=== PATIENT | female | born 1975 | race Caucasian/White ===

== ENCOUNTER 2019-10-25 07:44 | Outpatient (CLI) | payer MEDICARE, MEDICAID, SELFPAY ==
--- NOTE | 2019-10-26 | US_ITS ---
WS: [id number] Right upper quadrant ultrasound, 10/25/2019 Clinical Data: GRANULOMA OF LIVER Comparison: Right upper quadrant ultrasound, 01/30/2015. Findings: The gallbladder is absent The common bile duct is nondilated and there are no intrahepatic ductal abnormalities. Liver shows no cysts, masses or dilated intrahepatic ducts. The liver measures 16.96 cm. The pancreas is obscured by overlying bowel gas but no cyst, pseudocyst, or evidence of pancreatitis is noted. Right kidney measures 10.96 cm and no cyst, masses or hydronephrosis can be seen. The aorta and inferior vena cava show no vascular abnormalities. US/US liver [id number] Impression: 1. Absent gallbladder. 2. Negative for acute right upper quadrant abnormalities.
== END 2019-10-25 07:45 | disposition home or self-care (01) ==
PROVIDERS: Family Provider Family Medicine; PCP Family Medicine; Visit Provider Internal Medicine Rheumatology
DX: D86.89 Sarcoidosis of other sites (principal); Z90.49 Acquired absence of other specified parts of digestive tract
CPT/HCPCS: 76705

== ENCOUNTER 2019-11-09 07:04 | Outpatient (CLI) | payer MEDICARE, MEDICAID, SELFPAY | END 2019-11-09 07:05 | disposition home or self-care (01) | PROVIDERS: Family Provider Family Medicine; PCP Family Medicine; Visit Provider Internal Medicine Critical Care Medicine | DX: D86.0 Sarcoidosis of lung (principal) | CPT/HCPCS: 94060; 94726; 94729 ==

== ENCOUNTER 2019-11-14 09:26 | Outpatient (CLI) | payer MEDICARE, MEDICAID, SELFPAY ==
--- NOTE | 2019-11-14 09:38 | NM_ITS ---
WS: [id number] NUCLEAR MEDICINE PARATHYROID SCAN HISTORY: HYPERPARATHYROIDISM COMPARISON: None available. Patient is injected with 18.9 mCi technetium 99m Sestamibi. Static imaging of the anterior neck and u pper thorax submitted at injection time and 2 hours postinjection. Sternal notch marker and chin nadia ers are placed. Normal activity and uptake in the thyroid gland bilaterally on the early imaging. On the delayed imag ing, activity from the thyroid gland has washed out. There is no persistent focal nodule to suggest p arathyroid adenoma. NM/NM parathyroid [id number] IMPRESSION: No parathyroid adenoma identified.
== END 2019-11-14 09:27 | disposition home or self-care (01) ==
LOC: RAD 09:31
PROVIDERS: Family Provider Family Medicine; PCP Family Medicine; Visit Provider Internal Medicine Critical Care Medicine
DX: E21.3 Hyperparathyroidism, unspecified (principal)
CPT/HCPCS: 78070; A9500

== ENCOUNTER → 2019-11-28 14:17 | Outpatient (BNVA) | payer MEDICARE, MEDICAID, SELFPAY | PROVIDERS: Family Provider Family Medicine; PCP Family Medicine; Visit Provider Anesthesiology Pain Medicine | DX: D86.9 Sarcoidosis, unspecified (principal); M47.816 Spondylosis without myelopathy or radiculopathy, lumbar region; M25.50 Pain in unspecified joint | CPT/HCPCS: 99203; 99999 ==

== ENCOUNTER → 2019-12-04 08:25 | Outpatient (BNVA) | payer MEDICARE, MEDICAID, SELFPAY | PROVIDERS: Family Provider Family Medicine; PCP Family Medicine; Visit Provider Nurse Practitioner | DX: F43.12 Post-traumatic stress disorder, chronic (principal); F31.5 Bipolar disorder, current episode depressed, severe, with psychotic features | CPT/HCPCS: 99214 ==

== ENCOUNTER → 2019-12-06 09:29 | Outpatient (BNVA) | payer MEDICARE, MEDICAID, SELFPAY | PROVIDERS: Family Provider Family Medicine; PCP Family Medicine; Visit Provider Internal Medicine Rheumatology | DX: M06.00 Rheumatoid arthritis without rheumatoid factor, unspecified site (principal); Z79.899 Other long term (current) drug therapy; M47.816 Spondylosis without myelopathy or radiculopathy, lumbar region; D86.9 Sarcoidosis, unspecified | CPT/HCPCS: 36415; 80076; 82565; 85025; 85651; 86140 ==

== ENCOUNTER → 2019-12-06 09:52 | Outpatient (BNVA) | payer MEDICARE, MEDICAID, SELFPAY | PROVIDERS: Family Provider Family Medicine; PCP Family Medicine | DX: M06.00 Rheumatoid arthritis without rheumatoid factor, unspecified site (principal); Z79.899 Other long term (current) drug therapy; M47.816 Spondylosis without myelopathy or radiculopathy, lumbar region; D86.9 Sarcoidosis, unspecified | CPT/HCPCS: 85025 ==

== ENCOUNTER → 2019-12-10 12:19 | Outpatient (BNVA) | payer MEDICARE, MEDICAID, SELFPAY | PROVIDERS: Family Provider Family Medicine; PCP Nurse Practitioner Family; Visit Provider Anesthesiology Pain Medicine | DX: M47.816 Spondylosis without myelopathy or radiculopathy, lumbar region (principal) | CPT/HCPCS: 64493; 64494; 64495; 64520; 77003; J2001; J3490 ==

== ENCOUNTER → 2019-12-26 10:48 | Outpatient (BNVA) | payer MEDICARE, MEDICAID, SELFPAY | PROVIDERS: Family Provider Family Medicine; PCP Family Medicine; Visit Provider Anesthesiology Pain Medicine | DX: M47.816 Spondylosis without myelopathy or radiculopathy, lumbar region (principal); D86.9 Sarcoidosis, unspecified; M25.50 Pain in unspecified joint | CPT/HCPCS: 99213; 99999 ==

== ENCOUNTER → 2020-01-22 07:25 | Outpatient (BNVA) | payer MEDICARE, MEDICAID, SELFPAY | PROVIDERS: Family Provider Family Medicine; PCP Family Medicine; Visit Provider Nurse Practitioner | DX: F31.5 Bipolar disorder, current episode depressed, severe, with psychotic features (principal); F43.12 Post-traumatic stress disorder, chronic | CPT/HCPCS: 99214 ==

== ENCOUNTER → 2020-01-23 09:49 | Outpatient (BNVA) | payer MEDICARE, MEDICAID, SELFPAY | PROVIDERS: Family Provider Family Medicine; PCP Family Medicine; Visit Provider Anesthesiology Pain Medicine | DX: M47.816 Spondylosis without myelopathy or radiculopathy, lumbar region (principal); D86.9 Sarcoidosis, unspecified; M25.50 Pain in unspecified joint; Z79.899 Other long term (current) drug therapy | CPT/HCPCS: 99213 ==

== ENCOUNTER → 2020-02-05 11:44 | Outpatient (BNVA) | payer MEDICARE, MEDICAID, SELFPAY | PROVIDERS: Family Provider Family Medicine; PCP Family Medicine; Visit Provider Social Worker | DX: F43.12 Post-traumatic stress disorder, chronic (principal); F31.5 Bipolar disorder, current episode depressed, severe, with psychotic features | CPT/HCPCS: 90834 ==

== ENCOUNTER → 2020-03-04 07:45 | Outpatient (BNVA) | payer MEDICARE, MEDICAID, SELFPAY | PROVIDERS: Family Provider Family Medicine; PCP Family Medicine; Visit Provider Nurse Practitioner | DX: F43.12 Post-traumatic stress disorder, chronic (principal); F31.5 Bipolar disorder, current episode depressed, severe, with psychotic features | CPT/HCPCS: 99214 ==

== ENCOUNTER → 2020-03-05 08:43 | Outpatient (BNVA) | payer MEDICARE, MEDICAID, SELFPAY | PROVIDERS: Family Provider Family Medicine; PCP Family Medicine; Visit Provider Social Worker | DX: F31.5 Bipolar disorder, current episode depressed, severe, with psychotic features (principal); F43.12 Post-traumatic stress disorder, chronic | CPT/HCPCS: 90834 ==

== ENCOUNTER → 2020-03-07 10:05 | Outpatient (BNVA) | payer MEDICARE, MEDICAID, SELFPAY | PROVIDERS: Family Provider Family Medicine; PCP Nurse Practitioner Family; Visit Provider Anesthesiology Pain Medicine | DX: M47.816 Spondylosis without myelopathy or radiculopathy, lumbar region (principal); M54.9 Dorsalgia, unspecified; D86.9 Sarcoidosis, unspecified; M25.50 Pain in unspecified joint | CPT/HCPCS: 99214 ==

== ENCOUNTER → 2020-03-12 08:38 | Outpatient (BNVA) | payer MEDICARE, MEDICAID, SELFPAY | PROVIDERS: Family Provider Family Medicine; PCP Nurse Practitioner Family; Visit Provider Social Worker | DX: F31.5 Bipolar disorder, current episode depressed, severe, with psychotic features (principal); F43.12 Post-traumatic stress disorder, chronic | CPT/HCPCS: 90834 ==

== ENCOUNTER → 2020-03-24 12:58 | Outpatient (BNVA) | payer MEDICARE, MEDICAID, SELFPAY | PROVIDERS: Family Provider Family Medicine; PCP Registered Nurse; Visit Provider Anesthesiology Pain Medicine | DX: M47.816 Spondylosis without myelopathy or radiculopathy, lumbar region (principal) | CPT/HCPCS: 64493; 64494; 64495; J2001; J3490 ==

== ENCOUNTER → 2020-03-31 10:54 | Outpatient (BNVA) | payer MEDICARE, MEDICAID, SELFPAY | PROVIDERS: Family Provider Family Medicine; PCP Registered Nurse; Visit Provider Internal Medicine Rheumatology | DX: Z79.899 Other long term (current) drug therapy (principal) | CPT/HCPCS: 36415; 80076; 82565; 85025; 85651; 86140 ==

== ENCOUNTER → 2020-04-10 08:20 | Outpatient (BNVA) | payer MEDICARE, MEDICAID, SELFPAY | PROVIDERS: Family Provider Family Medicine; PCP Registered Nurse; Visit Provider Anesthesiology Pain Medicine | DX: M47.816 Spondylosis without myelopathy or radiculopathy, lumbar region (principal); M54.9 Dorsalgia, unspecified; D86.9 Sarcoidosis, unspecified; M25.50 Pain in unspecified joint | CPT/HCPCS: 99214 ==

== ENCOUNTER → 2020-04-16 14:12 | Outpatient (BNVA) | payer MEDICARE, MEDICAID, SELFPAY | PROVIDERS: Family Provider Family Medicine; PCP Registered Nurse; Visit Provider Anesthesiology Pain Medicine | DX: M47.816 Spondylosis without myelopathy or radiculopathy, lumbar region (principal); M54.9 Dorsalgia, unspecified | CPT/HCPCS: 64635; 64636; 77003; J1030; J2001 ==

== ENCOUNTER → 2020-04-30 07:33 | Outpatient (BNVA) | payer MEDICARE, MEDICAID, SELFPAY | PROVIDERS: Family Provider Family Medicine; PCP Registered Nurse; Visit Provider Nurse Practitioner | DX: F43.12 Post-traumatic stress disorder, chronic (principal); F31.5 Bipolar disorder, current episode depressed, severe, with psychotic features | CPT/HCPCS: 99213 ==

== ENCOUNTER 2020-05-09 11:21 | Outpatient (CLI) | payer MEDICARE, MEDICAID, SELFPAY ==
[2020-05-09 15:42] LABS: Calcium 8.9 mg/dL (8.5-10.5); Parathyroid Hormone 49.6 pg/mL (15-65)
== END 2020-05-09 11:22 | disposition home or self-care (01) ==
LOC: LAB 11:27
PROVIDERS: Internal Medicine Critical Care Medicine; Family Provider Family Medicine; PCP Registered Nurse; Visit Provider Nurse Practitioner Family
DX: E83.52 Hypercalcemia (principal)
CPT/HCPCS: 36415; 82310; 83970

== ENCOUNTER → 2020-05-16 13:05 | Outpatient (BNVA) | payer MEDICARE, MEDICAID, SELFPAY | PROVIDERS: Family Provider Family Medicine; PCP Registered Nurse; Visit Provider Anesthesiology Pain Medicine | DX: M47.816 Spondylosis without myelopathy or radiculopathy, lumbar region (principal); M54.9 Dorsalgia, unspecified; D86.9 Sarcoidosis, unspecified; M25.50 Pain in unspecified joint | CPT/HCPCS: 99212; 99213 ==

== ENCOUNTER 2020-05-30 09:23 | Outpatient (CLI) | payer MEDICARE, MEDICAID, SELFPAY ==
--- NOTE | 2020-05-30 09:29 | XRR_ITS ---
PROCEDURE INFORMATION: Exam: XR Right Foot Complete Exam date and time: 05/30/2020 9:45 AM Age: 44 years old Clinical indication: Condition or disease; Foot deformities; Hammer toe (acquired); Right; Additional info: Hammer toe evaluation TECHNIQUE: Imaging protocol: XR Right foot. Views: 3 or more views. COMPARISON: CR Foot 3 views, RIGHT* [id number] 09/17/2019 3:47 PM FINDINGS: Bones/joints: Hindfoot-midfoot and midfoot-forefoot articulations are normal. Phalanges without an acute process. Subtalar joint and the tibiotalar joint appears normal. Apparent flexion deformity of the 3rd and 4th rays. Previously noted. Soft tissues: Normal. Other findings: Metatarsals without fracture. XR/XR foot RT min 3V* [id number] IMPRESSION: No fracture or foreign body.
== END 2020-05-30 09:24 | disposition home or self-care (01) ==
LOC: RAD 09:26
PROVIDERS: PCP Nurse Practitioner Family; Visit Provider Podiatrist Foot & Ankle Surgery
DX: M20.41 Other hammer toe(s) (acquired), right foot (principal)
CPT/HCPCS: 73630

== ENCOUNTER → 2020-07-03 10:09 | Outpatient (BNVA) | payer MEDICARE, MEDICAID, SELFPAY | PROVIDERS: PCP Nurse Practitioner Family; Visit Provider Anesthesiology Pain Medicine | DX: M47.816 Spondylosis without myelopathy or radiculopathy, lumbar region (principal); M54.9 Dorsalgia, unspecified; D86.9 Sarcoidosis, unspecified; M25.50 Pain in unspecified joint | CPT/HCPCS: 99213 ==

== ENCOUNTER 2020-07-16 11:38 | Outpatient (CLI) | payer MEDICARE, MEDICAID, SELFPAY ==
--- NOTE | 2020-07-16 11:46 | ECG_ITS ---
[facility] Test Date: 2020-07-16 Pat Name: Bernie Stone Department: Room: Gender: Female [employer] Handler: : 1975 Requested By: Jennifer Tomas Order Number: [id number] Sanchez MD: Vickie Mercado M.D. Interpretive Statements NAME OF STUDY: TREADMILL STRESS ECHOCARDIOGRAM INDICATION: Chest Pain Baseline blood pressure of 103/68 mm Hg, heart rate of 60 beats per minute and oxygen saturation of 97%. EKG showed normal sinus rhythm, normal axis with nonspecific T wave abnormality. The patient exercised for 5 minutes 34 seconds on a standard Froilan protocol. Patient attained a maximum heart rate of 153 beats per minute(87% of the maximum predicted heart rate) with a blood pressure at the peak exercise of 193/93 mm Hg and oxygen saturation of 88%. The EKG at the peak exercise revealed sinus tachycardia with no significant ST-T wave changes. Patient did not have any chest pain or any significant arrhythmis with the exercise. Study was terminated due to exertional fatigue. During the recovery phase, there were no new changes. Blood pressure at the end of the recovery phase was 176/84 mm Hg with a heart rate of 84 beats per minute and oxygen saturation 97%. Echocardiographic images were obtained at rest, at peak stress and in recovery. CONCLUSION: 1. Normal EKG response to treadmill exercise. 2. No exercise-induced chest pain or cardiac arrhythmia 3. Slightly decreased exercise tolerance, attained a maximum of 7 METs. Maximum VO2 of 24.5 mL/kg/min. 4. Baseline normal blood pressure with normal response to exercise. 5. Echocardiographic portion of the study will be documented separately. Electronically Signed On 07-16-2020 17:43:51 CDT by Vickie Mercado M.D. [id number]
[2020-07-16 12:14] VITALS: BMI 36.0
--- NOTE | 2020-07-16 12:23 | USCV_ITS ---
Bernie Stone Age: 45 Gender: F : 1975 Exam Date: 07/16/2020 12:38 Ordering Phys: Jennifer Tomas Technologist: Bob Linton Exam Location: [facility] [place] Indication: chest pain Rhythm: Sinus Patient History: htn, obesity, Cardiac Medications: prazosin Medications in past 24 hours: none Contrast: Stress Results Protocol: Froilan Total dose(mL): Exercise Duration (min:sec): 5:34 METS: 7 Resting HR: 86 Resting BP: 103 / 68 Peak HR: 153 Peak BP: 237 / 93 Max Predicted HR: 174 88 % Max Predicted HR Target HR: 148 Double Product: 01114 Stress Summary: BP Response: normal Reason for Termination: target hr reached Cardiac Symptoms: sob ECG Analysis Resting ECG: Stress ECG: Arrhythmia: MEASUREMENTS (Male/Female) Normal Values FINDINGS Baseline images: Normal left ventricle ejection function without wall motion abnormality, estimated left ventricle ejection fraction around 65%. At peak exercise no significant wall motion abnormality noted left ventricle function remains hyperdynamic with good augmentation of cavity. Recovery: No significant wall motion abnormality noted. Recovery remains uneventful. CONCLUSIONS Echocardiographic portion of left ventricle is not suggestive of ischemia. EKG segment will be documented separately. Kashif Escobedo MD (Electronically Signed) Final Date: 16 July 2020 18:46 S
[2020-07-16 13:04] VITALS: BP 176/84; PULSE 83
== END 2020-07-16 11:39 | disposition home or self-care (01) ==
LOC: CDL 11:39
PROVIDERS: PCP Nurse Practitioner Family; Visit Provider Nurse Practitioner Family
DX: R07.9 Chest pain, unspecified (principal)
CPT/HCPCS: 93017; 93350

== ENCOUNTER → 2020-08-06 08:33 | Outpatient (BNVA) | payer MEDICARE, MEDICAID, SELFPAY | PROVIDERS: PCP Nurse Practitioner Family; Visit Provider Nurse Practitioner | DX: F43.12 Post-traumatic stress disorder, chronic (principal); F31.5 Bipolar disorder, current episode depressed, severe, with psychotic features | CPT/HCPCS: 99214 ==

== ENCOUNTER → 2020-08-28 07:33 | Outpatient (BNVA) | payer MEDICARE, MEDICAID, SELFPAY | PROVIDERS: PCP Nurse Practitioner Family; Visit Provider Nurse Practitioner | DX: F31.5 Bipolar disorder, current episode depressed, severe, with psychotic features (principal); F43.12 Post-traumatic stress disorder, chronic | CPT/HCPCS: 99214 ==

== ENCOUNTER → 2020-09-08 10:53 | Outpatient (BNVA) | payer MEDICARE, MEDICAID, SELFPAY | PROVIDERS: PCP Nurse Practitioner Family; Visit Provider Podiatrist Foot & Ankle Surgery | DX: M20.41 Other hammer toe(s) (acquired), right foot (principal); M20.42 Other hammer toe(s) (acquired), left foot | CPT/HCPCS: 87635 ==

== ENCOUNTER 2020-09-11 06:02 | Day surgery (SDC) | payer MEDICARE, MEDICAID, SELFPAY ==
[2020-09-10 16:19] VITALS: BMI 36.6
--- NOTE | 2020-09-11 | SCC_ITS ---
Procedure Done: Hammertoe Correction right third 23901 1 second of fluoroscopic guidance, for a cumulative dose of 0.005 mGy, was provided to Dr. Godfrey by the radiology department. C-arm images of the RIGHT foot were saved for the patient's permanent record. [facility]
[2020-09-11 06:16] VITALS: BP 170/122; PULSE 73; RESP 18; TEMP 36.2; O2SAT 96
[2020-09-11 06:29] VITALS: BP 122/86
[2020-09-11] MEDS: sodium chloride 0.9% 1,000 ML 30 ML IV (06:29)
[2020-09-11 06:37] VITALS: BMI 36.6
--- NOTE | 2020-09-11 06:38 | P.OP_ITS ---
Operative Report Date of procedure: September 11, 2020 Pre-op Diagnosis: Right third hammertoe Post-op diagnosis: same Post-op Findings: None Procedure Done: Hammertoe Correction right third [id number] Implants: 3-0 Prolene, 4-0 nylon, [place] 28 TenoTac small Specimens removed/disposition: None Pathology: none sent Surgeon: Errol Godfrey D.P.M. Premium Auditor: Enrrique Anesthesia: MAC Estimated blood loss: 5 mL Tourniquet time: See intraoperative documentation IV fluids: None Urine output: None Complications: None none Findings: None Condition: stable Disposition: PACU Brief History: Ms. Stone is a pleasant 45-year-old female complains of right third hammertoe pain, has tried accommodative shoes, spacers and padding without relief. Wishing to proceed with surgical intervention with hammertoe correction of the right third digit. She has transverse and sagittal plane components the main focus is sagittal plane deformity that is reducible and contracted at the distal interphalangeal joint and proximal interphalangeal joint. Discussed tendon transfer for hammertoe correction patient is agreeable wishes to proceed risks include pain, bleeding, numbness, infection, failure to correct deformity, overcorrection of deformity, transfer pressure, transfer lesion, damage to adjacent soft tissue structures, painful scar and need for further surgical intervention. Patient seen in preoperative holding, right foot identified and marked, informed consent signed answered all questions to patient satisfaction she wishes to proceed no guarantees written, expressed or implied. Procedure: Under mild sedation the patient was brought to the operating room and placed on the operating table in the supine position. A timeout was performed. Anesthesia was then administered by the anesthesia service. Local anesthesia injected by myself consisting of 15 cc of 0.5% Marcaine plain and a right third ray block fashion. Well-padded pneumatic tourniquet applied to the right ankle. Right lower extremity was scrubbed, prepped and draped utilizing normal aseptic technique. Attention was directed to the dorsum of the right proximal phalanx where the metatarsophalangeal joint was palpated just distal to this a linear longitudinal incision was made with a #15 blade through skin and blunt and sharp dissection c arried down through subcutaneous tissue down to the level periosteum with the extensor tendons retracted manually in a manual fashion medially. Care was taken to retract and preserve neurovascular and tendinous structures. All bleeders were ligated and cauterized as necessary. Guidewire was inserted perpendicular to the longitudinal axis of the proximal phalanx at the metaphyseal flare from dorsal to plantar followed by plantar incision at the same level of the proximal phalanx right third digit with dissection carried down to the flexor tendons as able to identify the flexor digitorum longus and brevis these were bisected and a hand drill utilized to sandoval the cortex plantarly and dorsally, incision site was flushed with saline solution. [place] TenoTac utilized to secure and transfer the flexor digitorum longus and brevis to the base of the right third proximal phalanx and secured with a small female fitting. Tendon transfer was secure and toe held in a rectus position for appr opriate tension. Incision site was flushed with saline solution. Right third toe was rectus in the sagittal plane both resting as well as loading the forefoot. Hardware placement confirmed utilizing intraoperative fluoroscopy. Incision sites were flushed with copious months of sterile saline solution dorsal incision closed with 4-0 nylon plantar incision closed with 3-0 Prolene. Incision sites were dressed with Adaptic, sterile 4 x 4, Kerlix and Rios wrap postop shoe was applied. Tourniquet was deflated and a prompt hyperemic response was noted to the distal digits of the right foot. Patient tolerated the procedure well and was transferred to the PACU with vital signs stable and vascular status intact. Following a period of postoperative monitoring she will be discharged home may be protected weightbearing in a postop shoe. She is to elevate her right foot while at rest. Was prescribed hydrocodone 10/325 mg every 4 hours as needed for pain she is to take this judiciously. Will follow up 09/17/2020 at 9:30 AM for dressing change and nursing visit.
--- NOTE | 2020-09-11 06:38 | P.HPUD_ITS ---
Surgery/Procedure H&P Update DATE OF PROCEDURE: September 11, 2020 DATE H&P PERFORMED: 08/20/20 H&P UPDATE INFORMATION: I have reviewed H&P completed within last 30 days, I have examined patient prior to procedure, No changes to prior documentation and H&P is in [facility] EMR on date indicated PREOP DIAGNOSIS: Right third hammertoe PLANNED PROCEDURE: Operation Date: 09/11/20 07:00 Proposed Procedures p Hammertoe Correction right third 73050 icd10 m20.41(Right) - Errol Godfrey DPM
--- NOTE | 2020-09-11 06:42 | ANES.PREANE2 ---
Pre-Anesthetic Assessment Pre-Anesthetic Assessment: Height/Weight: Height 1.57 m Weight 90.718 kg Temp Pulse Resp BP Pulse Ox 97.1 F L 73 18 122/86 96 09/11/20 06:16 09/11/20 06:16 09/11/20 06:16 09/11/20 06:29 09/11/20 06:16 Preop Diagnosis: Right third hammertoe Proposed Procedure: Operation Date: 09/11/20 07:00 Proposed Procedures p Hammertoe Correction right third 56875 icd10 m20.41(Right) - Errol Godfrey DPM Familial anesthetic complications: None Was Beta Kezia taken within 24 hours: N/A Last intake: Intake nPO > 8 hrs Last Liquid Date 09/10/20 Last Liquid Time 22:00 Last Solid Date 09/10/20 Last Solid Time 20:00 Social: Social History: No alcohol and No tobacco Exam: Pre-Anes Outpt Exam: alert, oriented x 3, clear to auscultation bilaterally and regular rate & rhythm Airway: Cervical ROM: WNL MP: 4 Dentition: Chipped and Other (missing (poor dentition)) Additional comments: large neck and tongue Pulmonary: Pulmonary: Asthma Comments: hypersomnia Metabolic: Metabolic: Morbid obesity Anesthetic Plan: ASA status: 2 Anesthesia: MAC Risk of > 500 ml blood loss (7ml/kg in children): No Meds/Allergies Current Medications: Current Medications Generic Name Dose Route Start Last Admin Trade Name Freq PRN Reason Stop Dose Admin Sodium Chloride 1,000 mls @ 30 ml s/hr 09/11/20 06:15 09/11/20 06:29 Sodium Chloride 0.9% IV 09/12/20 06:14 30 mls/hr .Q24H KATY Administration PFSH Anesthesia PFSH: Medical History Bipolar disorder, current episode depressed, severe, with psychotic features Calculus of left ureter Cystitis cystica DDD (degenerative disc disease) Depression Essential (primary) hypertension GERD (gastroesophageal reflux disease) Hepatic granuloma associated with sarcoidosis High risk medication use Hyperparathyroidism, unspecified Hypoglobulinemia Hypokalemia Immunization counseling Kidney stone Left breast mass Osteopenia Osteoporosis Other specified disorders involving the immune mechanism, not elsewhere classified Personal history of other (healed) physical injury and trauma Post-traumatic stress disorder, chronic Retained ureteral stent Sarcoidosis Surgical History H/O bilateral mastectomy History of appendectomy History of cholecystectomy History of hysterectomy Family History Other Cancer Diabetes Hypertension Psychiatric illness Rheumatoid arthritis Stroke Denies family history of CAD (coronary artery disease) Systemic lupus erythematosus (SLE) in adult Social History Smoking and tobacco status: former smoker Quit status (tobacco): has quit using tobacco Year quit tobacco: 1994 - 10/25 PPD x 3 Years Second hand smoke exposure: Yes Alcohol intake: never Lives independently: Yes Household members: spouse Marital status: Current occupational status: disabled History of recent travel: No Current gender identity: Female Data Anesthesia Cardiac Studies: No Data to Display
[2020-09-11] MEDS: lidocaine 1% INJ 20 mL 10 ML SUBCUT (07:25)
[2020-09-11 07:51] VITALS: BP 135/98; PULSE 80; RESP 16; TEMP 36.4; O2SAT 94
--- NOTE | 2020-09-11 07:54 | XR_ITS ---
WS: [id number] Exam: XR foot RT min 3V* [id number] Date/Time of Exam: 09/11/2020 7:54 AM Reason For Exam: post op No fracture or dislocation. A single screw appears to be positioned in the proximal aspect of the pro ximal phalanx of the third toe. Mild DJD at the first MP joint. Soft tissue swelling over the dorsum of the forefoot. XR/XR foot RT min 3V* [id number] IMPRESSION: 1. Single orthopedic screw position in the proximal phalanx of the third toe. N o other postoperative changes. Dorsal soft tissue swelling over the forefoot.
[2020-09-11 08:10] VITALS: BP 129/93; PULSE 88; RESP 16; TEMP 36.4; O2SAT 97
[2020-09-11] MEDS: HYDROcodone-acetaminophen 10-325 mg Tablet 1 TAB PO (08:44)
--- NOTE | 2020-09-11 15:47 | ANE.PACU2 ---
Inpatient post-anesthesia follow up: Airway intact: Yes Vital signs: Temperature 97.6 F Pulse Rate 88 Respiratory Rate 16 Blood Pressure 129/93 Pulse Oximetry 97 Oxygen Delivery Me thod Room Air Oxygen Flow Rate Fraction of Inspir ed Oxygen Hydration adequate: Yes Nausea and vomiting: No Pain level: 3 Mental status: Baseline
== END 2020-09-11 08:48 | disposition home or self-care (01) ==
PROVIDERS: PCP Nurse Practitioner Family; Visit Provider Podiatrist Foot & Ankle Surgery
PROC: (CPT 28285; principal; 2020-09-11 07:00)
DX: M20.41 Other hammer toe(s) (acquired), right foot (principal); J45.909 Unspecified asthma, uncomplicated; E66.01 Morbid (severe) obesity due to excess calories; Z68.36 Body mass index [BMI] 36.0-36.9, adult; I10 Essential (primary) hypertension; M19.90 Unspecified osteoarthritis, unspecified site; K21.9 Gastro-esophageal reflux disease without esophagitis; Z87.891 Personal history of nicotine dependence; F32.9 Major depressive disorder, single episode, unspecified
CPT/HCPCS: 28285; 12345; 73630; 76000; 96365; C1713; C9290; J0690; J2250; J2405; J2704; J3010; J3490; J7030

== ENCOUNTER → 2020-09-25 07:34 | Outpatient (BNVA) | payer MEDICARE, MEDICAID, SELFPAY | PROVIDERS: PCP Nurse Practitioner Family; Visit Provider Nurse Practitioner | DX: F31.5 Bipolar disorder, current episode depressed, severe, with psychotic features (principal); F43.12 Post-traumatic stress disorder, chronic | CPT/HCPCS: 99213 ==

== ENCOUNTER → 2020-10-13 09:54 | Outpatient (BNVA) | payer MEDICARE, MEDICAID, SELFPAY | PROVIDERS: PCP Nurse Practitioner Family; Visit Provider Anesthesiology Pain Medicine | DX: G89.29 Other chronic pain (principal); M47.816 Spondylosis without myelopathy or radiculopathy, lumbar region; M54.9 Dorsalgia, unspecified; D86.9 Sarcoidosis, unspecified; M25.50 Pain in unspecified joint | CPT/HCPCS: 99213; 99214 ==

== ENCOUNTER 2020-10-20 08:28 | Outpatient (CLI) | payer MEDICARE, MEDICAID, SELFPAY | END 2020-10-20 08:29 | disposition home or self-care (01) | LOC: RAD 07-17 13:14 | PROVIDERS: Visit Provider Podiatrist Foot & Ankle Surgery | DX: M20.41 Other hammer toe(s) (acquired), right foot (principal); Z98.890 Other specified postprocedural states | CPT/HCPCS: 73630 ==

== ENCOUNTER → 2020-11-25 07:41 | Outpatient (BNVA) | payer MEDICARE, MEDICAID, SELFPAY | PROVIDERS: PCP Nurse Practitioner Family; Visit Provider Nurse Practitioner | DX: F31.5 Bipolar disorder, current episode depressed, severe, with psychotic features (principal); F43.12 Post-traumatic stress disorder, chronic | CPT/HCPCS: 99214 ==

== ENCOUNTER → 2020-12-16 09:19 | Outpatient (BNVA) | payer MEDICARE, MEDICAID, SELFPAY | PROVIDERS: PCP Nurse Practitioner Family; Visit Provider Anesthesiology Pain Medicine | DX: M47.816 Spondylosis without myelopathy or radiculopathy, lumbar region (principal); M54.9 Dorsalgia, unspecified; D86.9 Sarcoidosis, unspecified; M25.50 Pain in unspecified joint | CPT/HCPCS: 99214 ==

== ENCOUNTER 2021-01-30 09:25 | Emergency (ER) | payer MEDICARE, MEDICAID, SELFPAY ==
[2021-01-30 09:28] VITALS: BP 158/112; PULSE 74; RESP 18; TEMP 36.3; O2SAT 97; BMI 36.6
[2021-01-30 09:33] VITALS: BP 151/111; PULSE 77; RESP 22; O2SAT 98
--- NOTE | 2021-01-30 09:42 | ED_ITS ---
HPI - Nausea/Vomiting/Diarrhea General: Chief complaint: Nausea/Vomiting/Diarrhea Stated complaint: N/V/D Time Seen by Provider: 01/30/21 09:28 History of Present Illness: HPI Narrative: Patient complains of waking up with nausea vomiting diarrhea this morning. Said she was feeling fine yesterday. Denies any sick contacts. Patient does have some chills. But denies fever. Has pressure upper abdomen. MD elicited complaint: nausea, vomiting, diarrhea and abdominal pain Onset (ago): hour(s) Description of vomiting: food contents Description of diarrhea: semi-solid Associated nausea: Yes Associated abdominal pain: Yes Location of pain: Epigastric Pain consistency: intermittent Severity: moderate Quality: dull Exacerbating factors: none Relieving factors: none Associated symtoms: Reports no associated symptoms and nausea; Denies anxiety, change in vision, chest pain or headache(s) Review of Systems Const: Denies: fever(s), chills or body aches Eyes: Denies: change in vision or blurry vision ENMT: Denies: throat pain or nasal congestion Card: Denies: chest pain or dyspnea on exertion Resp: Denies: dyspnea, productive cough or non-productive cough GI: Reports: nausea, vomiting and diarrhea Musc: Denies: extremity pain Skin/Breast: Denies: rash Neuro: Denies: headache(s) Psych: Denies: anxiety or depression Candido/Lymph: Denies: easy bruising PFSH ED PFSH: Medical History Bipolar disorder, current episode depressed, severe, with psychotic features Calculus of left ureter Cystitis cystica DDD (degenerative disc disease) Depression Essential (primary) hypertension GERD (gastroesophageal reflux disease) Hepatic granuloma associated with sarcoidosis High risk medication use Hyperparathyroidism, unspecified Hypoglobulinemia Hypokalemia Immunization counseling Kidney stone Left breast mass Osteopenia Osteoporosis Other specified disorders involving the immune mechanism, not elsewhere classified Personal history of other (healed) physical injury and trauma Post-traumatic stress disorder, chronic Retained ureteral stent Sarcoidosis Surgical History H/O bilateral mastectomy History of appendectomy History of cholecystectomy History of hysterectomy Family History Other Cancer Diabetes Hypertension Psychiatric illness Rheumatoid arthritis Stroke Denies family history of CAD (coronary artery disease) Systemic lupus erythematosus (SLE) in adult Social History Smoking and tobacco status: former smoker Quit status (tobacco): has quit using tobacco Year quit tobacco: 10/25 PPD x 3 Years Second hand smoke exposure: Yes Alcohol intake: never Lives independently: Yes Household members: spouse Marital status: Current occupational status: disabled History of recent travel: No Current gender identity: Female Physical Exam Const: COMMON NORMALS: no acute distress, average body habitus and patient oriented x3 HENMT: COMMON NORMALS: normocephalic HEAD & SCALP: normal to inspection and normocephalic FACE & SINUS: normal facial exam Eye: COMMON NORMALS: conjunctivae normal GENERAL EYE: appearance normal, both eyes and all related structures CONJUNCTIVA: Yes conjunctivae normal Neck/C-Spine: COMMON NORMALS: no JVD Chest: COMMONS NORMALS: normal inspection of the chest Resp: COMMON NORMALS: normal respiratory effort and clear to auscultation bilaterally AUSCULTATION: clear to auscultation bilaterally Cardio: COMMON NORMALS: no JVD, regular rate and regular rhythm RATE: regular rate RHYTHM: regular rhythm GI: COMMON NORMALS: Normal to inspection, nondistended, normoactive bowel sounds present PALPATION: Yes Tenderness to palpation present (GI) (Epigastric) Extremity: COMMON NORMALS: normal to inspection and full ROM Neuro: COMMON NORMALS: patient oriented x3 Course Vital Signs: Vital signs: Vital Signs Temperature 97.3 F L 01/30/21 09:28 Pulse Rate 75 01/30/21 11:57 Respiratory Rate 16 01/30/21 11:57 Blood Pressure 184/145 01/30/21 11:57 Pulse Oximetry 97 01/30/21 11:57 MDM - Nausea/Vomiting/Diarrhea MDM Narrative: Medical decision making narrative: Patient feeling much better since she got the Zofran. There is been no episodes of vomiting here. Labs are stable except she does have a high sugar. She is encouraged to follow-up with her primary care provider and also take seriously her diabetic diet and check her sugars now on days and bring that log back and to her primary care provider Lab Data: Labs: Lab Results 04/09/21 04/09/21 04/09/21 Range/Units 09:39 09:39 11:01 WBC 18.8 H (4.0-10.0) 10^3/ uL RBC 5.82 H (4.1-5.3) 10^6/u L Hgb 16.4 H (11.5-15.3) g/dL Hct 48.1 H (37.0-47.0) % MCV 82.6 (81-99) fL MCH 28.2 (28.0-34.0) pg MCHC 34.1 (30.0-36.0) g/dL RDW 12.6 (12.1-15.1) % Plt Count 398 (130-400) 10^3/c mm MPV 9.8 (7.4-10.4) fL Neut % (Auto) 83.5 % Lymph % (Auto) 9.6 % [place] % (Auto) 4.1 % Eos % (Auto) 1.6 % Baso % (Auto) 0.6 % Neut # (Auto) 15.74 H (1.8-7.7) 10^3/u L Lymph # (Auto) 1.8 (0.8-4.8) 10^3/u L [place] # (Auto) 0.8 (0.2-0.9) 10^3/u L Eos # (Auto) 0.3 (0.0-0.8) 10^3/u L Baso # (Auto) 0.1 (0.0-0.1) 10^3/u L Nucleated RBC % (a uto) 0 % Nucleated RBCs # 0.0 /100WBC Sodium 134 L (136-145) mmol/L Potassium 3.3 L (3.5-5.1) mmol/L Chloride 101 (98-107) mmol/L Carbon Dioxide 18 L (22-29) mmol/L Anion Gap 18.3 (5-19) BUN 11 (6-20) mg/dL Creatinine 0.9 (0.5-0.9) mg/dL GFR Calculation 67.4 L (90-130) mL/min Glucose 245 H (65-115) mg/dL Calculated Osmolal ity 286 (285-295) mOsm/k g Calcium 9.9 (8.5-10.5) mg/dL Total Bilirubin 0.6 (0.15-1.2) mg/dL AST 25 (0-32) U/L ALT 29 (0-33) U/L Alkaline Phosphata se 273 H (35-105) IU/L Total Protein 8.3 (6.6-8.7) g/dL Albumin 4.4 (3.5-5.2) g/dL Globulin 3.9 (1.3-4.6) g/dL Lipase 20 (13-60) U/L Urine Color Yellow (Yellow) Urine Appearance Clear (CLEAR) Urine pH 7 (5-7) Ur Specific Gravit y 1.005 (1.005-1.030) Urine Protein Neg (Negative) Urine Glucose (UA) Norm (Normal) Urine Ketones 1+ H (Negative) Urine Blood Neg (Negative) Urine Nitrate Negative (Negative) Urine Bilirubin Neg (Negative) Urine Urobilinogen Norm (Negative) mg/dL Ur Leukocyte Lore ase Negative (Negative) Discharge Plan Discharge Patient Disposition: Home Clinical Impression: Gastroenteritis Diabetes mellitus Qualifiers: Diabetes mellitus type: type 2 Diabetes mellitus group home insulin use: without group home use Diabetes mellitus complication status: without complication Qualified Code(s): E11.9 - Type 2 diabetes mellitus without complications Condition: Stable Prescriptions: New Zofran 4 mg tablet 4 mg PO Q8H 3 Days Qty: 9 RF: 0 No Action tizanidine 4 mg tablet 4 mg PO BID PRN (Reason: muscle spasticity) Qty: 60 RF: 0 gabapentin 600 mg tablet 600 mg PO TID MDD 3 Qty: 90 RF: 2 venlafaxine [Effexor XR] 150 mg capsule,extended release 24hr 150 mg PO QAM Qty: 30 RF: 2 metoprolol succinate 50 mg tablet extended release 24 hr 50 mg PO QAM RF: 0 metoprolol succinate 100 mg tablet extended release 24 hr 100 mg PO QAM RF: 0 metformin 500 mg tablet extended release 24 hr 500 mg PO BID RF: 0 Vitamin D3 1 cap PO DAILY RF: 0 Ambien 10 mg tablet 10 mg PO BEDTIME RF: 0 fluticasone propionate 50 mcg/actuation spray,suspension 2 spray intranasal DAILY RF: 0 Latuda 80 mg tablet 80 mg PO QAM RF: 0 Discharge Orders: Discharge ED (Routine); Ordered 01/30/21 Ordered By: Crow Calixto Referrals: Jennifer Tomas FNP [Primary Care Provider] - Discharge Diet: Advance as tolerated Discharge Activity: Increase activity as tolerated Patient Instructions: Type 2 Diabetes, Gastroenteritis (ED) Activity Restrictions/Additional Instructions: Follow-up with medical provider as directed. Take medications as prescribed. Return to the ER or your medical provider if condition worsens. Please read and understand discharge instructions. If any questions ask please. 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
--- NOTE | 2021-01-30 09:46 | CT_ITS ---
WS: [id number] CT ABDOMEN AND PELVIS WITH CONTRAST HISTORY: pain, N/V TECHNIQUE: Imaging performed of the abdomen and pelvis with IV contrast. Single phase imaging of the abdomen. Coronal and sagittal reformats are submitted. All CT scans at [facility] use at least one of these dose optimization techniques: automated exposure control; mA and/or kV adjustment per patient size (includes targeted exams where dose is matched to clinical indication); or iterativ e reconstruction. IV CONTRAST: Omnipaque 300; 95 mL IV. Oral contrast: No DLP: 1666.57 mGy.cm COMPARISON: 11/24/2017 Lower thorax: Lung bases are clear. Heart is normal size. Small hiatal hernia. Liver/biliary system: Diffuse hepatic steatosis and hepatomegaly. Gallbladder: Status post cholecystectomy. Pancreas: Pancreatic atrophy. No evidence for pancreatitis. Spleen: Normal. Adrenal glands: Normal. No LEFT adrenal nodule. Right kidney: Cortical cysts and calcifications. No solid mass or obstruction. Left kidney: Small scattered hypodensities. These are too small to characterize completely a cyst. No obstruction or large solid mass otherwise. Aorta: Mild atherosclerosis with no aneurysm. Lymphadenopathy: None. Free fluid: None. GI tract: There is mild increased amount of fluid in the small bowel. No definite mucosal thickening although there is some very mild hyperemia within the colon and LEFT small bowel loops. Prior appende ctomy. Abdominal wall: Mild stranding in the soft tissues may be due to edema or injection sites. Pelvis: Prior hysterectomy. No soft tissues masses or adenopathy. Minimally distended urinary bladder . Bones: Unremarkable. CT/CT abdomen pelvis w con* [id number] IMPRESSION: 1. Very mild increase fluid in the small bowel and colon with mild hyperemia i nvolving portions of the small bowel and colon. Suspect a mild gastroenteritis which may be infectious or inflammatory. No obstruction. 2. Prior cholecystectomy. 3. Hepatic steatosis and hepatomegaly. 4. No renal obstruction. 5. No ascites. 6. Mild stranding in the subcutaneous soft tissues of the abdominal wall. May be injection sites or edema or cellulitis.
[2021-01-30] MEDS: sodium chloride 0.9% 1,000 ML 999 ML IV (09:48)
[2021-01-30] MEDS: ondansetron 2 mg/ML SDV 2 mL 8 MG IVP (09:48)
[2021-01-30 09:50] LABS: Basophils # 0.1 10^3/uL (0.0-0.1); Basophils % 0.6 %; Eosinophils # 0.3 10^3/uL (0.0-0.8); Eosinophils % 1.6 %; Hematocrit 48.1 % (37.0-47.0); Hemoglobin 16.4 g/dL (11.5-15.3); Lymphocytes # 1.8 10^3/uL (0.8-4.8); Lymphocytes % 9.6 %; Mean Corpuscular HGB Conc 34.1 g/dL (30.0-36.0); Mean Corpuscular Hemoglobin 28.2 pg (28.0-34.0); Mean Corpuscular Volume 82.6 fL (81-99); Mean Platelet Volume 9.8 fL (7.4-10.4); Monocytes # 0.8 10^3/uL (0.2-0.9); Monocytes % 4.1 %; Neutrophils # 15.74 10^3/uL (1.8-7.7); Neutrophils % 83.5 %; Nucleated Red Blood Cells % 0 %; Platelet Count 398 10^3/cmm (130-400); Red Blood Count 5.82 10^6/uL (4.1-5.3); Red Cell Distribution Width 12.6 % (12.1-15.1); White Blood Count 18.8 10^3/uL (4.0-10.0)
[2021-01-30 10:00] LABS: Alanine Aminotransferase 29 U/L (0-33); Albumin Level 4.4 g/dL (3.5-5.2); Alkaline Phosphatase 273 IU/L (35-105); Anion Gap 18.3 (5-19); Aspartate Amino Transferase 25 U/L (0-32); Blood Urea Nitrogen 11 mg/dL (6-20); Calcium 9.9 mg/dL (8.5-10.5); Carbon Dioxide 18 mmol/L (22-29); Chloride 101 mmol/L (98-107); Globulin 3.9 g/dL (1.3-4.6); Glomerular Filtration Rate 67.4 mL/min (90-130); Glucose 245 mg/dL (65-115); Lipase 20 U/L (13-60); Osmolality Calculated 286 mOsm/kg (285-295); Potassium 3.3 mmol/L (3.5-5.1); Sodium 134 mmol/L (136-145); Total Bilirubin 0.6 mg/dL (0.15-1.2); Total Protein 8.3 g/dL (6.6-8.7)
[2021-01-30] MEDS: iohexol 300 mg/mL 100 mL Btl IV (10:48)
[2021-01-30] MEDS: potassium chloride ER 20 mEq Tablet PO (10:56)
[2021-01-30 11:05] LABS: Add Urine Microscopic? NO; Charge for UA Resulting for Rev
[2021-01-30 11:06] VITALS: BP 184/145; PULSE 80; RESP 15; O2SAT 99
[2021-01-30 11:13] LABS: Bilirubin Urine Neg (Negative); Blood Urine Neg (Negative); Glucose Urine UA Norm (Normal); Ketones Urine 1+ (Negative); Leukocyte Esterase Urine Negative (Negative); Nitrate Urine Negative (Negative); Protein Urine Neg (Negative); Specific Gravity, Urine 1.005 (1.005-1.030); Urine Appearance Clear (CLEAR); Urine Color Yellow (Yellow); Urobilinogen Urine Norm (Negative); pH Urine 7 (5-7)
--- NOTE | 2021-01-30 11:34 | PC.PHAR ---
pt states she takes care of her own medications-pt had rx written on 12/10/20 for buspirone 15mg qid and 11/25/20 for hydroxyzine hcl 50mg tid prn pt states she didnt fill this medication and hasnt taken it for a while-pt states she had a symbicort inhaler last filled on 10/16/20 but doesnt use it-pt states she takes metoprolol er 50mg and 100mg-ext med history shows 50mg last filled on 11/09/20 30d/s pt states she had a build up of this medication and states thats why she hasnt filled it recently-100mg er ext med history shows last filled on 01/27/21
[2021-01-30 11:57] VITALS: BP 184/145; PULSE 75; RESP 16; O2SAT 97
== END 2021-01-30 11:58 | disposition home or self-care (01) ==
PROVIDERS: Emergency Provider Nurse Practitioner Family; PCP Nurse Practitioner Family
DX: K52.9 Noninfective gastroenteritis and colitis, unspecified (principal); E11.9 Type 2 diabetes mellitus without complications; Z79.84 Long term (current) use of oral hypoglycemic drugs; Z87.891 Personal history of nicotine dependence; K21.9 Gastro-esophageal reflux disease without esophagitis
CPT/HCPCS: 74177; 80053; 81003; 83690; 85025; 96361; 96374; 99283; J2405; J7030; Q9967

== ENCOUNTER → 2021-02-18 12:42 | Outpatient (BNVA) | payer MEDICARE, MEDICAID, SELFPAY | PROVIDERS: PCP Nurse Practitioner Family; Visit Provider Nurse Practitioner | DX: F31.5 Bipolar disorder, current episode depressed, severe, with psychotic features (principal); F43.12 Post-traumatic stress disorder, chronic | CPT/HCPCS: 99214 ==

== ENCOUNTER 2021-03-19 11:35 | Emergency (ER) | payer MEDICARE, MEDICAID, SELFPAY ==
[2021-03-19 11:48] VITALS: BP 167/121; PULSE 66; RESP 16; TEMP 36.4; O2SAT 97; BMI 35.1
--- NOTE | 2021-03-19 12:02 | CT_ITS ---
WS: [id number] CT ABDOMEN AND PELVIS WITH CONTRAST HISTORY: Abdominal pain., Right-sided flank pain with vomiting. TECHNIQUE: Imaging performed of the abdomen and pelvis with IV contrast. Single phase imaging of the abdomen. Coronal and sagittal reformats are submitted. All CT scans at [facility] use at least one of these dose optimization techniques: automated exposure control; mA and/or kV adjustment per patient size (includes targeted exams where dose is matched to clinical indication); or iterativ e reconstruction. IV CONTRAST: Omnipaque 300; 95 mL IV. Oral contrast: No DLP: 1704.05 mGy.cm COMPARISON: 01/30/2021 Lower thorax: Lung bases are clear. Heart is normal size. Small hiatal hernia. Liver/biliary system: Moderate hepatomegaly and hepatic steatosis. No mass identified. No bile duct d ilatation. Gallbladder: Status post cholecystectomy. Pancreas: Normal size pancreas and pancreatic duct. No adjacent inflammation. Spleen: Normal size spleen. No mass or infarct. Adrenal glands: Normal. Right kidney: Normal size RIGHT kidney. 0.5 cm cyst in the upper pole. Interval development of moderate RIGHT hydroureteronephrosis since the prior examination. Ureter is dilated secondary to a 6 mm calcification in the distal ureter. Additio nal nonobstructing 6 mm calcification in the lower pole. Left kidney: Nonobstructing 2 mm calcification in the upper pole. Aorta: Mild atherosclerosis with no aneurysm. Lymphadenopathy: None. Free fluid: None. GI tract: Prior appendectomy. No GI tract obstruction or wall thickening. There are a few diverticula without acute diverticulitis. Abdominal wall: Soft tissue stranding within the abdominal wall probably from injection sites. Pelvis: Prior hysterectomy. No free fluid or adenopathy. Urinary bladder is not distended. Bones: Unremarkable. CT/CT abdomen pelvis w con* [id number] IMPRESSION: 1. Moderate RIGHT hydroureteronephrosis secondary to a 6 mm distal ureteral ca lcification. New since 01/30/2021. 2. Additional nonobstructing bilateral renal calculi. 3. Prior appendectomy and hysterectomy. 4. Marked hepatomegaly and hepatic steatosis.
--- NOTE | 2021-03-19 12:06 | W.ED.GENADLT ---
HPI - General Adult General: Chief complaint: General Medical Stated complaint: R flank pain Time Seen by Provider: 03/19/21 11:56 History of Present Illness: HPI narrative: 45 yo femal presents with R flank pain that began overnight. Radiates from her right flank down into the groin a little bit into her back she is not noticed any hematuria. She denies any vomiting or diarrhea no dysuria urgency or frequency no fever Onset (ago): hour(s) Location: abdomen and right Radiation: back and flank Severity: mild Quality: aching Pain Consistency: intermittent Relieving factors: none Exacerbating factors: none Associated symptoms: Reports nausea; Deny chest pain, confusion, cough, diaphoresis, decreased appetite, dyspnea, fevers/chills, headache(s), malaise, rash, palpitations, seizures, short of breath, syncope, vomiting or weakness Treatments prior to arrival: none Review of Systems Const: Denies: malaise or diaphoresis ENMT: Denies: throat pain, ear or mastoid pain, nasal discharge or nasal congestion Card: Denies: chest pain, palpitations or syncope Resp: Denies: dyspnea GI: Reports: nausea; Denies: vomiting : Denies: flank pain, difficulty voiding, dysuria, urinary frequency or urinary urgency Skin/Breast: Denies: rash Neuro: Denies: headache(s) or confusion PFSH ED PFSH: Medical History Bipolar disorder, current episode depressed, severe, with psychotic features Calculus of left ureter Cystitis cystica DDD (degenerative disc disease) Depression Essential (primary) hypertension GERD (gastroesophageal reflux disease) Hepatic granuloma associated with sarcoidosis High risk medication use Hyperparathyroidism, unspecified Hypoglobulinemia Hypokalemia Immunization counseling Kidney stone Left breast mass Osteopenia Osteoporosis Other specified disorders involving the immune mechanism, not elsewhere classified Personal history of other (healed) physical injury and trauma Post-traumatic stress disorder, chronic Retained ureteral stent Sarcoidosis Surgical History H/O bilateral mastectomy History of appendectomy History of cholecystectomy History of hysterectomy Family History Other Cancer Diabetes Hypertension Psychiatric illness Rheumatoid arthritis Stroke Denies family history of CAD (coronary artery disease) Systemic lupus erythematosus (SLE) in adult Social History Smoking and tobacco status: former smoker Quit status (tobacco): has quit using tobacco Year quit tobacco: 1994 - 10/25 PPD x 3 Years Second hand smoke exposure: Yes Alcohol intake: never Lives independently: Yes Household members: spouse Marital status: Current occupational status: disabled History of recent travel: No Current gender identity: Female Physical Exam Const: COMMON NORMALS: no acute distress GENERAL APPEARANCE: cooperative and comfortable ORIENTATION/CONSCIOUSNESS: Yes awake, Yes oriented to person, Yes oriented to place and Yes oriented to time HENMT: COMMON NORMALS: normocephalic, atraumatic and hearing grossly normal bilaterally HEAD & SCALP: normocephalic and atraumatic Neck/C-Spine: COMMON NORMALS: no JVD Resp: COMMON NORMALS: normal respiratory effort, No retractions, No use of accessory muscles and clear to auscultation bilaterally AUSCULTATION: clear to auscultation bilaterally Cardio: COMMON NORMALS: no JVD, regular rate, regular rhythm and No murmurs present (Cardio) RATE: regular rate RHYTHM: regular rhythm GI: COMMON NORMALS: Soft to palpation and No hepatosplenomegaly present AUSCULTATION: Yes normoactive bowel sounds PALPATION: Yes Soft to palpation, No Tenderness to palpation present (GI), No Guarding due to palpation present (GI) and Yes No hepatosplenomegaly present : BLADDER/KIDNEY EXAM: Yes CVA tenderness Back/Pelvis: GENERAL BACK: Yes CVA tenderness CVA tenderness: right Extremity: COMMON NORMALS: normal to inspection, capillary refill normal, no clubbing, cyanosis or edema, no calf tenderness and no pedal edema Neuro: SENSORIUM/ORIENTATION: Yes oriented to person, Yes oriented to place and Yes oriented to time Skin: COMMON NORMALS: no rashes or lesions noted GENERAL SKIN EXAM: no rashes or lesions noted Course Vital Signs: Vital signs: Vital Signs Temperature 97.5 F L 03/19/21 11:48 Pulse Rate 66 03/19/21 11:48 Respiratory Rate 18 03/19/21 13:26 Blood Pressure 167/121 03/19/21 11:48 Pulse Oximetry 98 03/19/21 13:26 MDM - General Adult MDM Narrative: Medical decision making narrative: Reviewed findings with the patient. Her pain is under much better control she has a 6 mm distal ureteral stone. Discussed Dr. Elder as well with her pain under control discharge home with hydrocodone encourage her to be liberal with using pain medications to prevent worsening of symptoms. Also give her tamsulosin and set up to see Dr. Mao tomorrow have her strain her urine return if pain is uncontrolled Lab Data: Labs: Lab Results 03/19/21 03/19/21 03/19/21 Range/Units 12:15 12:15 13:06 WBC 11.7 H (4.0-10.0) 10^3/ uL RBC 5.27 (4.1-5.3) 10^6/u L Hgb 15.0 (11.5-15.3) g/dL Hct 44.6 (37.0-47.0) % MCV 84.6 (81-99) fL MCH 28.5 (28.0-34.0) pg MCHC 33.6 (30.0-36.0) g/dL RDW 12.8 (12.1-15.1) % Plt Count 294 (130-400) 10^3/c mm MPV 9.4 (7.4-10.4) fL Neut % (Auto) 68.3 % Lymph % (Auto) 23.6 % Ross % (Auto) 4.4 % Eos % (Auto) 2.6 % Baso % (Auto) 0.7 % Neut # (Auto) 7.96 H (1.8-7.7) 10^3/u L Lymph # (Auto) 2.8 (0.8-4.8) 10^3/u L Ross # (Auto) 0.5 (0.2-0.9) 10^3/u L Eos # (Auto) 0.3 (0.0-0.8) 10^3/u L Baso # (Auto) 0.1 (0.0-0.1) 10^3/u L Nucleated RBC % (a uto) 0 % Nucleated RBCs # 0.0 /100WBC Sodium 136 (136-145) mmol/L Potassium 3.6 (3.5-5.1) mmol/L Chloride 101 (98-107) mmol/L Carbon Dioxide 22 (22-29) mmol/L Anion Gap 16.6 (5-19) BUN 6 (6-20) mg/dL Creatinine 0.6 (0.5-0.9) mg/dL GFR Calculation 107.6 (90-130) mL/min Glucose 306 H (65-115) mg/dL Calculated Osmolal ity 291 (285-295) mOsm/k g Calcium 8.3 L (8.5-10.5) mg/dL Total Bilirubin 0.4 (0.15-1.2) mg/dL AST 31 (0-32) U/L ALT 30 (0-33) U/L Alkaline Phosphata se 219 H (35-105) IU/L Total Protein 7.0 (6.6-8.7) g/dL Albumin 4.0 (3.5-5.2) g/dL Globulin 3.0 (1.3-4.6) g/dL Lipase 23 (13-60) U/L Urine Color Yellow (Yellow) Urine Appearance Cloudy (CLEAR) Urine pH 7 (5-7) Ur Specific Gravit y 1.005 (1.005-1.030) Urine Protein Trace (Negative) Urine Glucose (UA) 4+ H (Normal) Urine Ketones Negative (Negative) Urine Blood 3+ H (Negative) Urine Nitrate Negative (Negative) Urine Bilirubin Neg (Negative) Urine Urobilinogen Norm (Negative) mg/dL Ur Leukocyte Lroe ase 1+ H (Negative) Urine RBC 0-4 H (0-2) /hpf Urine WBC 5-10 H (0-5) /hpf Ur Squamous Epith Cells 0-4 H (0-5) /hpf Amorphous Sediment Not Reportable Urine Bacteria Trace (NONE) /hpf Discharge Plan Discharge Patient Disposition: Home Clinical Impression: Right nephrolithiasis Condition: Stable Prescriptions: New hydrocodone-acetaminophen 5-325 mg tablet 1 tab PO Q6H PRN (Reason: pain) Qty: 20 RF: 0 Zofran 4 mg tablet 4 mg PO Q6H PRN (Reason: nausea and vomiting) Qty: 15 RF: 0 tamsulosin 0.4 mg capsule 0.4 mg PO DAILY Qty: 14 RF: 0 No Action gabapentin 600 mg tablet 600 mg PO TID MDD 3 Qty: 90 RF: 2 venlafaxine [Effexor XR] 150 mg capsule,extended release 24hr 150 mg PO QAM Qty: 30 RF: 2 Ambien 10 mg tablet 10 mg PO BEDTIME Qty: 30 RF: 0 buspirone 15 mg tablet 15 mg PO QID Qty: 480 RF: 0 hydroxyzine HCl 25 mg tablet 50 mg PO TID PRN (Reason: anxiety) Qty: 180 RF: 0 cyclobenzaprine 10 mg tablet 10 mg PO TID PRN (Reason: Muscle Spasm) RF: 0 hydrochlorothiazide 12.5 mg capsule 12.5 mg PO QAM RF: 0 Excedrin Migraine 250-250-65 mg Tablet 2 tab PO PRN RF: 0 Farxiga 5 mg tablet 5 mg PO QAM RF: 0 Latuda 80 mg tablet 80 mg PO QAM RF: 0 metoprolol succinate 50 mg tablet extended release 24 hr 50 mg PO QAM RF: 0 metoprolol succinate 100 mg tablet extended release 24 hr 100 mg PO QAM RF: 0 metformin 500 mg tablet extended release 24 hr 1,000 mg PO BID RF: 0 Vitamin D3 1 cap PO DAILY RF: 0 fluticasone propionate 50 mcg/actuation spray,suspension 2 spray intranasal DAILY RF: 0 Discharge Orders: Discharge ED (Routine); Ordered 03/19/21 Ordered By: José Miguel Dejesus Referrals: Jennifer Tomas FNP [Primary Care Provider] - Discharge Diet: Usual diet Discharge Activity: Increase activity as tolerated Patient Instructions: Opioid Safety Activity Restrictions/Additional Instructions: Case management will make a follow-up appointment with urology for you. Strain your urine to catch the stone to submit for pathology. The pain is not controlled at home return to the emergency room. Coding Level of Care Code ED Bad Credit Collector for Patience Contreras Exam Comprehensive
[2021-03-19] MEDS: sodium chloride 0.9% 1,000 ML 999 ML IV (12:24)
[2021-03-19] MEDS: ondansetron 2 mg/ML SDV 2 mL 4 MG IVP (12:25)
[2021-03-19 12:26] VITALS: RESP 18
[2021-03-19 12:26] LABS: Basophils # 0.1 10^3/uL (0.0-0.1); Basophils % 0.7 %; Eosinophils # 0.3 10^3/uL (0.0-0.8); Eosinophils % 2.6 %; Hematocrit 44.6 % (37.0-47.0); Lymphocytes # 2.8 10^3/uL (0.8-4.8); Lymphocytes % 23.6 %; Mean Corpuscular HGB Conc 33.6 g/dL (30.0-36.0); Mean Corpuscular Hemoglobin 28.5 pg (28.0-34.0); Mean Corpuscular Volume 84.6 fL (81-99); Mean Platelet Volume 9.4 fL (7.4-10.4); Monocytes # 0.5 10^3/uL (0.2-0.9); Monocytes % 4.4 %; Neutrophils # 7.96 10^3/uL (1.8-7.7); Neutrophils % 68.3 %; Nucleated Red Blood Cells % 0 %; Platelet Count 294 10^3/cmm (130-400); Red Blood Count 5.27 10^6/uL (4.1-5.3); Red Cell Distribution Width 12.8 % (12.1-15.1); White Blood Count 11.7 10^3/uL (4.0-10.0)
[2021-03-19] MEDS: morphine 4 mg/mL SDV 1 mL IVP ×2 (12:26→13:26)
--- NOTE | 2021-03-19 12:31 | PC.PHAR ---
pt states she takes care of her own medications-pt states her lisinopril 20mg was dced ext med history shows last filled on 03/09/21 30d/s-pt states she has latuda but doesnt take it
[2021-03-19 12:52] LABS: Alanine Aminotransferase 30 U/L (0-33); Alkaline Phosphatase 219 IU/L (35-105); Aspartate Amino Transferase 31 U/L (0-32); Blood Urea Nitrogen 6 mg/dL (6-20); Calcium 8.3 mg/dL (8.5-10.5); Carbon Dioxide 22 mmol/L (22-29); Chloride 101 mmol/L (98-107); Glomerular Filtration Rate 107.6 mL/min (90-130); Glucose 306 mg/dL (65-115); Lipase 23 U/L (13-60); Osmolality Calculated 291 mOsm/kg (285-295); Sodium 136 mmol/L (136-145); Total Bilirubin 0.4 mg/dL (0.15-1.2)
[2021-03-19 12:54] LABS: Anion Gap 16.6 (5-19); Potassium 3.6 mmol/L (3.5-5.1)
[2021-03-19 13:26] VITALS: RESP 18; O2SAT 98
[2021-03-19 13:59] LABS: Add Urine Microscopic? YES; Bacteria Urine TRACE /hpf; Bilirubin Urine Neg (Negative); Blood Urine 3+ (Negative); Glucose Urine UA 4+ (Normal); Ketones Urine Negative (Negative); Leukocyte Esterase Urine 1+ (Negative); Nitrate Urine Negative (Negative); Protein Urine Trace (Negative); RBC Urine 0-4 /hpf (0-2); Specific Gravity, Urine 1.005 (1.005-1.030); Squamous Epithelial Cell Urine 0-4 /hpf (0-5); Urine Appearance Cloudy (CLEAR); Urine Color Yellow (Yellow); Urobilinogen Urine Norm (Negative); pH Urine 7 (5-7)
--- NOTE | 2021-03-19 14:25 | DCPLANNER ---
fast food services manager had message to schedule a follow up appointment for patient with Dr. Mao. fast food services manager called the office of Dr. Mao, spoke with Lyndsey, gave clinic patients information. fast food services manager was told that patients information would be printed and reviewed. Clinic will call patient with appointment information.
--- NOTE | 2021-03-20 09:32 | DCPLANNER ---
Patient had a follow up appointment scheduled for 03.20.[address] Mao - patient did attend appointment.
== END 2021-03-19 14:02 | disposition home or self-care (01) ==
PROVIDERS: Physician Assistant; Emergency Provider Family Medicine; PCP Nurse Practitioner Family
DX: N20.0 Calculus of kidney (principal); Z87.442 Personal history of urinary calculi; I10 Essential (primary) hypertension; Z87.891 Personal history of nicotine dependence
CPT/HCPCS: 74177; 80053; 81001; 83690; 85025; 96361; 96374; 99284; J2270; J2405; J7030; Q9967

== ENCOUNTER 2021-03-20 07:39 | Outpatient (CLI) | payer MEDICARE, MEDICAID, SELFPAY ==
--- NOTE | 2021-03-20 07:48 | XR_ITS ---
WS: [id number] Exam: XR KUB [id number] Date/Time of Exam: 03/20/2021 7:54 AM Reason For Exam: STONES Comparison 06/20/2019. Small calcification superimpose both kidneys and may represent renal stones. No bowel obstruction or free air. Visualized organ margins are intact. Signs of prior cholecystectomy. Additional surgical cl ips seen in the right and left abdomen and right pelvis. Moderate amount stool in the colon. Numerous surgical clips in the lower pelvis. XR/XR KUB [id number] IMPRESSION: 1. Small calcification superimpose both kidneys and may represent renal calculi . 2. No acute abdominal process. Constipation. 3. Postoperative changes of the abdomen and pelvis.
== END 2021-03-20 07:40 | disposition home or self-care (01) ==
LOC: RAD 07:43
PROVIDERS: PCP Nurse Practitioner Family; Visit Provider Urology
DX: N20.0 Calculus of kidney (principal); K59.00 Constipation, unspecified
CPT/HCPCS: 74018; 81003; 87077; 87086; 87184

== ENCOUNTER 2021-03-24 08:16 | Outpatient (CLI) | payer MEDICARE, MEDICAID, SELFPAY ==
--- NOTE | 2021-03-24 08:15 | XRR_ITS ---
PROCEDURE INFORMATION: Exam: XR Abdomen Exam date and time: 03/24/2021 8:36 AM Age: 45 years old Clinical indication: Pain and condition or disease; Kidney or ureter condition; Calculus (stone) in kidney; Other: Left flank pain; Prior surgery; Surgery type: Gb, appy, hyst; Additional info: N20.0 - calculus of kidney TECHNIQUE: Imaging protocol: XR of the abdomen. Views: Frontal supine view of the abdomen. 1 View. COMPARISON: CR XR KUB [id number] 03/20/2021 8:02 AM FINDINGS: Gastrointestinal tract: Nonobstructive bowel gas pattern. There is a moderate amount of stool throughout the colon and rectum, suggestive of constipation. Organs: Cholecystectomy clips project over the right upper quadrant. Other surgical clips are seen projecting over the mid abdomen and pelvis bilaterally. Evaluation of the kidneys is limited by overlying bowel content. There is a 0.4 cm density projecting over the left lower kidney shadow, which may represent a nonobstructing stone. Multiple bilateral pelvic phleboliths noted. Bones/joints: Degenerative changes of the spine seen. XR/XR KUB [id number] IMPRESSION: No clear evidence of renal calculus. Possible nonobstructing stone in the left lower kidney.
== END 2021-03-24 08:17 | disposition home or self-care (01) ==
PROVIDERS: PCP Nurse Practitioner Family; Visit Provider Urology
DX: N20.0 Calculus of kidney (principal); Z20.822 Contact with and (suspected) exposure to COVID-19
CPT/HCPCS: 74018; 81003; 87635

== ENCOUNTER 2021-04-16 14:29 | Emergency (ER) | payer MEDICARE, MEDICAID, SELFPAY ==
[2021-04-16 14:59] VITALS: BP 131/92; PULSE 71; RESP 16; TEMP 36.7; O2SAT 96; BMI 34.7
[2021-04-16 15:57] VITALS: BP 158/100; PULSE 84; RESP 16; O2SAT 98
--- NOTE | 2021-04-16 16:23 | W.ED.BACK ---
HPI - Back Pain/Injury General: Chief Complaint: Back Pain/Injury Stated Complaint: back pain History of Present Illness: HPI Narrative: Patient is a 45-year-old female comes to the ED with acute on chronic back pain. Patient states that she has had on and off lower back pain for a long time. She says approximately 2 days ago she started having worsening lower back pain with pain radiating down into both legs. She says the pain is worse with movement. She denies any injury or trauma or fall to cause worsening symptoms. Denies any weakness to lower extremities, bladder or bowel incontinence and pelvic anesthesia. Associated symptoms: Deny abdominal pain, chills, dysuria, fatigue, fever(s), hematuria, nausea or vomiting Review of Systems Const: Denies: fever(s), chills or fatigue Eyes: Denies: change in vision or eye discomfort ENMT: Denies: throat pain, odynophagia, nasal discharge or nasal congestion Card: Denies: chest pain, palpitations, edema, swelling of feet/ankles, dyspnea on exertion or orthopnea Resp: Denies: dyspnea, productive cough or non-productive cough GI: Denies: abdominal pain, nausea, vomiting, diarrhea, constipation or hematochezia : Denies: flank pain, dysuria or hematuria Musc: Reports: back pain; Denies: neck pain or extremity swelling Skin/Breast: Denies: rash or new lesions Neuro: Denies: headache(s), numbness in extremities or weakness in extremities PFS ED PFSH: Medical History Bilateral renal stones Bipolar disorder, current episode depressed, severe, with psychotic features Calculus of left ureter Cystitis cystica DDD (degenerative disc disease) Depression Essential (primary) hypertension GERD (gastroesophageal reflux disease) Hepatic granuloma associated with sarcoidosis High risk medication use Hyperparathyroidism, unspecified Hypoglobulinemia Hypokalemia Immunization counseling Kidney stone Left breast mass Osteopenia Osteoporosis Other specified disorders involving the immune mechanism, not elsewhere classified Personal history of other (healed) physical injury and trauma Post-traumatic stress disorder, chronic Retained ureteral stent Sarcoidosis Surgical History H/O bilateral mastectomy History of appendectomy History of cholecystectomy History of hysterectomy Family History Other Cancer Diabetes Hypertension Psychiatric illness Rheumatoid arthritis Stroke Denies family history of CAD (coronary artery disease) Systemic lupus erythematosus (SLE) in adult Social History Smoking and tobacco status: former smoker Quit status (tobacco): has quit using tobacco Year quit tobacco: 10/25 PPD x 3 Years Second hand smoke exposure: Yes Alcohol intake: never Lives independently: Yes Household members: spouse Marital status: Current occupational status: disabled History of recent travel: No Current gender identity: Female Physical Exam Const: COMMON NORMALS: no acute distress, patient oriented x3 and alert GENERAL APPEARANCE: cooperative and comfortable HENMT: COMMON NORMALS: normocephalic HEAD & SCALP: normocephalic MOUTH: Normal oral and palatal mucosa present THROAT: posterior oropharynx normal and uvula midline Neck/C-Spine: COMMON NORMALS: supple GENERAL: Yes normal visual inspection Resp: COMMON NORMALS: normal respiratory effort, No retractions, No use of accessory muscles and clear to auscultation bilaterally AUSCULTATION: clear to auscultation bilaterally Cardio: COMMON NORMALS: regular rate, regular rhythm, S1 normal heart sound present, S2 normal heart sound present, No gallops present (Cardio), No clicks present (Cardio), No murmurs present (Cardio) and Peripheral pulses 2+ throughout RATE: regular rate RHYTHM: regular rhythm HEART SOUNDS: S1 normal heart sound present and S2 normal heart sound present PERIPHERAL PULSES: Peripheral pulses 2+ throughout GI: COMMON NORMALS: Normal to inspection, nondistended, normoactive bowel sounds present, Soft to palpation, non-tender and no masses PALPATION: Yes Soft to palpation : COMMON NORMALS: Yes no CVA tenderness BLADDER/KIDNEY EXAM: Yes no CVA tenderness Back/Pelvis: COMMON NORMALS: no CVA tenderness LUMBAR SPINE/LOWER BACK: Yes pain with ROM and Yes paraspinal muscle tenderness Lumbar paraspinal muscle tenderness: bilateral Bilateral lumbar paraspinal muscle tenderness: L4 and L5 Extremity: COMMON NORMALS: normal to inspection Neuro: COMMON NORMALS: patient oriented x3 and moves all extremities SENSORIUM/ORIENTATION: Yes alert Skin: GENERAL SKIN EXAM: dry skin Course Vital Signs: Vital signs: Vital Signs Temperature 98.0 F 04/16/21 14:59 Pulse Rate 84 04/16/21 15:57 Respiratory Rate 16 04/16/21 15:57 Blood Pressure 158/100 04/16/21 15:57 Pulse Oximetry 98 04/16/21 15:57 MDM - Back Pain/Injury MDM Narrative: Medical decision making narrative: Patient is a 45-year-old female comes to the ED with acute on chronic lower back pain. She says she is having pain rating down both legs. Denies any accident or trauma to cause pain. Denies any cauda equina symptoms. Patient has some para spinal lumbar muscle tenderness bilaterally at the L4 and L5 but rest of the exam is benign. Patient was given a dose of Toradol and Decadron while here in the ED. She was discharged home with a prescription for cyclobenzaprine, Medrol Dosepak and meloxicam. She was told to follow-up with their PCP in 7 to 10 days for reevaluation. Return ED precautions given. Patient stood agree with plan. Discharge Plan Discharge Patient Disposition: Home Clinical Impression: Lumbar radiculopathy Condition: Stable Prescriptions: New methylprednisolone 4 mg tablets,dose pack See Rx Instructions .ROUTE .COMPLEX Qty: 21 RF: 0 cyclobenzaprine 10 mg tablet 10 mg PO TID PRN (Reason: muscle spasm) Qty: 15 RF: 0 meloxicam 15 mg tablet 15 mg PO DAILY Qty: 20 RF: 0 No Action venlafaxine [Effexor XR] 150 mg capsule,extended release 24hr 150 mg PO QAM Qty: 30 RF: 2 buspirone 15 mg tablet 15 mg PO QID Qty: 480 RF: 0 sulfamethoxazole-trimethoprim 800-160 mg tablet 1 tab PO BID Qty: 60 RF: 1 oxycodone-acetaminophen [Percocet] 5-325 mg tablet 1 tab PO Q6H PRN (Reason: pain) 7 Days Qty: 14 RF: 0 Ambien 10 mg tablet 10 mg PO BEDTIME Qty: 30 RF: 0 cyclobenzaprine 10 mg tablet 10 mg PO TID PRN (Reason: Muscle Spasm) RF: 0 Excedrin Migraine 250-250-65 mg Tablet 2 tab PO PRN RF: 0 Farxiga 5 mg tablet 5 mg PO QAM RF: 0 ondansetron HCl [Zofran] 4 mg tablet 4 mg PO Q6H PRN (Reason: nausea and vomiting) Qty: 15 RF: 0 tamsulosin 0.4 mg capsule 0.4 mg PO DAILY Qty: 14 RF: 0 metformin 500 mg tablet extended release 24 hr 1,000 mg PO BID RF: 0 Discharge Orders: Discharge ED (Routine); Ordered 04/16/21 Ordered By: Scar Hardy Referrals: Jennifer Tomas FNP [Referring] - Discharge Diet: Regular Discharge Activity: Increase activity as tolerated Patient Instructions: Lumbar Radiculopathy (ED) Activity Restrictions/Additional Instructions: Follow-up with medical provider as directed in 7 to 10 days for reevaluation. Take medications as prescribed. Apply cold pack on back to help with symptoms and try to stretch lower back daily. Return to the ER or your medical provider if condition worsens. Please read and understand discharge instructions. Thank you for choosing [facility] for your healthcare needs today. Please realize this is an emergency room and that we are providing you with a medical screening exam and this may not be complete and all inclusive of all the testing and or work up that you may need to determine your ailment or severity of your illness. It is very important that you follow up as instructed or that you return to the Emergency Department should you have concerns or if your condition changes or worsens in any way. Coding Level of Care Code ED Senior Architect/Design Manager for Patience Fwann marie Exam Comprehensive
[2021-04-16] MEDS: ketorolac 60 mg/2 mL INJ IM (16:38)
[2021-04-16] MEDS: dexamethasone 10 mg/mL INJ IM (16:39)
== END 2021-04-16 17:32 | disposition home or self-care (01) ==
PROVIDERS: Emergency Provider Physician Assistant
DX: M54.16 Radiculopathy, lumbar region (principal); Z79.84 Long term (current) use of oral hypoglycemic drugs; I10 Essential (primary) hypertension; Z87.891 Personal history of nicotine dependence
CPT/HCPCS: 96372; 99283; J1100; J1885

== ENCOUNTER → 2021-05-20 08:44 | Outpatient (BNVA) | payer MEDICARE, MEDICAID, SELFPAY | PROVIDERS: Visit Provider Nurse Practitioner | DX: F31.5 Bipolar disorder, current episode depressed, severe, with psychotic features (principal); F43.12 Post-traumatic stress disorder, chronic | CPT/HCPCS: 99214 ==

== ENCOUNTER → 2021-08-27 07:59 | Outpatient (BNVA) | payer MEDICARE, MEDICAID, SELFPAY | PROVIDERS: Visit Provider Nurse Practitioner | DX: F31.5 Bipolar disorder, current episode depressed, severe, with psychotic features (principal); F43.12 Post-traumatic stress disorder, chronic | CPT/HCPCS: 99214 ==

== ENCOUNTER → 2021-10-08 10:08 | Outpatient (BNVA) | payer MEDICARE, MEDICAID, SELFPAY | PROVIDERS: Visit Provider Nurse Practitioner | DX: F31.5 Bipolar disorder, current episode depressed, severe, with psychotic features (principal); F43.12 Post-traumatic stress disorder, chronic | CPT/HCPCS: 99214 ==

== ENCOUNTER 2021-10-13 09:17 | Outpatient (CLI) | payer MEDICARE, MEDICAID, SELFPAY ==
[2021-10-13 10:12] LABS: Estmated Average Glucose 220; Hemoglobin A1C 9.3 % (4.0-6.0)
[2021-10-13 10:16] LABS: Calcium 9.2 mg/dL (8.5-10.5)
[2021-10-13 10:22] LABS: Parathyroid Hormone 54.6 pg/mL (15-65)
== END 2021-10-13 09:18 | disposition home or self-care (01) ==
LOC: LAB 09:19
PROVIDERS: Visit Provider Internal Medicine
DX: E11.22 Type 2 diabetes mellitus with diabetic chronic kidney disease (principal); E11.65 Type 2 diabetes mellitus with hyperglycemia; E21.3 Hyperparathyroidism, unspecified; N18.2 Chronic kidney disease, stage 2 (mild); N20.0 Calculus of kidney; Z79.899 Other long term (current) drug therapy; Z87.891 Personal history of nicotine dependence; Z79.84 Long term (current) use of oral hypoglycemic drugs
CPT/HCPCS: 36415; 82310; 83036; 83970; 99204

== ENCOUNTER → 2021-12-11 07:34 | Outpatient (BNVA) | payer MEDICARE, MEDICAID, SELFPAY | PROVIDERS: Visit Provider Nurse Practitioner | DX: F43.12 Post-traumatic stress disorder, chronic (principal); F31.5 Bipolar disorder, current episode depressed, severe, with psychotic features; Z79.899 Other long term (current) drug therapy | CPT/HCPCS: 99214 ==

== ENCOUNTER → 2021-12-31 09:58 | Outpatient (BNVA) | payer MEDICARE, MEDICAID, SELFPAY | PROVIDERS: Visit Provider Internal Medicine | DX: E11.65 Type 2 diabetes mellitus with hyperglycemia (principal); E11.22 Type 2 diabetes mellitus with diabetic chronic kidney disease; N18.2 Chronic kidney disease, stage 2 (mild); E78.2 Mixed hyperlipidemia; Z79.899 Other long term (current) drug therapy; Z87.891 Personal history of nicotine dependence | CPT/HCPCS: 80053; 80061; 82044; 83036; 99214 ==

== ENCOUNTER 2021-12-31 11:34 | Outpatient (CLI) | payer MEDICARE, MEDICAID, SELFPAY ==
[2021-12-31 12:24] LABS: Creatinine Urine, Random 161 mg/dL (28-217); Microalbum Creatinine Ratio Ur 12 mg/dL (0-20); Microalbumin Random Urine 2 ug/dL (0-20)
[2021-12-31 12:26] LABS: Alanine Aminotransferase 28 U/L (0-33); Albumin Level 4.2 g/dL (3.5-5.2); Alkaline Phosphatase 216 IU/L (35-105); Anion Gap 15.7 (5-19); Aspartate Amino Transferase 28 U/L (0-32); Blood Urea Nitrogen 11 mg/dL (6-20); Calcium 9.7 mg/dL (8.5-10.5); Carbon Dioxide 26 mmol/L (22-29); Chloride 103 mmol/L (98-107); Chol HDL Ratio 4.55 mg/dL (0.0-4.40); Cholesterol 173 mg/dL (0-200); Globulin 3.6 g/dL (1.3-4.6); Glomerular Filtration Rate 59.4 mL/min (90-130); Glucose 123 mg/dL (65-115); HDL Cholesterol 38 mg/dL (60-100); LDL Cholesterol Calculated 97 mg/dL (50-129); LDL HDL Ratio 2.55 RATIO (0.00-3.22); Osmolality Calculated 295 mOsm/kg (285-295); Sodium 142 mmol/L (136-145); Total Bilirubin 0.6 mg/dL (0.15-1.2); Total Protein 7.8 g/dL (6.6-8.7); Triglycerides 190 mg/dL (0-150)
[2021-12-31 12:29] LABS: Estmated Average Glucose 189; Hemoglobin A1C 8.2 % (4.0-6.0); Potassium 2.7 mmol/L (3.5-5.1)
== END 2021-12-31 11:35 | disposition home or self-care (01) ==
LOC: LAB 11:37
PROVIDERS: PCP Family Medicine; Visit Provider Internal Medicine
DX: E11.22 Type 2 diabetes mellitus with diabetic chronic kidney disease (principal); E11.65 Type 2 diabetes mellitus with hyperglycemia; E78.2 Mixed hyperlipidemia; N18.2 Chronic kidney disease, stage 2 (mild); Z79.899 Other long term (current) drug therapy
CPT/HCPCS: 80053; 80061; 82044; 83036

== ENCOUNTER 2021-12-31 13:57 | Emergency (ER) | payer MEDICARE, MEDICAID, SELFPAY ==
[2021-12-31 14:30] VITALS: BP 112/79; PULSE 87; RESP 18; TEMP 36.2; O2SAT 96; BMI 31.1
--- NOTE | 2021-12-31 14:43 | ECG_ITS ---
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 Measurements Intervals [place] Rate: 90 P: 53 DC: 171 QRS: 115 QRSD: 98 T: 26 QT: 383 QTc: 470 Interpretive Statements SINUS RHYTHM Compared to ECG 09/14/2019 16:19:22 No significant changes Electronically Signed On 01-01-2022 5:56:06 INSTRUMENTATION SUPERVISOR by Vickie Mercado M.D. [id number]
[2021-12-31] MEDS: potassium chloride ER 20 mEq Tablet 60 MEQ PO (16:12)
--- NOTE | 2021-12-31 16:20 | ED_ITS ---
Documented by User: JENNIFER Ellis 12/31/21 16:22 HPI - General Adult General: Chief complaint: Abdominal Pain Stated complaint: ABD Pain, Dr sent for low potassium Time Seen by Provider: 12/31/21 16:07 History of Present Illness: Patient seen Dr. Almeida's office and found to have a low potassium sent over here for potassium patient been sick for last couple days with nausea vomiting diarrhea. That has improved. Patient does not presently have abdominal discomfort. Is slightly nauseated. Associated symptoms: Reports nausea; Deny chest pain, dyspnea, headache(s), rash or vomiting Review of Systems Narrative: Sent to the ER for potassiumreplacement Const: Denies: fever(s), chills or body aches Eyes: Denies: eye discomfort ENMT: Denies: throat pain Card: Denies: chest pain Resp: Denies: dyspnea GI: Reports: nausea and diarrhea; Denies: abdominal pain or vomiting Skin/Breast: Denies: rash Neuro: Denies: headache(s) Psych: Denies: depression or suicidal ideation PFSH ED PFSH: Medical History Bilateral renal stones Bipolar disorder, current episode depressed, severe, with psychotic features Calculus of left ureter Cystitis cystica DDD (degenerative disc disease) Depression Essential (primary) hypertension GERD (gastroesophageal reflux disease) Hepatic granuloma associated with sarcoidosis High risk medication use Hyperparathyroidism, unspecified Hypoglobulinemia Hypokalemia Immunization counseling Kidney stone Left breast mass Osteopenia Osteoporosis Other specified disorders involving the immune mechanism, not elsewhere classified Personal history of other (healed) physical injury and trauma Post-traumatic stress disorder, chronic Psychiatric care Retained ureteral stent Sarcoidosis Surgical History H/O bilateral mastectomy History of appendectomy History of cholecystectomy History of hysterectomy Hx of hammer toe correction Right foot-Dr. Godfrey Family History Other Cancer Diabetes Hypertension Psychiatric illness Rheumatoid arthritis Stroke Denies family history of CAD (coronary artery disease) Systemic lupus erythematosus (SLE) in adult Social History Smoking and tobacco status: former smoker Quit status (tobacco): has quit using tobacco Year quit tobacco: 10/25 PPD x 3 Years Second hand smoke exposure: Yes Alcohol intake: never Lives independently: Yes Household members: spouse Marital status: Current occupational status: disabled History of recent travel: No Current gender identity: Female Physical Exam Narrative: EXAM NARRATIVE: Patient does not appear in acute distress vital signs are stable. Const: COMMON NORMALS: no acute distress, patient oriented x3 and alert HENMT: COMMON NORMALS: normocephalic and external ears normal HEAD & SCALP: normocephalic EXTERNAL EAR: Yes external ears normal Eye: COMMON NORMALS: EOMs intact bilaterally Neck/C-Spine: COMMON NORMALS: no JVD Resp: COMMON NORMALS: normal respiratory effort and No use of accessory muscles Cardio: COMMON NORMALS: no JVD GI: INSPECTION: Yes normal to inspection Extremity: COMMON NORMALS: normal to inspection and full ROM Neuro: COMMON NORMALS: patient oriented x3 SENSORIUM/ORIENTATION: Yes alert Psych: COMMON NORMALS: mental status grossly normal Skin: COMMON NORMALS: no rashes or lesions noted GENERAL SKIN EXAM: no rashes or lesions noted Course Vital Signs: Vital signs: Vital Signs Temperature 97.2 F L 12/31/21 14:30 Pulse Rate 87 12/31/21 14:30 Respiratory Rate 18 12/31/21 14:30 Blood Pressure 112/79 12/31/21 14:30 Pulse Oximetry 96 12/31/21 14:30 [facility] - General Adult Medical Decision Making Hypokalemia and gastroenteritis. Patient no acute distress vital signs are stable. Patient was provided p.o. potassium given a prescription asked follow- up Dr. Harrison first next week for recheck potassium. Can take [id number] Imodium if any diarrhea is comes back. Discharge Plan Discharge Patient Disposition: Home Clinical Impression: Hypokalemia, Gastroenteritis Condition: Stable Prescriptions: New K-Tab 20 mEq tablet extended release 20 meq PO DAILY Qty: 20 0RF Zofran 4 mg tablet 4 mg PO Q8H 3 Days Qty: 9 0RF No Action clonazepam 0.5 mg tablet 0.5 mg PO BID PRN (Reason: amxiety) Qty: 60 1RF venlafaxine [Effexor XR] 75 mg capsule,extended release 24hr 75 mg PO DAILY Qty: 30 2RF venlafaxine [Effexor XR] 150 mg capsule,extended release 24hr 150 mg PO QAM Qty: 30 2RF Ambien 10 mg tablet 10 mg PO BEDTIME Qty: 30 2RF Ozempic 0.25 mg or 0.5 mg(2 mg/1.5 mL) pen injector See Rx Instructions SUBCUT .COMPLEX Qty: 6 3RF Rx Instructions: Ozempic 0.25 weekly for 1 month and then 0.5 weekly and continue SUBCUT; cholecalciferol (vitamin D3) 25 mcg (1,000 unit) capsule 25 mcg PO DAILY 0RF atorvastatin 40 mg tablet 40 mg PO DAILY Qty: 90 3RF Rx Instructions: Take one tablet by mouth daily. (DME) blood-glucose meter [OneTouch Ultra2 Meter] Misc See Rx Instructions .Route Qty: 1 0RF Rx Instructions: Check BS daily. (DME) OneTouch Ultra Test Strip See Rx Instructions .Route Qty: 100 3RF Rx Instructions: As directed Farxiga 5 mg tablet 10 mg PO QAM Qty: 180 3RF Rx Instructions: Take two tablets by mouth daily. Discharge Orders: Discharge ED (Routine); Ordered 12/31/21 Ordered By: Crow Calixto Referrals: Christi Jack MD [Primary Care Provider] - Discharge Diet: Advance as tolerated Discharge Activity: Resume usual activity Patient Instructions: Hypokalemia (ED), Gastroenteritis (ED) Activity Restrictions/Additional Instructions: Follow-up with medical provider as directed. Take medications as prescribed. Return to the ER or your medical provider if condition worsens. Please read and understand discharge instructions. If any questions ask please. Follow-up Dr. Harrison next week to get potassium rechecked. Coding Level of Care Code ED Plant Guard for Chg Fwd Exam Comprehensive Documented by User: José Miguel Dejesus DO 01/01/22 06:17 HPI - General Adult General: Chief complaint: Abdominal Pain Stated complaint: ABD Pain, Dr sent for low potassium Time Seen by Provider: 12/31/21 16:07 PFSH ED PFSH: Medical History Bilateral renal stones Bipolar disorder, current episode depressed, severe, with psychotic features Calculus of left ureter Cystitis cystica DDD (degenerative disc disease) Depression Essential (primary) hypertension GERD (gastroesophageal reflux disease) Hepatic granuloma associated with sarcoidosis High risk medication use Hyperparathyroidism, unspecified Hypoglobulinemia Hypokalemia Immunization counseling Kidney stone Left breast mass Osteopenia Osteoporosis Other specified disorders involving the immune mechanism, not elsewhere classified Personal history of other (healed) physical injury and trauma Post-traumatic stress disorder, chronic Psychiatric care Retained ureteral stent Sarcoidosis Surgical History H/O bilateral mastectomy History of appendectomy History of cholecystectomy History of hysterectomy Hx of hammer toe correction Right foot-Dr. Godfrey Family History Other Cancer Diabetes Hypertension Psychiatric illness Rheumatoid arthritis Stroke Denies family history of CAD (coronary artery disease) Systemic lupus erythematosus (SLE) in adult Social History Smoking and tobacco status: former smoker Quit status (tobacco): has quit using tobacco Year quit tobacco: 1994 - 10/25 PPD x 3 Years Second hand smoke exposure: Yes Alcohol intake: never Lives independently: Yes Household members: spouse Marital status: Current occupational status: disabled History of recent travel: No Current gender identity: Female Course Vital Signs: Vital signs: Vital Signs Temperature 97.2 F L 12/31/21 14:30 Pulse Rate 87 12/31/21 14:30 Respiratory Rate 18 12/31/21 14:30 Blood Pressure 112/79 12/31/21 14:30 Pulse Oximetry 96 12/31/21 14:30 [facility] - General Adult Medical Decision Making Hypokalemia and gastroenteritis. Patient no acute distress vital signs are stable. Patient was provided p.o. potassium given a prescription asked follow- up Dr. Harrison first next week for recheck potassium. Can take [id number] Imodium if any diarrhea is comes back. Chart reviewed and patient discussed with midlevel. Agree with assessment and plan. Medical Records I reviewed the patient's medical records. Lab Data I reviewed the patient's lab results. Discharge Plan Discharge Patient Disposition: Home Clinical Impression: Hypokalemia, Gastroenteritis Condition: Stable Prescriptions: New K-Tab 20 mEq tablet extended release 20 meq PO DAILY Qty: 20 0RF Zofran 4 mg tablet 4 mg PO Q8H 3 Days Qty: 9 0RF No Action clonazepam 0.5 mg tablet 0.5 mg PO BID PRN (Reason: amxiety) Qty: 60 1RF venlafaxine [Effexor XR] 75 mg capsule,extended release 24hr 75 mg PO DAILY Qty: 30 2RF venlafaxine [Effexor XR] 150 mg capsule,extended release 24hr 150 mg PO QAM Qty: 30 2RF Ambien 10 mg tablet 10 mg PO BEDTIME Qty: 30 2RF Ozempic 0.25 mg or 0.5 mg(2 mg/1.5 mL) pen injector See Rx Instructions SUBCUT .COMPLEX Qty: 6 3RF Rx Instructions: Ozempic 0.25 weekly for 1 month and then 0.5 weekly and continue SUBCUT; cholecalciferol (vitamin D3) 25 mcg (1,000 unit) capsule 25 mcg PO DAILY 0RF atorvastatin 40 mg tablet 40 mg PO DAILY Qty: 90 3RF Rx Instructions: Take one tablet by mouth daily. (DME) blood-glucose meter [OneTouch Ultra2 Meter] Misc See Rx Instructions .Route Qty: 1 0RF Rx Instructions: Check BS daily. (DME) OneTouch Ultra Test Strip See Rx Instructions .Route Qty: 100 3RF Rx Instructions: As directed Farxiga 5 mg tablet 10 mg PO QAM Qty: 180 3RF Rx Instructions: Take two tablets by mouth daily. Discharge Orders: Discharge ED (Routine); Ordered 12/31/21 Ordered By: Crow Calixto Referrals: Christi Jack MD [Primary Care Provider] - Discharge Diet: Advance as tolerated Discharge Activity: Resume usual activity Patient Instructions: Hypokalemia (ED), Gastroenteritis (ED) Activity Restrictions/Additional Instructions: Follow-up with medical provider as directed. Take medications as prescribed. Return to the ER or your medical provider if condition worsens. Please read and understand discharge instructions. If any questions ask please. Follow-up Dr. Harrison next week to get potassium rechecked. Coding Level of Care Code ED Plant Guard for Chg Fwd Exam Comprehensive
== END 2021-12-31 16:34 | disposition home or self-care (01) ==
PROVIDERS: Emergency Provider Nurse Practitioner Family; PCP Family Medicine
DX: K52.9 Noninfective gastroenteritis and colitis, unspecified (principal); E87.6 Hypokalemia; Z87.891 Personal history of nicotine dependence; I10 Essential (primary) hypertension
CPT/HCPCS: 93005; 99283

== ENCOUNTER → 2022-01-08 07:38 | Outpatient (BNVA) | payer MEDICARE, MEDICAID, SELFPAY | PROVIDERS: PCP Family Medicine; Visit Provider Nurse Practitioner | DX: F43.12 Post-traumatic stress disorder, chronic (principal); F31.5 Bipolar disorder, current episode depressed, severe, with psychotic features; Z79.899 Other long term (current) drug therapy | CPT/HCPCS: 99214 ==

== ENCOUNTER → 2022-02-05 07:19 | Outpatient (BNVA) | payer MEDICARE, MEDICAID, SELFPAY | PROVIDERS: PCP Family Medicine; Visit Provider Nurse Practitioner | DX: F43.12 Post-traumatic stress disorder, chronic (principal); F31.5 Bipolar disorder, current episode depressed, severe, with psychotic features; Z79.899 Other long term (current) drug therapy | CPT/HCPCS: 99214 ==

== ENCOUNTER → 2022-04-13 10:52 | Outpatient (BNVA) | payer MEDICARE, MEDICAID, SELFPAY | PROVIDERS: PCP Family Medicine; Visit Provider Nurse Practitioner | DX: F43.12 Post-traumatic stress disorder, chronic (principal); F31.5 Bipolar disorder, current episode depressed, severe, with psychotic features; Z79.899 Other long term (current) drug therapy | CPT/HCPCS: 99214 ==

== ENCOUNTER → 2022-04-21 13:51 | Outpatient (BNVA) | payer MEDICARE, MEDICAID, SELFPAY | PROVIDERS: PCP Family Medicine; Visit Provider Internal Medicine | DX: E11.65 Type 2 diabetes mellitus with hyperglycemia (principal); E11.22 Type 2 diabetes mellitus with diabetic chronic kidney disease; N18.2 Chronic kidney disease, stage 2 (mild); E78.2 Mixed hyperlipidemia; N20.0 Calculus of kidney; E21.3 Hyperparathyroidism, unspecified; Z79.899 Other long term (current) drug therapy; Z87.891 Personal history of nicotine dependence; Z79.84 Long term (current) use of oral hypoglycemic drugs | CPT/HCPCS: 99214 ==

== ENCOUNTER 2022-05-03 09:45 | Outpatient (CLI) | payer MEDICARE, MEDICAID, SELFPAY ==
--- NOTE | 2022-05-03 09:58 | XRR_ITS ---
PROCEDURE INFORMATION: Exam: XR Right Hip Exam date and time: 05/03/2022 10:02 AM Age: 46 years old Clinical indication: Pain and injury or trauma; Fall; Blunt trauma (contusions or hematomas); Hip pain; Right hip; Prior surgery; Surgery type: RT femur; Additional info: R hip joint pain TECHNIQUE: Imaging protocol: Radiologic exam of the Right hip. Views: 1 view hip with pelvis when performed. COMPARISON: CT abdomen pelvis w con* [id number] 03/19/2021 12:32 PM FINDINGS: Bones/joints: There are small calcifications above the greater trochanter which are probably from old trauma. No recent fracture, dislocation or other acute abnormality. There are no significant degenerative changes. There is cortical thickening of the shaft of the femur which is probably from old trauma. Soft tissues: Unremarkable. XR/XR hip RT 2-3V wo/w pel* [id number] IMPRESSION: No acute abnormality.
== END 2022-05-03 09:46 | disposition home or self-care (01) ==
LOC: RAD 09:49
PROVIDERS: PCP Family Medicine; Visit Provider Family Medicine
DX: M25.551 Pain in right hip (principal); M79.671 Pain in right foot; M79.672 Pain in left foot; G57.63 Lesion of plantar nerve, bilateral lower limbs
CPT/HCPCS: 73502; 99214

== ENCOUNTER 2022-07-12 13:46 | Outpatient (CLI) | payer MEDICARE, MEDICAID, SELFPAY ==
[2022-07-12 15:06] LABS: Estmated Average Glucose 108; Hemoglobin A1C 5.4 % (4.0-6.0)
[2022-07-12 15:12] LABS: Alanine Aminotransferase 20 U/L (0-33); Albumin Level 3.8 g/dL (3.5-5.2); Alkaline Phosphatase 194 U/L (35-105); Anion Gap 13.5 (5-19); Aspartate Amino Transferase 25 U/L (0-32); Blood Urea Nitrogen 12 mg/dL (6-20); Calcium 9.8 mg/dL (8.5-10.5); Carbon Dioxide 26 mmol/L (22-29); Chloride 105 mmol/L (98-107); Chol HDL Ratio 2.76 mg/dL (0.0-4.40); Cholesterol 124 mg/dL (0-200); Globulin 3.9 g/dL (1.3-4.6); Glomerular Filtration Rate 66.8 mL/min (90-130); Glucose 84 mg/dL (65-115); HDL Cholesterol 45 mg/dL (60-100); LDL Cholesterol Calculated 57 mg/dL (50-129); LDL HDL Ratio 1.27 RATIO (0.00-3.22); Osmolality Calculated 291 mOsm/kg (285-295); Potassium 3.5 mmol/L (3.5-5.1); Sodium 141 mmol/L (136-145); Total Bilirubin 0.5 mg/dL (0.15-1.2); Total Protein 7.7 g/dL (6.6-8.7); Triglycerides 111 mg/dL (0-150)
[2022-07-12 15:22] LABS: Creatinine Urine, Random 269 mg/dL (28-217); Microalbum Creatinine Ratio Ur 7 mg/dL (0-20); Microalbumin Random Urine 2 ug/dL (0-20)
== END 2022-07-12 13:47 | disposition home or self-care (01) ==
PROVIDERS: PCP Family Medicine; Visit Provider Internal Medicine
DX: E11.22 Type 2 diabetes mellitus with diabetic chronic kidney disease (principal); E11.65 Type 2 diabetes mellitus with hyperglycemia; E21.3 Hyperparathyroidism, unspecified; E78.2 Mixed hyperlipidemia; N18.2 Chronic kidney disease, stage 2 (mild); N20.0 Calculus of kidney; Z79.899 Other long term (current) drug therapy; G57.63 Lesion of plantar nerve, bilateral lower limbs; M77.51 Other enthesopathy of right foot and ankle
CPT/HCPCS: 80053; 80061; 82044; 83036; 99214

== ENCOUNTER → 2022-07-20 09:10 | Outpatient (BNVA) | payer MEDICARE, MEDICAID, SELFPAY | PROVIDERS: PCP Family Medicine; Visit Provider Internal Medicine | DX: E11.65 Type 2 diabetes mellitus with hyperglycemia (principal); E11.22 Type 2 diabetes mellitus with diabetic chronic kidney disease; N18.2 Chronic kidney disease, stage 2 (mild); E78.2 Mixed hyperlipidemia; Z79.899 Other long term (current) drug therapy | CPT/HCPCS: 99214 ==

== ENCOUNTER → 2022-08-03 13:43 | Outpatient (BNVA) | payer MEDICARE, MEDICAID, SELFPAY | PROVIDERS: PCP Family Medicine; Visit Provider Podiatrist Foot & Ankle Surgery | DX: G57.63 Lesion of plantar nerve, bilateral lower limbs (principal); M77.51 Other enthesopathy of right foot and ankle | CPT/HCPCS: 99213; 99214 ==

== ENCOUNTER 2022-09-15 08:15 | Outpatient (CLI) | payer MEDICARE, MEDICAID, SELFPAY ==
--- NOTE | 2022-09-15 08:45 | MR_ITS ---
WS: [id number] MRI OF THE RIGHT FOOT WITHOUT GADOLINIUM ENHANCEMENT. INDICATION: Pain toes of RIGHT foot for 6 months. TECHNIQUE: Axial T1, axial T2, coronal PD, coronal T2 fat sat, sagittal T1, sagittal STIR imaging. FINDINGS: Single fixation screw proximal phalanx 3rd toe with susceptibility artifact. Distal [place] s is normal in appearance. Small amount of fluid along the peroneus longus. Normal peroneus brevis. S mall amount of fluid compatible with tenosynovitis along the flexor compartment tendons involving the tibialis posterior, Flexor digitorum longus, and flexor hallucis longus. Small amount of edema involving the 5th metatarsal head and 5th MTP joint nonspecific but may be infl ammatory. Normal bone marrow signal in the calcaneus and talus. Normal talar calcaneal articulation. Normal cub oid. Base of 5th metatarsal appears normal. Normal cuneiforms. Normal bone marrow signal in the metat arsals. Proximal phalanges appear normal. Normal talar dome. Normal medial and lateral malleolus. Nor mal plantar fascia MR/MR foot RT wo con* [id number] IMPRESSION: 1. Distal Achilles is normal in appearance. Normal plantar aponeurosis. 2. Small amount of edema involving the 5th metatarsal head and 5th MTP joint n onspecific but may be inflammatory. 3. Normal bone marrow signal. No visualized fractures. 4. Small amount tenosynovitis along the peroneal longus. 5. Tenosynovitis along the flexor compartment tendons described above. 6. Distal Achilles is normal in appearance. 7. No other remarkable findings.
== END 2022-09-15 08:16 | disposition home or self-care (01) ==
LOC: RAD 08:16
PROVIDERS: PCP Family Medicine; Visit Provider Podiatrist Foot & Ankle Surgery
DX: G57.61 Lesion of plantar nerve, right lower limb (principal); M65.871 Other synovitis and tenosynovitis, right ankle and foot
CPT/HCPCS: 73718

== ENCOUNTER → 2022-09-28 15:16 | Outpatient (BNVA) | payer MEDICARE, MEDICAID, SELFPAY | PROVIDERS: PCP Family Medicine; Visit Provider Podiatrist Foot & Ankle Surgery | DX: G57.63 Lesion of plantar nerve, bilateral lower limbs (principal); M77.51 Other enthesopathy of right foot and ankle; M21.621 Bunionette of right foot | CPT/HCPCS: 99214 ==

== ENCOUNTER 2022-10-29 08:14 | Day surgery (SDC) | payer MEDICARE, MEDICAID, SELFPAY ==
[2022-10-28 17:12] VITALS: BMI 24.8
--- NOTE | 2022-10-29 | XR_ITS ---
WS: [id number] Right foot, C-arm fluoroscopy, 10/29/2022 Clinical Data: right buniectomy Comparison: Right foot, 10/20/2020 Findings: There is an osteotomy of the distal right first metatarsal with insertion of an oblique screw in the osteotomy site. XR/XR foot RT 2V [id number] Impression: Osteotomy of distal right first metatarsal.
[2022-10-29 08:41] LABS: Glucose Point of Care 86 mg/dL (70-110)
[2022-10-29] MEDS: gabapentin 300 mg Capsule PO (08:44)
[2022-10-29] MEDS: CELEcoxib 200 mg Capsule 400 MG PO (08:44)
[2022-10-29] MEDS: sodium chloride 0.9% 1,000 ML 30 ML IV (08:45)
--- NOTE | 2022-10-29 10:00 | ANES.PREANE2 ---
Pre-Anesthetic Assessment Height/Weight: Height 1.57 m Weight 61.689 kg O2 Del Method 10/29/22 08:29 Preop Diagnosis: Right abel's bunion Operation Date: 10/29/22 10:10 Proposed Procedures p Bunionectomy Mame ZULETA [id number]/M21.621(Right) - Errol Godfrey DPM Familial anesthetic complications: none Was Beta Kezia taken within 24 hours: N/A Was Clonidine taken within 24 hours: N/A Last intake: Intake Last Liquid Date 10/28/22 Last Liquid Time 22:00 Last Solid Date 10/28/22 Last Solid Time 19:30 Social No alcohol and No tobacco Exam alert, oriented x 3, clear to auscultation bilaterally and regular rate & rhythm Airway Submandibular: within normal limits Cervical ROM: within normal limits Mallampati: Class II Dentition: chipped Comments: Comments: Poor dentition Pulmonary Asthma Metabolic Diabetes Mellitus and Hyperlipidemia Neuropsych Bipolar Anesthetic Plan ASA status: 2 Anesthesia: MAC Medications/Allergies Home Medications Medication Instructions Recorded Confirmed Last Taken Type blood-glucose meter ([employer] Bi[employer]Touch #1 ea 10/22/21 10/08/22 Unknown Rx Ultra2 Meter) cholecalciferol (vitamin D3) 25 25 mcg PO DAILY 04/13/22 10/28/22 Unknown History mcg (1,000 unit) capsule blood sugar diagnostic (OneTouch #100 ea 07/13/22 10/08/22 Unknown Rx Ultra Test strips) semaglutide 2 mg/dose (8 mg/3 mL) See Rx Instructions .Route 08/09/22 10/29/22 10/23/22 Rx subcutaneous pen injector (Ozempic) .COMPLEX #3 mL dapagliflozin 10 mg tablet 10 mg PO DAILY #30 tabs 09/14/22 10/29/22 10/28/22 Rx (Farxiga) clonazepam 0.5 mg tablet 0.5 mg PO BID PRN amxiety #60 tabs 09/29/22 10/28/22 Unknown Rx venlafaxine 75 mg capsule,extended 75 mg PO DAILY #30 caps 09/29/22 10/29/22 10/28/22 Rx release 24 hr (Effexor XR) zolpidem 10 mg tablet (Ambien) 10 mg PO BEDTIME #30 tabs 09/29/22 10/29/22 10/28/22 Rx atorvastatin 40 mg tablet 40 mg PO DAILY 10/29/22 10/29/22 10/28/22 History Allergies Allergy/AdvReac Type Severity Reaction Status Date / Time benzoin Allergy Mild rash Verified 10/28/22 17:08 chlorhexidine Allergy ALGY-Rash Verified 10/28/22 17:08 Current Medications Generic Name Dose Route Start Last Admin Trade Name Jeannie PRN Reason Stop Dose Admin Sodium Chloride 1,000 mls @ 30 mls/hr 10/29/22 08:30 10/29/22 08:45 Sodium Chloride 0.9% IV 10/30/22 08:29 30 mls/hr .Q24H KATY Administration PFSH Anesthesia Medical History Bilateral renal stones Bipolar disorder, current episode depressed, severe, with psychotic features Calculus of left ureter Cystitis cystica DDD (degenerative disc disease) Depression Essential (primary) hypertension GERD (gastroesophageal reflux disease) Hepatic granuloma associated with sarcoidosis High risk medication use Hyperparathyroidism, unspecified Hypoglobulinemia Hypokalemia Immunization counseling Kidney stone Left breast mass Osteopenia Osteoporosis Other specified disorders involving the immune mechanism, not elsewhere classified Personal history of other (healed) physical injury and trauma Post-traumatic stress disorder, chronic Psychiatric care Retained ureteral stent Sarcoidosis Surgical History H/O bilateral mastectomy History of appendectomy History of cholecystectomy History of hysterectomy Hx of hammer toe correction Right foot-Dr. Godfrey Family History Other Cancer Diabetes Hypertension Psychiatric illness Rheumatoid arthritis Stroke Denies family history of CAD (coronary artery disease) Systemic lupus erythematosus (SLE) in adult Social History Smoking and tobacco status: former smoker Quit status (tobacco): has quit using tobacco Year quit tobacco: 1994 - 10/25 PPD x 3 Years Second hand smoke exposure: Yes Alcohol intake: never Lives independently: Yes Household members: spouse Marital status: Current occupational status: disabled History of recent travel: No Current gender identity: Female Data Anesthesia Cardiac Studies: Stress Echocardiogram 07/16/20
--- NOTE | 2022-10-29 10:39 | W.PM.OPSUD ---
Surgery/Procedure H&P Update DATE OF PROCEDURE: October 29, 2022 DATE H&P PERFORMED: 09/28/22 CHANGES TO PREVIOUS DOCUMENTATION: None PREOP DIAGNOSIS: Right abel's patricia PLANNED PROCEDURE: Operation Date: 10/29/22 10:10 Proposed Procedures p Bunionectomy Mame [facility] [id number]/M21.621(Right) - Errol Godfrey DPM
[2022-10-29] MEDS: ceFAZolin 2,000 MG in sodium chloride 0.9% (plus) 50 ML 100 MG IV (10:56)
[2022-10-29 11:44] VITALS: BP 138/93; PULSE 50; RESP 14; TEMP 36.6; O2SAT 100
[2022-10-29 11:45] VITALS: BP 151/110; PULSE 54; RESP 14; O2SAT 100
[2022-10-29 11:50] VITALS: BP 130/88; PULSE 60; RESP 15; O2SAT 96
[2022-10-29 11:54] VITALS: BP 138/91; PULSE 53; RESP 14; TEMP 36.6; O2SAT 98
[2022-10-29 11:58] VITALS: BP 147/92; PULSE 66; RESP 16; TEMP 36.6; O2SAT 96
[2022-10-29] MEDS: HYDROcodone-acetaminophen 10-325 mg Tablet 1 TAB PO (12:07)
[2022-10-29 12:13] VITALS: BP 150/90; PULSE 52; RESP 15; O2SAT 100
--- NOTE | 2022-10-29 14:06 | P.OP_ITS ---
Operative Report Date of procedure: October 29, 2022 Pre-op diagnosis: Preop Diagnosis Right tailor's bunion Post-op diagnosis: Same Procedure done: Right tailor's bunionectomy. CPT code 97212 Implants: Rogers ProStep small intramedullary implant with locking screw. 4-0 Vicryl, 4- 0 nylon Specimens removed/disposition: None Pathology: None Surgeon: Errol Godfrey D.P.M. Sap Technical Architect: Patience Estimated blood loss: 5 19 IV fluids: 0 Urine output: 0 Complications: None Brief History: Patient examined and evaluated, findings and treatment options were discussed with patient at length.? She has failed conservative treatments and has had a variety of right foot pain.? Her chief complaint is pain at her right tailor's bunion at today's visit.? She also received an MRI to the right foot and would like to review those results.? She has been wearing wider and accommodative shoes, she avoids going barefoot.? Has been taking anti-inflammatories and stret marcy daily without improvement.? Would like to discuss other options.? Discussed risks versus benefits of a tailor's bunionectomy to her right foot, she has bursitis to the right fifth metatarsal phalangeal joint and pain with her deformity.? I reviewed at length with the patient, the risks, potential complications, benefits, alternatives, expectations, and typical outcomes associated with the surgery. The risks and potential complications were explained in detail, including but not limited to infection, wound dehiscence or soft tissue complications, bleeding and hematoma, chronic edema, neuritis or nerve damage producing numbness or chronic pain, CRPS, failure to relieve pain or worsening pain, thick / painful / unsightly scar, limited motion / stiffness, malposition, delayed union, malunion, or nonunion, fracture, reaction to implants, anesthetic complications, venous thromboembolism, and deformity recurrence.? I discussed the notion of no regrets with the patient as it pertains to complications and outcomes. The patient seemed to understand the nature of the proposed care and required convalescence. They asked appropriate questions, answered to their satisfaction. They are aware no guarantees can be made as to a satisfactory outcome and they understand there may be other possible unforeseen complications or outcomes not listed here that will be treated accordingly if they arise. There were no written or implied guarantees given to the patient. They gave informed consent to proceed Procedure: Under mild sedation the patient was brought to the operating room and remained on the gurney in supine position. A timeout was performed. Anesthesia was then administered by the anesthesia service. Local anesthesia injected by myself consisting of 20 cc of 0.25% Marcaine plain in a right reverse Sandoval block fashion as well as 10 cc of Exparel diffusely in the subcu cutaneous grid like fashion both dorsally and plantarly at the right lateral forefoot. Well-padded pneumatic tourniquet was applied to the right ankle. The right lower extremity was scrubbed, prepped and draped utilizing normal aseptic technique. The right foot was then elevated and exanguinated with an Esmarch bandage and the tourniquet inflated to 250 mmHg. Attention was directed to the dorsal lateral aspect of the right fifth metatarsal phalangeal joint where a curvilinear incision was made through skin and with dissection carried down through subcutaneous tissue to the layer of joint capsule and periosteum utilizing a combination of sharp and blunt technique. Care was taken to retract and preserve neurovascular and tendinous structures. All bleeders were ligated and cauterized as necessary. The head of the fifth metatarsal was identified, the metaphyseal diaphyseal juncture was then identified of the fifth metatarsal and a transverse osteotomy was performed with a sagittal saw. The fifth metatarsal head was translated medially into a more anatomically corrected position and the osteotomy site was then temporarily fixated utilizing a guidewire and fixated utilizing a [employer] ProStep intramedullary implant with locking screw, size small. Excellent bony apposition and compression noted at the osteotomy site. Placement of hardware within the fifth metatarsal head is noted to be excellent and centralized both in the AP and lateral views. Anatomic reduction of the fifth metatarsal head tailor's bunion was appreciated. Smooth range of motion appreciated of the right fifth metatarsal phalangeal joint. All temporary fixation was removed, of the incision was irrigated with copious amounts of sterile skin solution. The incision was then closed in a layered fashion. Joint capsule and subcutaneous tissue closed with 4-0 Vicryl. Skin with 4-0 nylon. The incision was dressed with Adaptic, sterile 4 x 4, Kerlix and Rios wrap. Cam boot was then applied to the right foot. The right ankle tourniquet was then deflated and a prompt hyperemic response is noted to the distal digits of the right foot. Patient tolerated the procedure and anesthesia well and was transferred to the PACU with vital signs stable and vascular status intact. Following a period of postoperative monitoring she will be discharged home. May be weightbearing as tolerated, she was advised to elevate her right foot while resting. Was given at home care instructions as well as follow-up to be seen in clinic next week. She was also provided my cell phone number to contact me with any postoperative questions or concerns.
--- NOTE | 2022-10-29 14:43 | ANE.PACU2 ---
Inpatient post-anesthesia follow up: Airway intact: Yes Vital signs: Temperature 98 F Pulse Rate 66 Respiratory Rate 16 Blood Pressure 147/92 Pulse Oximetry 96 Oxygen Delivery Me thod Room Air Oxygen Flow Rate Fraction of Inspir ed Oxygen Hydration adequate: Yes Nausea and vomiting: No Pain level: 2 Mental status: Baseline
== END 2022-10-29 12:56 | disposition home or self-care (01) ==
PROVIDERS: PCP Family Medicine; Visit Provider Podiatrist Foot & Ankle Surgery
PROC: 0QBP0ZZ Excision of Left Metatarsal, Open Approach (ICD-10-PCS; CPT 28110; principal; 2022-10-29 10:00)
DX: M21.621 Bunionette of right foot (principal); E11.9 Type 2 diabetes mellitus without complications; E78.5 Hyperlipidemia, unspecified; F32.A Depression, unspecified; K21.9 Gastro-esophageal reflux disease without esophagitis; M81.0 Age-related osteoporosis without current pathological fracture; M19.90 Unspecified osteoarthritis, unspecified site; Z87.891 Personal history of nicotine dependence
CPT/HCPCS: 28308; 36416; 73620; 76000; 82962; C1713; C9290; J0690; J2250; J2704; J3010; J3490; J7030

== ENCOUNTER → 2022-11-11 14:07 | Outpatient (BNVA) | payer MEDICARE, MEDICAID, SELFPAY | PROVIDERS: PCP Family Medicine; Visit Provider Podiatrist Foot & Ankle Surgery | DX: Z98.890 Other specified postprocedural states (principal); G57.63 Lesion of plantar nerve, bilateral lower limbs; M77.51 Other enthesopathy of right foot and ankle; M21.621 Bunionette of right foot | CPT/HCPCS: 73630; 99024 ==

== ENCOUNTER → 2022-12-09 12:35 | Outpatient (BNVA) | payer MEDICARE, MEDICAID, SELFPAY | PROVIDERS: PCP Family Medicine; Visit Provider Podiatrist Foot & Ankle Surgery | DX: Z98.890 Other specified postprocedural states (principal); M21.621 Bunionette of right foot | CPT/HCPCS: 73630; 99024 ==

== ENCOUNTER → 2022-12-23 14:16 | Outpatient (BNVA) | payer MEDICARE, MEDICAID, SELFPAY | PROVIDERS: PCP Family Medicine; Visit Provider Podiatrist Foot & Ankle Surgery | DX: Z98.890 Other specified postprocedural states (principal); M21.621 Bunionette of right foot | CPT/HCPCS: 73630; 99024 ==

== ENCOUNTER 2023-02-03 09:51 | Outpatient (CLI) | payer MEDICARE, MEDICAID, SELFPAY ==
[2023-02-03 10:45] LABS: Estmated Average Glucose 97
[2023-02-03 10:55] LABS: Chol HDL Ratio 2.43 mg/dL (0.0-4.40); Cholesterol 129 mg/dL (0-200); HDL Cholesterol 53 mg/dL (60-100); LDL Cholesterol Calculated 59 mg/dL (50-129); LDL HDL Ratio 1.11 RATIO (0.00-3.22); Triglycerides 84 mg/dL (0-150)
== END 2023-02-03 09:52 | disposition home or self-care (01) ==
LOC: LAB 09:53
PROVIDERS: PCP Family Medicine; Visit Provider Internal Medicine
DX: E11.22 Type 2 diabetes mellitus with diabetic chronic kidney disease (principal); E11.65 Type 2 diabetes mellitus with hyperglycemia; N18.2 Chronic kidney disease, stage 2 (mild); Z79.899 Other long term (current) drug therapy
CPT/HCPCS: 36415; 80061; 83036

== ENCOUNTER → 2023-02-10 09:05 | Outpatient (BNVA) | payer MEDICARE, MEDICAID, SELFPAY | PROVIDERS: PCP Family Medicine; Visit Provider Internal Medicine | DX: E11.22 Type 2 diabetes mellitus with diabetic chronic kidney disease (principal); E11.65 Type 2 diabetes mellitus with hyperglycemia; N18.2 Chronic kidney disease, stage 2 (mild); E78.2 Mixed hyperlipidemia | CPT/HCPCS: 99214 ==

== ENCOUNTER 2023-05-11 09:49 | Outpatient (CLI) | payer MEDICARE, MEDICAID, SELFPAY ==
[2023-05-11 10:46] LABS: Alanine Aminotransferase 36 U/L (0-33); Alkaline Phosphatase 195 U/L (35-105); Aspartate Amino Transferase 39 U/L (0-32); Blood Urea Nitrogen 8 mg/dL (6-20); Calcium 9.2 mg/dL (8.5-10.5); Carbon Dioxide 27 mmol/L (22-29); Chloride 104 mmol/L (98-107); Chol HDL Ratio 2.51 mg/dL (0.0-4.40); Cholesterol 128 mg/dL (0-200); Globulin 2.4 g/dL (1.3-4.6); Glomerular Filtration Rate 66.8 mL/min (90-130); Glucose 74 mg/dL (65-115); HDL Cholesterol 51 mg/dL (60-100); LDL Cholesterol Calculated 51 mg/dL (50-129); Lipase 48 U/L (13-60); Osmolality Calculated 289 mOsm/kg (285-295); Sodium 141 mmol/L (136-145); Total Bilirubin 0.5 mg/dL (0.15-1.2); Total Protein 6.4 g/dL (6.6-8.7); Triglycerides 128 mg/dL (0-150)
[2023-05-11 10:51] LABS: Estmated Average Glucose 97
[2023-05-11 11:01] LABS: Creatinine Urine, Random 310 mg/dL (28-217); Microalbum Creatinine Ratio Ur 3 mg/dL (0-20); Microalbumin Random Urine 1 ug/dL (0-20)
== END 2023-05-11 09:50 | disposition home or self-care (01) ==
LOC: LAB 09:53
PROVIDERS: PCP Family Medicine; Visit Provider Internal Medicine
DX: E11.65 Type 2 diabetes mellitus with hyperglycemia (principal); E11.22 Type 2 diabetes mellitus with diabetic chronic kidney disease; E78.2 Mixed hyperlipidemia; N18.2 Chronic kidney disease, stage 2 (mild)
CPT/HCPCS: 36415; 80053; 80061; 82044; 83036; 83690

== ENCOUNTER → 2023-05-17 08:56 | Outpatient (BNVA) | payer MEDICARE, MEDICAID, SELFPAY | PROVIDERS: PCP Family Medicine; Visit Provider Internal Medicine | DX: E11.22 Type 2 diabetes mellitus with diabetic chronic kidney disease (principal); E11.65 Type 2 diabetes mellitus with hyperglycemia; N18.2 Chronic kidney disease, stage 2 (mild); E78.2 Mixed hyperlipidemia | CPT/HCPCS: 99214 ==

== ENCOUNTER 2023-08-11 14:18 | Outpatient (CLI) | payer MEDICARE, MEDICAID, SELFPAY ==
[2023-08-11 15:11] LABS: Estmated Average Glucose 91; Hemoglobin A1C 4.8 % (4.0-6.0)
[2023-08-11 15:15] LABS: Alanine Aminotransferase 23 U/L (0-33); Albumin Level 4.2 g/dL (3.5-5.2); Alkaline Phosphatase 195 U/L (35-105); Anion Gap 13.5 (5-19); Aspartate Amino Transferase 28 U/L (0-32); Blood Urea Nitrogen 16 mg/dL (6-20); Carbon Dioxide 28 mmol/L (22-29); Chloride 102 mmol/L (98-107); Chol HDL Ratio 4.13 mg/dL (0.0-4.40); Cholesterol 248 mg/dL (0-200); Globulin 3.2 g/dL (1.3-4.6); Glomerular Filtration Rate 76.2 mL/min (90-130); Glucose 84 mg/dL (65-115); HDL Cholesterol 60 mg/dL (60-100); LDL Cholesterol Calculated 152 mg/dL (50-129); LDL HDL Ratio 2.53 RATIO (0.00-3.22); Osmolality Calculated 290 mOsm/kg (285-295); Potassium 3.5 mmol/L (3.5-5.1); Sodium 140 mmol/L (136-145); Total Bilirubin 0.3 mg/dL (0.15-1.2); Total Protein 7.4 g/dL (6.6-8.7); Triglycerides 182 mg/dL (0-150)
[2023-08-11 15:29] LABS: Creatinine Urine, Random 69 mg/dL (28-217); Microalbum Creatinine Ratio Ur 14 mg/dL (0-20); Microalbumin Random Urine 1 ug/dL (0-20)
== END 2023-08-11 14:19 | disposition home or self-care (01) ==
PROVIDERS: PCP Family Medicine; Visit Provider Internal Medicine
DX: E11.22 Type 2 diabetes mellitus with diabetic chronic kidney disease (principal); E11.65 Type 2 diabetes mellitus with hyperglycemia; N18.2 Chronic kidney disease, stage 2 (mild)
CPT/HCPCS: 36415; 80053; 80061; 82044; 83036

== ENCOUNTER 2023-10-19 09:56 | Outpatient (CLI) | payer MEDICARE, MEDICAID, SELFPAY ==
[2023-10-19 10:57] LABS: Estmated Average Glucose 85; Hemoglobin A1C 4.6 % (4.0-6.0)
[2023-10-19 11:03] LABS: Alanine Aminotransferase 16 U/L (0-33); Albumin Level 4.4 g/dL (3.5-5.2); Alkaline Phosphatase 194 U/L (35-105); Anion Gap 13.5 (5-19); Aspartate Amino Transferase 26 U/L (0-32); Blood Urea Nitrogen 8 mg/dL (6-20); Calcium 9.7 mg/dL (8.5-10.5); Carbon Dioxide 28 mmol/L (22-29); Chloride 102 mmol/L (98-107); Cholesterol 268 mg/dL (0-200); Globulin 3.3 g/dL (1.3-4.6); Glomerular Filtration Rate 66.5 mL/min (90-130); Glucose 90 mg/dL (65-115); HDL Cholesterol 67 mg/dL (60-100); LDL Cholesterol Calculated 181 mg/dL (50-129); Osmolality Calculated 288 mOsm/kg (285-295); Potassium 3.5 mmol/L (3.5-5.1); Sodium 140 mmol/L (136-145); Total Bilirubin 0.4 mg/dL (0.15-1.2); Total Protein 7.7 g/dL (6.6-8.7); Triglycerides 98 mg/dL (0-150)
[2023-10-19 11:09] LABS: Creatinine Urine, Random 162 mg/dL (28-217); Microalbum Creatinine Ratio Ur 12 mg/dL (0-20); Microalbumin Random Urine 2 ug/dL (0-20)
== END 2023-10-19 09:57 | disposition home or self-care (01) ==
LOC: LAB 09:56
PROVIDERS: PCP Family Medicine; Visit Provider Internal Medicine
DX: E11.22 Type 2 diabetes mellitus with diabetic chronic kidney disease (principal); E11.65 Type 2 diabetes mellitus with hyperglycemia; N18.2 Chronic kidney disease, stage 2 (mild)
CPT/HCPCS: 36415; 80053; 80061; 82044; 83036

== ENCOUNTER → 2023-10-27 08:14 | Outpatient (BNVA) | payer MEDICARE, MEDICAID, SELFPAY | PROVIDERS: PCP Family Medicine; Visit Provider Internal Medicine | DX: E11.22 Type 2 diabetes mellitus with diabetic chronic kidney disease (principal); N18.2 Chronic kidney disease, stage 2 (mild); E11.65 Type 2 diabetes mellitus with hyperglycemia; I13.10 Hypertensive heart and chronic kidney disease without heart failure, with stage 1 through stage 4 chronic kidney disease, or unspecified chronic kidney disease; E78.2 Mixed hyperlipidemia; Z79.85 Long-term (current) use of injectable non-insulin antidiabetic drugs | CPT/HCPCS: 99214 ==

== ENCOUNTER 2023-11-30 15:10 | Emergency (ER) | payer MEDICARE, SELFPAY ==
[2023-11-30 15:13] VITALS: BP 183/111; PULSE 63; RESP 18; TEMP 36.6; O2SAT 99
--- NOTE | 2023-11-30 15:15 | XRR_ITS ---
PROCEDURE INFORMATION: Exam: XR Left Foot Exam date and time: 11/30/2023 4:11 PM Age: 48 years old Clinical indication: Pain; Foot and toes; Left TECHNIQUE: Imaging protocol: Radiologic exam of the left foot. Views: 3 or more views. COMPARISON: CR XR foot LT min 3V* [id number] 09/17/2019 3:47 PM FINDINGS: Bones/joints: Tiny left inferior calcaneal spur. Otherwise, unremarkable. Soft tissues: Normal. XR/XR foot LT min 3V* [id number] IMPRESSION: No acute findings.
--- NOTE | 2023-11-30 16:09 | W.ED.EXTPRO ---
HPI - Extremity Problem General: Chief complaint: Extremity Injury, Lower Stated complaint: left foot pain Time Seen by Provider: 11/30/23 16:09 History of Present Illness: 48-year-old female comes in today for complaints of injury to the left foot. Patient last evening cot her middle toe on the couch causing injury. Patient comes in today for evaluation due to pain. Review of Systems General: Reports: 10 or more systems reviewed and unremarkable except in HPI and below Musc: Reports: extremity pain (Left foot injury fifth toe) PFSH ED PFSH: Medical History Psychiatric care Bilateral renal stones Immunization counseling High risk medication use Bipolar disorder, current episode depressed, severe, with psychotic features Post-traumatic stress disorder, chronic Osteopenia Sarcoidosis Hypoglobulinemia Other specified disorders involving the immune mechanism, not elsewhere classified Osteoporosis Hypokalemia Left breast mass Calculus of left ureter Retained ureteral stent 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 Godfrey History of appendectomy History of cholecystectomy History of hysterectomy H/O bilateral mastectomy Family History Other Cancer Diabetes Hypertension Psychiatric illness Rheumatoid arthritis Stroke Denies family history of CAD (coronary artery disease) Systemic lupus erythematosus (SLE) in adult Social History Smoking and tobacco/nicotine status: former use of tobacco/nicotine Quit status (tobacco/nicotine): has quit using Year quit tobacco: 1994 - 10/25 PPD x 3 Years Second hand smoke exposure: Yes Alcohol intake: never Substance/Drug Use: never Lives independently: Yes Household members: spouse Marital status: Current occupational status: disabled Do you think of yourself as: Straight/Heterosexual Current gender identity: Female Physical Exam Const: COMMON NORMALS: alert HENMT: COMMON NORMALS: atraumatic HEAD & SCALP: atraumatic Neck/C-Spine: COMMON NORMALS: full ROM Resp: COMMON NORMALS: normal respiratory effort Cardio: COMMON NORMALS: regular rate RATE: regular rate Back/Pelvis: COMMON NORMALS: thoracic and lumbar spine normal to inspection Extremity: LEFT LOWER EXTREMITY: Yes foot & digits (Swelling and tenderness to the fifth toe) Neuro: SENSORIUM/ORIENTATION: Yes alert Skin: COMMON NORMALS: turgor normal GENERAL SKIN EXAM: turgor normal Course Vital Signs: Vital signs: Vital Signs Temperature 97.9 F 11/30/23 15:13 Pulse Rate 63 11/30/23 15:13 Respiratory Rate 18 11/30/23 15:13 Blood Pressure 183/111 11/30/23 15:13 Pulse Oximetry 99 11/30/23 15:13 Oxygen Delivery Me thod Room Air 11/30/23 15:13 MDM - Extremity (Nontraumatic) Medical Decision Making 48-year-old female comes in today for complaints of injury to the left toe fifth digit. Patient injured it last night. On exam patient has tenderness and swelling to the little toe. Cap refill is intact. Differential diagnosis includes fracture, contusion, sprain. X-ray noted no acute fracture recommend orthopedic shoe and elastic bandage for comfort and support. Patient reported understanding agreed to plan. XR interpretation done by ED provider, pending radiology final review Discharge Plan Discharge Patient Disposition: Home Clinical Impression: Sprain of toe, fifth, left Qualifiers: Encounter type: initial encounter Qualified Code(s): S93.505A - Unspecified sprain of left lesser toe(s), initial encounter Condition: Stable Prescriptions: No Action cholecalciferol (vitamin D3) 25 mcg (1,000 unit) capsule 25 mcg PO DAILY Patient Comments: Pt no longer taking this medication aripiprazole [Abilify] 2 mg tablet 2 mg PO DAILY Qty: 30 2RF Ambien 10 mg tablet 10 mg PO BEDTIME Qty: 30 2RF duloxetine [Cymbalta] 60 mg capsule,delayed release(DR/EC) 120 mg PO DAILY Qty: 60 2RF clonazepam 0.5 mg tablet 1 mg PO BID PRN (Reason: amxiety) Qty: 90 2RF Rx Instructions: 1-2 tablets up to twice daily as needed for severe anxiety Ozempic 2 mg/dose (8 mg/3 mL) pen injector 2 mg SUBCUT .weekly 90 Days Qty: 9 0RF Discharge Orders: Discharge ED (Routine); Ordered 11/30/23 Ordered By: Leoncio Young Referrals: Christi Jack MD [Primary Care Provider] - Discharge Diet: Usual diet Discharge Activity: Increase activity as tolerated Patient Instructions: Foot Sprain (ED) Activity Restrictions/Additional Instructions: Wear elastic bandage and orthopedic shoe for comfort and support. Activity as tolerated. Follow-up with primary care for further instructions. Coding Level of Care Code [employer] Consultant for Patience Contreras
== END 2023-11-30 16:48 | disposition home or self-care (01) ==
PROVIDERS: Emergency Provider Nurse Practitioner Family; PCP Family Medicine
DX: S93.505A Unspecified sprain of left lesser toe(s), initial encounter (principal); Z87.891 Personal history of nicotine dependence; I10 Essential (primary) hypertension; W22.03XA Walked into furniture, initial encounter
CPT/HCPCS: 73630; 99283

== ENCOUNTER 2023-12-23 09:32 | Outpatient (CLI) | payer MEDICARE, MEDICAID, SELFPAY ==
--- NOTE | 2023-12-23 09:57 | USCV_ITS ---
Bertha Bernie Age: 48 Gender: F : 1975 Exam Date: 12/23/2023 09:06 Ordering Phys: Christi Jack MD Technologist: CAYLA Exam Location: [facility] [place] Indication: LUE PAIN AND SWELLING [id number] HISTORY: Upper extremity swelling. Upper extremity pain. PROCEDURES: Venous duplex imaging was performed in only the left upper extremity. The following venous structures were evaluated: internal jugular vein, subclavian vein, axillary vein, and brachial veins. In addition, the basilic vein, cephalic vein, radial vein, and ulnar vein. Serial compression, augmentation maneuvers, and spectral Doppler flow evaluation were performed. FINDINGS: No evidence of deep vein thrombosis or superficial thrombophlebitis in the left upper extremity. CONCLUSIONS No left upper extremity DVT. Dr. Monisha Ellison DO (Electronically Signed) Final Date: 23 December 2023 12:35 S
== END 2023-12-23 09:33 | disposition home or self-care (01) ==
LOC: RAD 09:33
PROVIDERS: PCP Family Medicine; Visit Provider Family Medicine
DX: M79.89 Other specified soft tissue disorders (principal); M79.662 Pain in left lower leg
CPT/HCPCS: 93971

== ENCOUNTER 2024-03-28 15:55 | Outpatient (CLI) | payer MEDICARE, SELFPAY ==
--- NOTE | 2024-03-28 15:59 | XR_ITS ---
WS: [id number] XR knee LT 3V* [id number] REASON FOR EXAM: PAIN IN LEFT KNEE FINDINGS: No fracture or focal bone lesion. Minimal to mild narrowing of the medial knee joint space with small marginal osteophytosis. Minimal to mild narrowing of the lateral knee joint space with minimal subchondral sclerosis. Small m arginal osteophytosis of the lateral tibial plateau. Patellofemoral joint space is intact and appears to be well-maintained. Mild subchondral sclerosis of the patella with small osteophytosis. XR/XR knee LT 3V* [id number] IMPRESSION: Mild osteoarthritis of the left knee.
== END 2024-03-28 15:56 | disposition home or self-care (01) ==
LOC: RAD 15:56
PROVIDERS: PCP Family Medicine; Visit Provider Family Medicine
DX: M25.562 Pain in left knee (principal)
CPT/HCPCS: 73562

== ENCOUNTER 2024-05-01 08:40 | Outpatient (CLI) | payer MEDICARE, SELFPAY ==
[2024-05-01 09:28] LABS: Alanine Aminotransferase 23 U/L (0-33); Albumin Level 4.1 g/dL (3.5-5.2); Alkaline Phosphatase 204 U/L (35-105); Anion Gap 16.2 (5-19); Aspartate Amino Transferase 34 U/L (0-32); Blood Urea Nitrogen 16 mg/dL (6-20); Calcium 9.5 mg/dL (8.5-10.5); Carbon Dioxide 25 mmol/L (22-29); Chloride 106 mmol/L (98-107); Chol HDL Ratio 3.36 mg/dL (0.0-4.40); Cholesterol 205 mg/dL (0-200); Globulin 3.4 g/dL (1.3-4.6); Glomerular Filtration Rate 66.5 mL/min (90-130); Glucose 88 mg/dL (65-115); HDL Cholesterol 61 mg/dL (60-100); LDL Cholesterol Calculated 121 mg/dL (50-129); LDL HDL Ratio 1.98 RATIO (0.00-3.22); Osmolality Calculated 297 mOsm/kg (285-295); Potassium 4.2 mmol/L (3.5-5.1); Sodium 143 mmol/L (136-145); Total Bilirubin 0.4 mg/dL (0.15-1.2); Total Protein 7.5 g/dL (6.6-8.7); Triglycerides 117 mg/dL (0-150)
[2024-05-01 09:47] LABS: Creatinine Urine, Random 219 mg/dL (28-217); Microalbum Creatinine Ratio Ur 5 mg/dL (0-20); Microalbumin Random Urine 1 ug/dL (0-20)
[2024-05-01 09:50] LABS: Estmated Average Glucose 100; Hemoglobin A1C 5.1 % (4.0-6.0)
== END 2024-05-01 08:41 | disposition home or self-care (01) ==
LOC: LAB 08:42
PROVIDERS: PCP Family Medicine; Visit Provider Internal Medicine
DX: E11.22 Type 2 diabetes mellitus with diabetic chronic kidney disease (principal); E11.65 Type 2 diabetes mellitus with hyperglycemia; N18.2 Chronic kidney disease, stage 2 (mild)
CPT/HCPCS: 36415; 80053; 80061; 82044; 83036

== ENCOUNTER → 2024-05-07 10:21 | Outpatient (BNVA) | payer SELFPAY | PROVIDERS: PCP Family Medicine; Visit Provider Specialist | DX: M17.12 Unilateral primary osteoarthritis, left knee | CPT/HCPCS: 73560; 73565 ==

== ENCOUNTER → 2024-06-06 08:08 | Outpatient (BNVA) | payer OTHER, MEDICAID, SELFPAY | PROVIDERS: PCP Family Medicine; Visit Provider Podiatrist Foot & Ankle Surgery | DX: M79.671 Pain in right foot (principal); M79.672 Pain in left foot; T84.84XA Pain due to internal orthopedic prosthetic devices, implants and grafts, initial encounter; Y79.2 Prosthetic and other implants, materials and accessory orthopedic devices associated with adverse incidents; M21.622 Bunionette of left foot | CPT/HCPCS: 73630 ==

== ENCOUNTER 2024-06-14 10:41 | Outpatient (CLI) | payer MEDICARE, SELFPAY ==
--- NOTE | 2024-06-14 11:00 | MR_ITS ---
WS: [id number] MRI LEFT KNEE NONCONTRAST TECHNIQUE: Axial PD, coronal PD fat sat, coronal PD, sagittal PD, and sagittal PD fat-sat images obta ined. CLINICAL INFORMATION: left knee pain COMPARISON: None. FINDINGS: Distal quadriceps and patellar tendons are intact. ACL and PCL appear normal. Severe degenerative art hritis medial and lateral joint compartments advanced for a patient this age. Grade IV chondromalacia medial joint compartment with subchondral edema. Evidence of bony infarcts in the distal femoral con dyles. Medial and lateral meniscus are normal in appearance with chronic thinning. No acute appearing meniscal tears. Mild chondromalacia patella. No subchondral edema. Medial and lateral patellar retinaculum appear int act. Normal popliteal fossa. Fibula appears normal. Medial and lateral collateral ligaments are intac t. Partially visualized fibula appears normal. MR/MR knee LT wo con* [id number] IMPRESSION: 1. Normal ACL and PCL. 2. Advanced degenerative arthritis involving the medial and lateral joint comp artments with grade IV chondromalacia and subchondral edema in the medial joint compartment. 3. Serpiginous areas of osteonecrosis involving the femoral condyles compatibl e with bony infarcts. Although etiology is nonspecific recommend correlation wi th clinical history of hemoglobinopathies, thalassemias, and connective tissue disorders. 4. Mild chondromalacia patella. 5. Chronic thinning of the medial and lateral meniscus. No acute appearing men iscal tears. 6. Shallow appearing trochlear groove although no evidence of dislocation. Rec ommend correlation for patellar instability. Outbridge grading: grade IV: full-thickness cartilage loss with underlying bone reactive changes
== END 2024-06-14 10:42 | disposition home or self-care (01) ==
PROVIDERS: PCP Family Medicine; Visit Provider Specialist
DX: M17.12 Unilateral primary osteoarthritis, left knee (principal); M87.052 Idiopathic aseptic necrosis of left femur; M94.262 Chondromalacia, left knee
CPT/HCPCS: 73721

== ENCOUNTER → 2024-06-20 13:48 | Outpatient (BNVA) | payer MEDICARE, SELFPAY | PROVIDERS: PCP Family Medicine; Visit Provider Specialist | DX: M17.12 Unilateral primary osteoarthritis, left knee (principal); M87.052 Idiopathic aseptic necrosis of left femur | CPT/HCPCS: 20610; 99214; J1100; J2795; J3301 ==

== ENCOUNTER 2024-07-02 13:30 | Outpatient (CLI) | payer MEDICARE, MEDICAID, SELFPAY ==
[2024-07-02 14:16] LABS: Alanine Aminotransferase 19 U/L (0-33); Albumin Level 3.9 g/dL (3.5-5.2); Alkaline Phosphatase 232 U/L (35-105); Anion Gap 15.6 (5-19); Aspartate Amino Transferase 19 U/L (0-32); Blood Urea Nitrogen 18 mg/dL (6-20); Calcium 8.8 mg/dL (8.5-10.5); Carbon Dioxide 26 mmol/L (22-29); Chloride 105 mmol/L (98-107); Cholesterol 262 mg/dL (0-200); Globulin 3.1 g/dL (1.3-4.6); Glomerular Filtration Rate 66.3 mL/min (90-130); Glucose 108 mg/dL (65-115); HDL Cholesterol 77 mg/dL (60-100); LDL Cholesterol Calculated 156 mg/dL (50-129); LDL HDL Ratio 2.03 RATIO (0.00-3.22); Osmolality Calculated 298 mOsm/kg (285-295); Potassium 3.6 mmol/L (3.5-5.1); Sodium 143 mmol/L (136-145); Total Bilirubin 0.3 mg/dL (0.15-1.2); Triglycerides 145 mg/dL (0-150)
[2024-07-02 14:27] LABS: Creatinine Urine, Random 147 mg/dL (28-217); Microalbum Creatinine Ratio Ur 7 mg/dL (0-20); Microalbumin Random Urine 1 ug/dL (0-20)
[2024-07-02 14:46] LABS: Estmated Average Glucose 97
== END 2024-07-02 13:31 | disposition home or self-care (01) ==
LOC: LAB 13:32
PROVIDERS: PCP Family Medicine; Visit Provider Internal Medicine
DX: E11.22 Type 2 diabetes mellitus with diabetic chronic kidney disease (principal); E11.65 Type 2 diabetes mellitus with hyperglycemia; N18.2 Chronic kidney disease, stage 2 (mild); E78.2 Mixed hyperlipidemia
CPT/HCPCS: 36415; 80053; 80061; 82044; 83036

== ENCOUNTER → 2024-07-05 09:52 | Outpatient (BNVA) | payer MEDICARE, MEDICAID, SELFPAY | PROVIDERS: PCP Family Medicine; Visit Provider Internal Medicine | DX: E11.9 Type 2 diabetes mellitus without complications; E78.2 Mixed hyperlipidemia; R74.8 Abnormal levels of other serum enzymes; Z79.899 Other long term (current) drug therapy; E21.3 Hyperparathyroidism, unspecified; I10 Essential (primary) hypertension; Z79.85 Long-term (current) use of injectable non-insulin antidiabetic drugs | CPT/HCPCS: 99214 ==

== ENCOUNTER 2024-07-17 13:57 | Outpatient (CLI) | payer MEDICARE, MEDICAID, SELFPAY ==
--- NOTE | 2024-07-17 14:30 | XR_ITS ---
WS: [id number] SCREENING DEXA SCAN [place] CLINICAL INFORMATION: hyperparathyroid COMPARISON: 2012 FINDINGS: The L1-L4 bone mineral density measures 1.125 g/cm2. This corresponds to a T score score of -0.5 and Z score of -0.1. Left femoral neck bone mineral density measures 0.740 g/cm2. This corresponds to a T score of -2.1 an d Z score of -1.7. Right femoral neck bone mineral density measures 0.778 g/cm2. This corresponds to a T score -1.8of an d Z score of -1.4. Mean femoral neck bone mineral density measures 0.759 g/cm2. This corresponds to a T score of -2.0 an d Z score of -1.5. XR/XR DEXA axial skeleton* [id number] IMPRESSION: Normal bone mineralization lumbar spine. Osteopenia femoral necks. Patient's FRAX calculated 10 year probability for major osteoporotic fracture i s 6.2% and osteoporotic hip fracture is 1.2%. Bone marrow density lumbar spine increased 5.8% Bone mineral density femoral necks decreased -12.9%
== END 2024-07-17 13:58 | disposition home or self-care (01) ==
PROVIDERS: PCP Family Medicine; Visit Provider Internal Medicine
DX: Z13.820 Encounter for screening for osteoporosis (principal); E21.3 Hyperparathyroidism, unspecified; M85.859 Other specified disorders of bone density and structure, unspecified thigh
CPT/HCPCS: 77080

== ENCOUNTER → 2024-07-30 09:01 | Outpatient (BNVA) | payer MEDICARE, MEDICAID, SELFPAY | PROVIDERS: PCP Family Medicine; Visit Provider Specialist | DX: M17.12 Unilateral primary osteoarthritis, left knee (principal); M87.052 Idiopathic aseptic necrosis of left femur | CPT/HCPCS: 99214 ==

== ENCOUNTER 2024-09-04 09:45 | Outpatient (CLI) | payer MEDICARE, MEDICAID, SELFPAY ==
[2024-09-04 10:12] LABS: Basophils # 0.1 10^3/uL (0.0-0.1); Basophils % 0.8 %; Eosinophils # 0.2 10^3/uL (0.0-0.8); Eosinophils % 1.8 %; Hematocrit 43.3 % (36-47); Lymphocytes % 33.9 %; Mean Corpuscular Hemoglobin 28.4 pg (27-33); Mean Corpuscular Volume 86.1 fl (85-98); Monocytes # 0.4 10^3/uL (0.2-0.9); Neutrophils # 5.15 10^3/uL (1.8-7.7); Neutrophils % 59.2 %; Nucleated Red Blood Cells % 0 %; Platelet Count 274 10^3/cmm (157-399); Red Blood Count 5.03 10^6/uL (3.85-5.65); White Blood Count 8.72 10^3/uL (3.29-11.43)
[2024-09-04 10:12] LABS: Bilirubin Urine Negative (Negative); Blood Urine Negative (Negative); Glucose Urine UA Negative (Normal); Ketones Urine Negative (Negative); Leukocyte Esterase Urine 1+ (Negative); Nitrate Urine Positive (Negative); Protein Urine Negative (Negative); Specific Gravity, Urine 1.018 (1.005-1.030); Urine Appearance Clear (CLEAR); Urine Color Yellow (Yellow)
[2024-09-04 10:16] LABS: Add Urine Microscopic? YES; Bacteria Urine 4+ /hpf; RBC Urine 0-2 /hpf (0-2); Squamous Epithelial Cell Urine 0-5 /hpf (0-5); WBC Urine 21-50 /hpf (0-5)
--- NOTE | 2024-09-04 10:30 | CT_ITS ---
WS: [id number] CT LEFT knee, noncontrast HISTORY: planning for left TKA 09/27/24 TECHNIQUE: Protocol for [facility] total knee replacement has been obtained. This includes axial imaging th rough the LEFT hip, LEFT knee and LEFT ankle. DLP: 915.15 mGy.cm COMPARISON: None available. Pelvis: No destructive bone process. Normal soft tissues. LEFT knee: Mild tricompartment joint space narrowing. No fracture. No soft tissue abnormality. LEFT ankle: Negative. CT/CT knee [facility] [id number] IMPRESSION: CT imaging provided for [facility] robotic total knee replacement.
[2024-09-04 10:32] LABS: Alanine Aminotransferase 16 U/L (0-33); Alkaline Phosphatase 216 U/L (35-105); Anion Gap 12.6 (5-19); Aspartate Amino Transferase 18 U/L (0-32); Blood Urea Nitrogen 12 mg/dL (6-20); Calcium 9.1 mg/dL (8.5-10.5); Carbon Dioxide 28 mmol/L (22-29); Chloride 101 mmol/L (98-107); Globulin 2.8 g/dL (1.3-4.6); Glomerular Filtration Rate 75.9 mL/min (90-130); Glucose 82 mg/dL (65-115); Osmolality Calculated 285 mOsm/kg (285-295); Potassium 3.6 mmol/L (3.5-5.1); Sodium 138 mmol/L (136-145); Total Bilirubin 0.3 mg/dL (0.15-1.2); Total Protein 6.8 g/dL (6.6-8.7)
[2024-09-04 10:34] LABS: Add Urine Culture? Yes
[2024-09-04 10:35] LABS: Estmated Average Glucose 91; Hemoglobin A1C 4.8 % (4.0-6.0)
== END 2024-09-04 09:46 | disposition home or self-care (01) ==
LOC: RAD 09:46
PROVIDERS: PCP Family Medicine; Visit Provider Specialist
DX: Z01.818 Encounter for other preprocedural examination (principal); M17.12 Unilateral primary osteoarthritis, left knee; Z79.899 Other long term (current) drug therapy; M87.052 Idiopathic aseptic necrosis of left femur
CPT/HCPCS: 36415; 73700; 80053; 81001; 83036; 85025; 87077; 87086; 87186

== ENCOUNTER → 2024-09-11 09:16 | Outpatient (BNVA) | payer MEDICARE, MEDICAID, SELFPAY | PROVIDERS: PCP Family Medicine; Visit Provider Family Medicine | DX: Z01.818 Encounter for other preprocedural examination (principal); I49.9 Cardiac arrhythmia, unspecified | CPT/HCPCS: 93005 ==

== ENCOUNTER 2024-09-18 09:02 | Outpatient (CLI) | payer MEDICARE, MEDICAID, SELFPAY ==
[2024-09-18 09:54] LABS: Bilirubin Urine Negative (Negative); Blood Urine Negative (Negative); Glucose Urine UA Negative (Normal); Ketones Urine Trace (Negative); Leukocyte Esterase Urine Trace (Negative); Nitrate Urine Negative (Negative); Protein Urine Trace (Negative); Urine Appearance Cloudy (CLEAR); Urine Color Yellow (Yellow)
[2024-09-18 09:59] LABS: Add Urine Microscopic? YES; Bacteria Urine 1+ /hpf; Hyaline Casts Urine 2.05 /lpf; RBC Urine 0-2 /hpf (0-2); Squamous Epithelial Cell Urine 21-50 /hpf (0-5)
[2024-09-18 10:23] LABS: UA Slide Review UA Slide Review Perf
== END 2024-09-18 09:03 | disposition home or self-care (01) ==
LOC: LAB 09:03
PROVIDERS: PCP Family Medicine; Visit Provider Specialist
DX: Z01.818 Encounter for other preprocedural examination (principal)
CPT/HCPCS: 81001

== ENCOUNTER 2024-09-19 10:55 | Outpatient (CLI) | payer MEDICARE, MEDICAID, SELFPAY ==
[2024-09-19 11:33] LABS: Bilirubin Urine Negative (Negative); Blood Urine Negative (Negative); Glucose Urine UA Negative (Normal); Ketones Urine Trace (Negative); Leukocyte Esterase Urine Trace (Negative); Nitrate Urine Negative (Negative); Protein Urine Trace (Negative); Specific Gravity, Urine 1.023 (1.005-1.030); Urine Appearance Clear (CLEAR); Urine Color Dark Yellow (Yellow)
[2024-09-19 11:35] LABS: Add Urine Microscopic? YES; Bacteria Urine Trace /hpf; Hyaline Casts Urine 4.52 /lpf; RBC Urine 0-2 /hpf (0-2); WBC Urine 0-5 /hpf (0-5)
[2024-09-19 11:51] LABS: Add Urine Culture? No
== END 2024-09-19 10:56 | disposition home or self-care (01) ==
LOC: LAB 10:56
PROVIDERS: PCP Family Medicine; Visit Provider Specialist
DX: M17.12 Unilateral primary osteoarthritis, left knee (principal)
CPT/HCPCS: 81001

== ENCOUNTER 2024-09-26 10:50 | Observation (INO) | payer MEDICARE, MEDICAID, SELFPAY ==
[2024-09-26] VITALS (24 sets, daily range): BP systolic 120–177; BP diastolic 81–119; PULSE 57–79; RESP 6–31; TEMP 36.3–37.2; O2SAT 92–100; BMI 26.5
[2024-09-26] MEDS: sodium chloride 0.9% 1,000 ML 30 ML IV (06:52)
[2024-09-26] MEDS: acetaminophen 1,000 MG/100 ML PIGGYBACK 400 MG IV ×3 (06:54→23:11)
[2024-09-26] MEDS: gabapentin 300 mg Capsule PO (06:55)
[2024-09-26] MEDS: CELEcoxib 200 mg Capsule 400 MG PO (06:55)
--- NOTE | 2024-09-26 07:07 | W.PM.OPSUD ---
Surgery/Procedure H&P Update DATE OF PROCEDURE: September 26, 2024 DATE H&P PERFORMED: 09/11/24 H&P UPDATE INFORMATION: I have reviewed H&P completed within last 30 days, I have examined patient prior to procedure, No changes to prior documentation and [place] is [place] [facility] date indicated PLANNED PROCEDURE: Operation Date: 09/26/24 08:05 Proposed Procedures p Jose Enrique Robot Total Knee Arthroplasty(Left) - Mariana Conteh MD Related Problem List Diagnoses (1) Primary osteoarthritis of left knee:
[2024-09-26 07:13] LABS: Bilirubin Urine Negative (Negative); Blood Urine Negative (Negative); Glucose Urine UA Negative (Normal); Ketones Urine Negative (Negative); Leukocyte Esterase Urine Negative (Negative); Nitrate Urine Negative (Negative); Protein Urine Negative (Negative); Specific Gravity, Urine 1.014 (1.005-1.030); Urine Appearance Clear (CLEAR); Urine Color Yellow (Yellow); pH Urine 7.5 (5-7)
[2024-09-26 07:18] LABS: Add Urine Microscopic? YES; Bacteria Urine None Seen /hpf; Hyaline Casts Urine 0-4 /lpf; RBC Urine 0-2 /hpf (0-2); Squamous Epithelial Cell Urine 0-5 /hpf (0-5); WBC Urine 0-5 /hpf (0-5)
--- NOTE | 2024-09-26 07:25 | ANES.PREANE2 ---
Pre-Anesthetic Assessment Height/Weight: Height 5 ft 2 in Weight 145 lb Temp Pulse Resp BP Pulse Ox O2 Del Method 97.4 F L 78 18 177/119 97 Room Air 09/26/24 06:36 09/26/24 06:36 09/26/24 06:36 09/26/24 06:36 09/26/24 06:36 09/26/24 06:36 Preop Diagnosis: Knee osteoarthritis Operation Date: 09/26/24 08:05 Proposed Procedures p Jose Enrique Robot Total Knee Arthroplasty(Left) - Mariana Conteh MD Was Beta Kezia taken within 24 hours: N/A Was Clonidine taken within 24 hours: N/A Last intake: Intake Last Liquid Date 09/25/24 Last Liquid Time 21:00 Last Solid Date 09/25/24 Last Solid Time 21:00 Social No alcohol and No tobacco Exam alert, oriented x 3, clear to auscultation bilaterally and regular rate & rhythm Airway Submandibular: within normal limits Cervical ROM: within normal limits Mallampati: Class II Dentition: other (Edentulous) Anesthetic Plan ASA status: 3 Anesthesia: MAC and Regional (specify below) Other: No prior issues with anesthesia NPO since yesterday Preop BP 177/119. No home BP meds Asthma, very occasional inhaler use Labs reviewed and acceptable for procedure EKG sinus rhythm Plan for spinal anesthetic Medications/Allergies Home Medications Medication Instructions Recorded Confirmed Last Taken Type cholecalciferol (vitamin D3) 25 25 mcg PO DAILY 04/13/22 09/26/24 09/23/24 History mcg (1,000 unit) capsule clonazepam 0.5 mg tablet 1 mg (2 x 0.5 mg) PO BID PRN 07/30/24 09/26/24 09/26/24 Rx amxiety #90 tabs semaglutide 2 mg/dose (8 mg/3 mL) 2 mg (0.75 mL) SUBCUT .weekly 1 07/30/24 09/26/24 09/18/24 Rx subcutaneous pen injector (Ozempic) month #8 mL zolpidem 10 mg tablet (Ambien) 10 mg PO BEDTIME #30 tabs 07/30/24 09/26/24 09/24/24 Rx paroxetine HCl 30 mg tablet (Paxil) 30 mg PO DAILY #30 tabs 08/27/24 09/26/24 09/26/24 Rx Allergies Allergy/AdvReac Type Severity Reaction Status Date / Time benzoin Allergy Mild rash Verified 09/26/24 06:34 chlorhexidine Allergy ALGY-Rash Verified 09/26/24 06:34 Current Medications Generic Name Dose Route Start Last Admin Trade Name Freq PRN Reason Stop Dose Admin Sodium Chloride 1,000 mls @ 30 mls/hr 09/26/24 06:30 09/26/24 06:52 Sodium Chloride 0.9% IV 09/27/24 06:29 30 mls/hr .Q24H KATY Administration PFSH Anesthesia Medical History Psychiatric care Bilateral renal stones Immunization counseling High risk medication use Bipolar disorder, current episode depressed, severe, with psychotic features Post-traumatic stress disorder, chronic Osteopenia Sarcoidosis Hypoglobulinemia Other specified disorders involving the immune mechanism, not elsewhere classified Osteoporosis Hypokalemia Left breast mass Calculus of left ureter Retained ureteral stent 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 Godfrey History of appendectomy History of cholecystectomy History of hysterectomy H/O bilateral mastectomy Family History Other Cancer Diabetes Hypertension Psychiatric illness Rheumatoid arthritis Stroke Denies family history of CAD (coronary artery disease) Systemic lupus erythematosus (SLE) in adult Social History Smoking and tobacco/nicotine status: never used tobacco/nicotine Quit status (tobacco/nicotine): has quit using Year quit tobacco: 1994 - 10/25 PPD x 3 Years Second hand smoke exposure: Yes Alcohol intake: never Substance/Drug Use: never Lives independently: Yes Household members: spouse Marital status: Current occupational status: disabled Do you think of yourself as: Straight/Heterosexual Current gender identity: Female Data Anesthesia Urine 09/26/24 Range/Units 06:40 Urine Color Yellow (Yellow) Urine Appearance Clear (CLEAR) Urine pH 7.5 (5-7) Ur Specific [place] 1.014 (1.005-1.030) Urine Protein Negative (Negative) Urine Glucose (UA) Negative (Normal) Urine Ketones Negative (Negative) Urine Nitrate Negative (Negative) Urine Bilirubin Negative (Negative) Ur Leukocyte Esterase Negative (Negative) Urine RBC 0-2 (0-2) /hpf Urine WBC 0-5 (0-5) /hpf Cardiac Studies: Stress Echocardiogram 07/16/20
[2024-09-26] MEDS: ceFAZolin 2,000 mg SDV 2000 MG IVP ×3 (08:24→23:11)
[2024-09-26] MEDS: tranexamic acid 1,000 mg/10mL SDV 1000 MG IV (09:07)
[2024-09-26] MEDS: VANCOMYCIN ADD-Vantage 1,000 MG VIAL 1000 MG XX (09:20)
[2024-09-26] MEDS: BUPivacaine liposome 13.3 mg/mL SDV 20 mL 266 MG INFILTRATI (09:21)
[2024-09-26] MEDS: BUPivacaine 0.5% INJ 30 mL 20 ML XX (09:21)
[2024-09-26] MEDS: ceFAZolin 1,000 mg SDV 2000 MG (09:22)
--- NOTE | 2024-09-26 11:16 | XRR_ITS ---
PROCEDURE INFORMATION: Exam: XR Left Knee Exam date and time: 09/26/2024 11:20 AM Age: 49 years old Clinical indication: Device placement; Joint replacement hardware; Prior surgery; Surgery date: Post-operative (0-2 days); Surgery type: Left total knee arthroplasty; Additional info: Status post left total knee arthroplasty TECHNIQUE: Imaging protocol: Radiologic exam of the left knee. Views: 1 or 2 views. COMPARISON: 1. CT knee LT JAMI [id number] 09/04/2024 10:46 AM 2. CR XR knees AP WB w LT lmt ORTH 05/07/2024 10:22 AM FINDINGS: Bones/joints: Status post total knee arthroplasty with intact hardware and adequate alignment. Regional soft tissue swelling and joint effusion with air lucency expected in the immediate postoperative setting. No acute fracture or dislocation. Soft tissues: See Bones/joints finding. XR/XR knee LT 1-2V [id number] IMPRESSION: Expected changes status post left total knee arthroplasty.
--- NOTE | 2024-09-26 11:24 | PM.OP ---
Operative Report Date of procedure: September 26, 2024 Pre-op diagnosis: Primary osteoarthritis left knee with slight varus deformity Post-op diagnosis: Primary osteoarthritis left knee with slight varus deformity Post-op findings: Severe degenerative osteoarthritis left knee with small osteophytes and mild flexion contracture Procedure done: Left total knee arthroplasty with Jose Enrique guidance Implants: The [place] total knee system with a size 2 triathlon beaded cruciate retaining femur left, a triathlon titanium tibial component size 2 beaded, a triathlon X3 tibial bearing CS insert size 2. X 9 mm and a beaded triathlon titanium asymmetric patella size 29 x 9 mm Specimens removed/disposition: Bone, disposed of Pathology: None Surgeon: Mariana Conteh MD Director Summer Sessions: Latonia Hernandez NP, who services were required for retraction, implantation, exposure, and closure of the knee. Anesthesia: MAC and Spinal (ASA 3) Estimated blood loss (mL): 150 Tourniquet time (min): 0 (Not utilized) IV fluids (mL): 800 Urine output (mL): 200 Complications: None Findings: Severe degenerative osteoarthritis with osteophyte formation, slight flexion contracture, and varus deformity Condition: stable Disposition: PACU (Then admit admit under observation status to the floor for postoperative rehabilitation and pain management) Brief History: This 49-year-old woman presented to the office with complaints of severe left knee pain. MRI demonstrated severe degenerative osteoarthritis with small areas of osteonecrosis involving the femur. Out bridging was rated a grade 4 on x-ray imaging. After discussion in the office, the patient wished to proceed with total knee arthroplasty. Risks and complications were discussed with her. Consents were signed and questions were answered at that time. Procedure: The patient was brought to the operating theater, and after undergoing spinal anesthesia with supplemental MAC, ASA 3, the left lower extremity was prepped with Dura-Prep and draped in usual fashion following placement of a tourniquet high on the leg. The leg was then draped free. Tourniquet was not elevated throughout the case. Surgical pause was performed, and at the time of the surgical pause, we confirmed the site and side of surgery. Additionally, we confirmed the appropriate and timely administration of preoperative antibiotics, Ancef 2 g and Transexemic acid 1 g.? The availability of equipment was confirmed, and the patient's identity was verbalized as well.? An additional transexemic acid 1 g was given at the end of the surgical procedure as well. Following the surgical pause, an incision was made centering over the patella continuing proximally and distally as necessary to allow access to the knee joint. Dissection continued through skin and soft tissues using a scalpel. Hemostasis was obtained using electrocautery. The skin incision was followed by a median parapatellar arthrotomy. The leg was extended, and the patella was able to be displaced laterally.? Appropriate arrays and markers were placed in appropriate position for use of the Jose Enrique.? Preoperative planning had been accomplished and was discussed in detail with the [facility] medical device sales representative.? Intraoperative mapping of the femur and tibia was accomplished after the arrays were placed.? Internal markers were also placed.? Once we had accomplished the Jose Enrique mapping, we began the appropriate resections for placement of the prosthesis.? The plan was for a cruciate retaining right total knee arthroplasty. Once appropriate mapping had been accomplished, retraction was established using manual retraction by surgical technicians and also the Jose Enrique leg positioner and retractors.? The knee was evaluated.? There was a significant osteoarthritic change.? Appropriate bone resection was accomplished using the Jose Enrique.? The femur was sized to a size 2.? Following femoral cuts, attention was directed to the tibia.? Osteophytes were removed prior to this portion of the procedure.? We had performed a minimal medial release at the beginning of the procedure to allow for placement of the array.? Proximal tibia was evaluated and it was felt that appropriate size for the tibia was a size 2. A trial reduction was accomplished after osteophytes have been removed as well as the medial and lateral menisci.? The knee was also balanced utilizing the Jose Enrique protocol. We had removed the anterior cruciate ligament at the beginning of the case and preserved the posterior cruciate ligament.? Medial release had been accomplished as well.? Trial reduction was accomplished with a size 2 femoral cruciate retaining component and a size 2 CS tibial bearing insert which was 9 mm in thickness which gave excellent varus valgus stability and full extension.? Alignment was felt to be appropriate as well.? Soft tissue releases were accomplished as needed. Trial components were removed after the femur had been drilled.? Prior to removal of the tibial tray which had been pinned in position with appropriate rotation as determined by the Jose Enrique plan, we broached the tibia.? Subsequently, the 4 drill holes were made for the prosthetic component.? All trial components were removed, and the wound was irrigated.? Plans were made for insertion of the prosthetic components.? Prior to this, the patella was manually prepared.? After resection of the articular surface with the jogging system, it was measured and measured a 29 mm x 9 mm patella.? We resected approximately 8 mm of patella, and patellar height was restored with the patellar component. Once again, the wound was irrigated.? The Tritanium tibia was impacted into position.? The beaded femur was then impacted into position in a cementless fashion. The CS tibial insert was placed prior to placement of the femoral component. The patella was pressed into position with a patellar clamp.? Exparel was injected about the components deep and superficially.? The knee was then copiously irrigated with betadine and saline and suctioned dry. Attention was then directed to closure. Closure was accomplished with 0 Vicryl in the fascial tissues.? This closure was supplemented with #1 strata fix with 2 passes of the STRATAFIX. One from proximal distal and the other from distal to proximal. This was followed by Surgiflo and vancomycin powder.? Following this, a 2-0 Monocryl strata fix was used in the subcutaneous tissues, and the skin was closed with a running 3-0 STRATAFIX.? Care was taken to assure an excellent subcutaneous as well as skin closure.? A sterile dressing was then placed consisting of Dermabond Prineo, OpSite, sterile soft roll including over the foot, and an Rios wrap. The patient was returned the Recovery Room in a satisfactory condition. X-rays were obtained and reviewed there.? The patient will be discharged to the floor for postoperative rehabilitation and pain management. Related Problem List Diagnoses (1) Primary osteoarthritis of left knee:
[2024-09-26] MEDS: fentaNYL 50 mcg/mL INJ 2mL IVP ×2 (11:31→11:43)
[2024-09-26] MEDS: labetalol 5 mg/mL SDV 20mL IVP (11:52)
--- NOTE | 2024-09-26 12:05 | ANE.PACU2 ---
Inpatient post-anesthesia follow up: Airway intact: Yes Vital signs: Temperature 98.1 F Pulse Rate 62 Respiratory Rate 18 Blood Pressure 120/81 Pulse Oximetry 93 Oxygen Delivery Me thod Room Air Oxygen Flow Rate Fraction of Inspir ed Oxygen Hydration adequate: Yes Nausea and vomiting: No Pain level: 1 Mental status: Baseline
--- NOTE | 2024-09-26 12:21 | PC.NURSE ---
1210 - Maida into room to accept pt to floor temp 97.6 - bp 161/97 - 02 100% pulse 62 - no distress noted to pt upon this nurse leaving room
[2024-09-26] MEDS: chlorhexidine gluconate 0.12% Btl 473 mL 30 ML MUCOUS MEM ×3 (13:46→21:17)
[2024-09-26] MEDS: CELEcoxib 200 mg Capsule PO ×2 (13:46→23:11)
[2024-09-26] MEDS: oxyCODONE 5 mg IR Tab/Cap PO ×3 (13:51→23:32)
[2024-09-26] MEDS: tranexamic acid 1,000 MG/100 ML PREMIX 600 MG IV (15:13)
[2024-09-26] MEDS: iron polysaccharide complex 150 mg Capsule PO (17:55)
[2024-09-26] MEDS: mupirocin oint 22 gm 1 APPLIC NASAL (17:55)
[2024-09-26] MEDS: sennosides-docusate Tablet 2 TAB PO (17:55)
[2024-09-26] MEDS: zolpidem 5 mg Tablet 10 MG PO (21:17)
[2024-09-27] VITALS (7 sets, daily range): BP systolic 117–153; BP diastolic 76–94; PULSE 60–74; RESP 15–18; TEMP 36.4–37.1; O2SAT 94–96; BMI 26.5
[2024-09-27 05:56] LABS: Basophils % 0.5 %; Eosinophils # 0.2 10^3/uL (0.0-0.8); Eosinophils % 2.4 %; Hematocrit 36.3 % (36-47); Lymphocytes # 1.8 10^3/uL (0.8-4.8); Lymphocytes % 24.8 %; Mean Corpuscular Hemoglobin 28.7 pg (27-33); Mean Corpuscular Volume 89.9 fl (85-98); Mean Platelet Volume 8.7 fL (7.4-10.4); Monocytes # 0.5 10^3/uL (0.2-0.9); Monocytes % 6.4 %; Neutrophils # 4.81 10^3/uL (1.8-7.7); Neutrophils % 65.2 %; Nucleated Red Blood Cells % 0 %; Platelet Count 209 10^3/cmm (157-399); Red Blood Count 4.04 10^6/uL (3.85-5.65); Red Cell Distribution Width 13.2 % (12.1-15.1); White Blood Count 7.38 10^3/uL (3.29-11.43)
[2024-09-27] MEDS: acetaminophen 1,000 MG/100 ML PIGGYBACK 400 MG IV (06:06)
[2024-09-27 06:18] LABS: Anion Gap 12.8 (5-19); Blood Urea Nitrogen 13 mg/dL (6-20); Calcium 8.7 mg/dL (8.5-10.5); Carbon Dioxide 27 mmol/L (22-29); Chloride 109 mmol/L (98-107); Glomerular Filtration Rate 66.3 mL/min (90-130); Glucose 105 mg/dL (65-115); Osmolality Calculated 300 mOsm/kg (285-295); Potassium 3.8 mmol/L (3.5-5.1); Sodium 145 mmol/L (136-145)
[2024-09-27 06:34] LABS: Glucose Point of Care 171 mg/dL (70-110)
[2024-09-27] MEDS: chlorhexidine gluconate 0.12% Btl 473 mL 30 ML MUCOUS MEM ×2 (07:56→11:55)
[2024-09-27] MEDS: mupirocin oint 22 gm 1 APPLIC NASAL (07:56)
[2024-09-27] MEDS: ceFAZolin 2,000 mg SDV 2000 MG IVP (07:56)
[2024-09-27] MEDS: PARoxetine 20 mg Tablet 30 MG PO (07:57)
[2024-09-27] MEDS: iron polysaccharide complex 150 mg Capsule PO (07:57)
[2024-09-27] MEDS: oxyCODONE 5 mg IR Tab/Cap PO ×2 (07:57→11:55)
[2024-09-27] MEDS: aspirin 325 mg EC Tablet PO (07:58)
[2024-09-27] MEDS: sennosides-docusate Tablet 2 TAB PO (07:58)
[2024-09-27] MEDS: cholecalciferol (vitamin D3) 1,000 unit Tablet 1000 UNIT PO (07:58)
[2024-09-27] MEDS: multivitamin therapeutic Tablet 1 TAB PO (07:58)
[2024-09-27] MEDS: acetaminophen 500 mg Tablet 1000 MG PO (10:44)
[2024-09-27] MEDS: CELEcoxib 200 mg Capsule PO (10:44)
--- NOTE | 2024-09-27 13:02 | PM.DCS ---
Discharge Providers Date of Admission: 09/26/24 10:50 Date of Discharge: September 27, 2024 Attending Provider at Admission: Mariana Conteh MD Attending Provider at Discharge: Mariana Conteh MD Primary Care Provider: Amy Cleary DO Diagnoses at Discharge Discharge Diagnosis (1) Status post total knee replacement, left: Status: Acute Permanent problem details: Date of procedure: September 26, 2024 Pre-op diagnosis: Primary osteoarthritis left knee with slight varus deformity Procedure done: Left total knee arthroplasty with Jose Enrique guidance Implants: The [employer] total knee system with a size 2 triathlon beaded cruciate retaining femur left, a triathlon titanium tibial component size 2 beaded, a triathlon X3 tibial bearing CS insert size 2. X 9 mm and a beaded triathlon titanium asymmetric patella size 29 x 9 mm. Surgeon: Mariana Conteh MD (2) Primary osteoarthritis of left knee: Status: Acute Reason for Visit Reason for Visit: m17.12 Brief History: This 49-year-old woman presented to the office with complaints of severe left knee pain. MRI demonstrated severe degenerative osteoarthritis with small areas of osteonecrosis involving the femur. Out bridging was rated a grade 4 on x-ray imaging. After discussion in the office, the patient wished to proceed with total knee arthroplasty. Risks and complications were discussed with her. Consents were signed and questions were answered at that time. Underwent total knee arthroplasty, without complication on 09/26/2024. Hospital Course Hospital Course This 49-year-old woman was admitted for same-day surgery in the form of left total knee arthroplasty. She was admitted to the floor postoperatively under observation status. She did have a significant amount of pain postoperatively, but this is controlled with oral medications. She worked with physical therapy for ambulation with walker and has done well. She is able to straight leg raise today. Plans were made for her discharge home. There was no evidence of DVT and no evidence of complication. Physical Exam Const: COMMON NORMALS: no acute distress, average body habitus, patient oriented x3, no limitations, alert and well nourished GENERAL APPEARANCE: cooperative; not anxious and not combative ORIENTATION/CONSCIOUSNESS: Yes awake, Yes oriented to person, Yes oriented to place and Yes oriented to time HENMT: COMMON NORMALS: normocephalic and atraumatic HEAD & SCALP: normocephalic and atraumatic Resp: COMMON NORMALS: normal respiratory effort Cardio: OTHER: Declined shortness of breath, chest discomfort or other acute concern. Extremity: LEFT LOWER EXTREMITY: Yes knee joint (Incision closed subcu) Left knee: Yes inspection (Mild swelling and bruising. No S/S infection. ), Yes palpation (TTP to distal quad and anterior knee.), Yes ROM (Full extension in bed. Able to straight leg raise.), Yes neurovascular exam (Sensation intact to light touch. 2+ distal pulses. Rapid cap refill) and Yes other (Minimal drainage to PTOP DSG) and Yes lower leg Left lower leg: Yes inspection (No swelling, erythema or bruising.), Yes palpation (No TTP.) and Yes special tests Left lower leg special tests: Radha's sign: Negative Neuro: COMMON NORMALS: patient oriented x3 SENSORIUM/ORIENTATION: Yes alert, Yes oriented to person, Yes oriented to place and Yes oriented to time Psych: ATTITUDE: Yes engaged Skin: COMMON NORMALS: no rashes or lesions noted, turgor normal and no jaundice GENERAL SKIN EXAM: no rashes or lesions noted and turgor normal Urinary Catheter Management: Echevarria: Cath Placed During This Visit: yes, but has since been removed by the nurse Reason for Continuing Indwelling Catheter: Decision to DC Catheter Urinary Catheter Date of Insertion: 09/26/24 Urinary Catheter Time of Insertion: 08:35 Date Urinary Catheter Removed: 09/27/24 Time Urinary Catheter Discontinued: 06:29 Discharge Data Studies Completed and Pending Completed Studies During Hospitalization Category Date Time Status XR knee LT 1-2V 22514 Urgent Exams 09/26/24 11:16 Completed Pending at discharge Category Date Time Status Complete Blood Count w/Auto AM LABS Lab 09/28/24 04:00 Ordered Complete Blood Count w/Auto AM LABS Lab 09/29/24 04:00 Ordered Radiology Impressions Knee X-Ray 09/26/24 11:16 IMPRESSION: Expected changes status post left total knee arthroplasty. Laboratory Results WBC 7.38 10^3/uL (3.29-11.43) 09/27/24 05:39 RBC 4.04 10^6/uL (3.85-5.65) 09/27/24 05:39 Hgb 11.60 g/dL (11.27-16.99) 09/27/24 05:39 Hct 36.3 % (36-47) 09/27/24 05:39 MCV 89.9 fl (85-98) 09/27/24 05:39 MCH 28.7 pg (27-33) 09/27/24 05:39 MCHC 32.0 g/dL (30-55) 09/27/24 05:39 RDW 13.2 % (12.1-15.1) 09/27/24 05:39 Plt Count 209 10^3/cmm (157-399) 09/27/24 05:39 MPV 8.7 fL (7.4-10.4) 09/27/24 05:39 Neut % (Auto) 65.2 % 09/27/24 05:39 Lymph % (Auto) 24.8 % 09/27/24 05:39 [place] % (Auto) 6.4 % 09/27/24 05:39 Eos % (Auto) 2.4 % 09/27/24 05:39 Baso % (Auto) 0.5 % 09/27/24 05:39 Neut # (Auto) 4.81 10^3/uL (1.8-7.7) 09/27/24 05:39 Lymph # (Auto) 1.8 10^3/uL (0.8-4.8) 09/27/24 05:39 [place] # (Auto) 0.5 10^3/uL (0.2-0.9) 09/27/24 05:39 Eos # (Auto) 0.2 10^3/uL (0.0-0.8) 09/27/24 05:39 Baso # (Auto) 0.0 10^3/uL (0.0-0.1) 09/27/24 05:39 Nucleated RBC % (auto) 0 % 09/27/24 05:39 Nucleated RBCs # 0.0 /100WBC 09/27/24 05:39 Sodium 145 mmol/L (136-145) 09/27/24 05:39 Potassium 3.8 mmol/L (3.5-5.1) 09/27/24 05:39 Chloride 109 mmol/L (98-107) H 09/27/24 05:39 Carbon Dioxide 27 mmol/L (22-29) 09/27/24 05:39 Anion Gap 12.8 (5-19) 09/27/24 05:39 BUN 13 mg/dL (6-20) 09/27/24 05:39 Creatinine 0.9 mg/dL (0.5-0.9) 09/27/24 05:39 GFR Calculation 66.3 mL/min (90-130) L 09/27/24 05:39 Glucose 105 mg/dL (65-115) 09/27/24 05:39 POC Glucose 171 mg/dL (70-110) H 09/27/24 06:32 Calculated Osmolality 300 mOsm/kg (285-295) H 09/27/24 05:39 Calcium 8.7 mg/dL (8.5-10.5) 09/27/24 05:39 Urine Color Yellow (Yellow) 09/26/24 06:40 Urine Appearance Clear (CLEAR) 09/26/24 06:40 Urine pH 7.5 (5-7) 09/26/24 06:40 Ur Specific [place] 1.014 (1.005-1.030) 09/26/24 06:40 Urine Protein Negative (Negative) 09/26/24 06:40 Urine Glucose (UA) Negative (Normal) 09/26/24 06:40 Urine Ketones Negative (Negative) 09/26/24 06:40 Urine Blood Negative (Negative) 09/26/24 06:40 Urine Nitrate Negative (Negative) 09/26/24 06:40 Urine Bilirubin Negative (Negative) 09/26/24 06:40 Urine Urobilinogen 1.0 mg/dL (Negative) 09/26/24 06:40 Ur Leukocyte Esterase Negative (Negative) 09/26/24 06:40 Urine RBC 0-2 /hpf (0-2) 09/26/24 06:40 Urine WBC 0-5 /hpf (0-5) 09/26/24 06:40 Ur Squamous Epith Cells 0-5 /hpf (0-5) 09/26/24 06:40 Amorphous Sediment Not Reportable 09/26/24 06:40 Urine Bacteria None seen /hpf (NONE) 09/26/24 06:40 Hyaline Casts 0-4 /lpf H 09/26/24 06:40 Imaging Xray Ortho: Radiologist's impression: X-rays were obtained in PACU on September 26, 2024, immediately following left total knee arthroplasty. X-ray images include 2 views of the patient's left knee and these are personally reviewed by me. X-rays are essentially consistent with stable appearing left total knee arthroplasty, without evidence of hardware failure, loosening or acute change. Vitals Last Vital Signs Temp 98.0 F 09/27/24 07:15 Pulse 74 09/27/24 07:15 Resp 18 09/27/24 11:55 BP 128/90 09/27/24 07:15 Pulse Ox 96 09/27/24 07:15 O2 Del Method Room Air 09/27/24 07:15 Discharge Plan Discharge Patient Disposition: Home Health Service Condition: Stable Prescriptions: New celecoxib 200 mg Capsule 200 mg PO 1XD 30 Days Qty: 30 0RF acetaminophen 500 mg Tablet 1,000 mg PO Q8H 15 Days Qty: 90 0RF aspirin 325 mg Tablet,Delayed Release (Dr/Ec) 325 mg PO DAILY 30 Days Qty: 30 0RF oxycodone 5 mg Tablet 5 - 10 mg PO Q4H PRN (Reason: Moderate To Severe Pain) 7 Days Qty: 40 0RF Continued cholecalciferol (vitamin D3) 25 mcg (1,000 unit) capsule 25 mcg PO DAILY Patient Comments: Pt no longer taking this medication paroxetine HCl [Paxil] 30 mg tablet 30 mg PO DAILY Qty: 30 2RF Ambien 10 mg tablet 10 mg PO BEDTIME Qty: 30 2RF clonazepam 0.5 mg tablet 1 mg PO BID PRN (Reason: amxiety) Qty: 90 2RF Rx Instructions: 1-2 tablets up to twice daily as needed for severe anxiety Ozempic 2 mg/dose (8 mg/3 mL) pen injector 2 mg SUBCUT .weekly 30 Days Qty: 8 3RF Discharge Orders: Discharge Order (Routine); Ordered 09/27/24 Ordered By: Latonia Hernandez Other Ambulatory Orders: DME: Walker (Order) Location: None Selected Ordered By: Mariana Conteh Referrals: [facility] ([facility]) [Outside] Mariana Conteh MD [Physician] - 10/10/24 9:45 am Discharge Diet: Advance as tolerated and Usual diet Discharge Activity: Increase activity as tolerated, Limit activity as instructed, Use walker/crutches as instructed and As per PT/OT instructions Patient Instructions: Oxycodone, Rapid Release (By mouth), Celecoxib (By mouth), Acute Wound Care (DC), Total Knee Replacement (DC), Opioid Safety, Post Anesthesia Care Activity Restrictions/Additional Instructions: Ice to left lower extremity. Range of motion, gait training, and strengthening per physical therapy. You may shower, but do not soak your knee in water. Weightbearing as tolerated. Maintain your dressing until you are seen in the office unless it begins to leak and then you may remove the outer portion of the dressing. Discharge Attestations Time Spent in Discharge Care*: greater than 30 min Quality Metrics Clinical Quality Measures [ No reported AMI, CVA or VTE this stay] Coding Level of Care Code Acute Code for Chg Fwd Diagnoses Status post total knee replacement, left Z96.652 Primary osteoarthritis of left knee M17.12
--- NOTE | 2024-09-27 13:35 | PC.NURSE ---
Discharge instructions provided to pt and her family. NO questions or concerns voiced. Extra ice packs sent with pt. To private vehicle with all belongings via wheelchair.
== END 2024-09-27 13:42 | disposition home health service (06) ==
LOC: MEDSURG 10:55
PROVIDERS: Nurse Practitioner; Admitting Provider Specialist; PCP Family Medicine; Visit Provider Specialist
PROC: 8E0Y0CZ Robotic Assisted Procedure of Lower Extremity, Open Approach (ICD-10-PCS; CPT 27447; principal; 2024-09-26 08:05)
DX: M17.12 Unilateral primary osteoarthritis, left knee (principal); M25.762 Osteophyte, left knee; M24.562 Contracture, left knee; M81.0 Age-related osteoporosis without current pathological fracture; I10 Essential (primary) hypertension; F32.A Depression, unspecified; K21.9 Gastro-esophageal reflux disease without esophagitis
CPT/HCPCS: 27447; 20985; 36415; 36416; 51702; 73560; 80048; 81001; 82962; 85025; 97110; 97116; 97161; 97165; C1776; C9290; G0378; J0131; J0690; J2250; J2704; J3010; J3370; J3490; J7030

== ENCOUNTER → 2024-10-10 09:36 | Outpatient (BNVA) | payer MEDICARE, MEDICAID, SELFPAY | PROVIDERS: PCP Family Medicine; Visit Provider Specialist | DX: Z96.652 Presence of left artificial knee joint (principal); R03.0 Elevated blood-pressure reading, without diagnosis of hypertension; M17.12 Unilateral primary osteoarthritis, left knee | CPT/HCPCS: 73560; 73565; 99024 ==

== ENCOUNTER 2024-10-15 08:34 | Outpatient (RCR) | payer MEDICARE, MEDICAID, SELFPAY | END 2024-10-23 23:59 | disposition home or self-care (01) | LOC: SPT 08:34 | PROVIDERS: Visit Provider Specialist | DX: Z47.1 Aftercare following joint replacement surgery (principal); Z96.652 Presence of left artificial knee joint | CPT/HCPCS: 97110; 97161 ==

== ENCOUNTER 2024-10-24 06:00 | Outpatient (RCR) | payer MEDICARE, MEDICAID, SELFPAY | END 2024-11-23 23:59 | disposition home or self-care (01) | LOC: SPT 06:00 | PROVIDERS: Visit Provider Specialist | DX: Z47.1 Aftercare following joint replacement surgery (principal); Z96.652 Presence of left artificial knee joint | CPT/HCPCS: 97110; 97112 ==

== ENCOUNTER 2024-11-24 06:30 | Outpatient (RCR) | payer MEDICARE, SELFPAY | END 2024-12-21 23:59 | disposition home or self-care (01) | LOC: SPT 06:30 | PROVIDERS: Visit Provider Specialist | DX: Z47.1 Aftercare following joint replacement surgery (principal); Z96.652 Presence of left artificial knee joint; Z47.89 Encounter for other orthopedic aftercare; M25.562 Pain in left knee | CPT/HCPCS: 97110 ==

== ENCOUNTER 2025-02-04 08:35 | Outpatient (CLI) | payer OTHER, MEDICAID, SELFPAY ==
[2025-02-04 09:44] LABS: Estmated Average Glucose 126
[2025-02-04 09:52] LABS: Calcium 9.3 mg/dL (8.5-10.5)
[2025-02-04 10:12] LABS: 25 Hydroxy Vitamin D 25 ng/mL (30-100); Alanine Aminotransferase 17 U/L (0-33); Albumin Level 4.2 g/dL (3.5-5.2); Alkaline Phosphatase 249 U/L (35-105); Anion Gap 14.9 (5-19); Aspartate Amino Transferase 21 U/L (0-32); Blood Urea Nitrogen 15 mg/dL (6-20); Calcium 9.3 mg/dL (8.5-10.5); Carbon Dioxide 25 mmol/L (22-29); Chloride 104 mmol/L (98-107); Chol HDL Ratio 6.25 mg/dL (0.0-4.40); Cholesterol 300 mg/dL (0-200); Globulin 3.6 g/dL (1.3-4.6); Glomerular Filtration Rate 75.9 mL/min (90-130); Glucose 98 mg/dL (65-115); HDL Cholesterol 48 mg/dL (60-100); LDL Cholesterol Calculated 196 mg/dL (50-129); LDL HDL Ratio 4.08 RATIO (0.00-3.22); Osmolality Calculated 291 mOsm/kg (285-295); Potassium 3.9 mmol/L (3.5-5.1); Sodium 140 mmol/L (136-145); Total Bilirubin 0.3 mg/dL (0.15-1.2); Total Protein 7.8 g/dL (6.6-8.7); Triglycerides 280 mg/dL (0-150)
[2025-02-04 10:14] LABS: Creatinine Urine, Random 152 mg/dL (28-217); Microalbum Creatinine Ratio Ur 13 mg/dL (0-20); Microalbumin Random Urine 2 ug/dL (0-20)
[2025-02-04 14:21] LABS: Parathyroid Hormone 53.7 pg/mL (15-65)
== END 2025-02-04 08:36 | disposition home or self-care (01) ==
LOC: LAB 08:39
PROVIDERS: PCP Family Medicine; Visit Provider Internal Medicine
DX: E83.52 Hypercalcemia (principal); E78.2 Mixed hyperlipidemia; E11.9 Type 2 diabetes mellitus without complications; R74.8 Abnormal levels of other serum enzymes; Z79.899 Other long term (current) drug therapy
CPT/HCPCS: 36415; 80053; 80061; 82044; 82306; 82310; 83036; 83970

== ENCOUNTER → 2025-02-06 09:11 | Outpatient (BNVA) | payer MEDICARE, MEDICAID, SELFPAY | PROVIDERS: PCP Family Medicine; Visit Provider Internal Medicine | DX: Z79.899 Other long term (current) drug therapy (principal); R74.8 Abnormal levels of other serum enzymes; I10 Essential (primary) hypertension; E78.2 Mixed hyperlipidemia; E11.9 Type 2 diabetes mellitus without complications | CPT/HCPCS: 99214 ==

== ENCOUNTER 2025-03-14 15:53 | Outpatient (CLI) | payer MEDICARE, MEDICAID, SELFPAY ==
--- NOTE | 2025-03-14 16:16 | XR_ITS ---
WS: [id number] Lumbar spine, 3 views, 03/14/2025 Clinical Data: LOWER BACK PAIN Comparison: Lumbar spine, 04/10/2019 Findings: No compression fractures or subluxation is seen. No disc space narrowing is seen. Minimal osteoarthritis of all the lumbar vertebral bodies is noted. There is facet joint arthritis from L4-L5 through L5-S1. There are surgical clips in the right upper quadrant, left side of the abdomen and in the true pelvis. The transverse processes and SI joints are normal. XR/XR lumbar spine 2-3V* [id number] Impression: Osteoarthritis of all the lumbar vertebral bodies along with lower facet joint arthritis.
== END 2025-03-14 15:54 | disposition home or self-care (01) ==
PROVIDERS: PCP Family Medicine; Visit Provider Family Medicine
DX: M47.897 Other spondylosis, lumbosacral region (principal); M25.78 Osteophyte, vertebrae; M47.896 Other spondylosis, lumbar region; R93.5 Abnormal findings on diagnostic imaging of other abdominal regions, including retroperitoneum
CPT/HCPCS: 72100

== ENCOUNTER 2025-03-27 07:57 | Outpatient (CLI) | payer OTHER, MEDICAID, SELFPAY ==
--- NOTE | 2025-03-27 08:01 | MR_ITS ---
WS: [id number] MRI LUMBAR SPINE NONCONTRAST HISTORY: CHRONIC BACK PAIN COMPARISON: Radiograph 03/14/2025 TECHNIQUE: Sagittal and axial multisequence imaging is submitted. Normal lumbar alignment with no compression fractures or marrow edema. Disc spaces and vertebral body heights are well-preserved. Conus terminates normally at L1-2 disc level. L1-L2: Mild facet arthritis. No stenosis. L2-L3: Mild facet arthritis. No stenosis. L3-L4: Mild annular disc bulging with mild ligamentum flavum and facet arthritis. Mild encroachment upon the ventral thecal sac and subarticular recesses. Small bilateral foraminal disc protrusions. There is mild encroachment upon the exiting L3 nerve roots. L4-L5: Mild annular disc bulging slightly asymmetric to the LEFT. LEFT foraminal shallow broad-based disc protrusion with annular fissures. There is mild disc contact on the traversing L5 nerve roots in the subarticular recesses. Mild LEFT foraminal stenosis. There is very slight disc contact also on the LEFT exiting L4 nerve root. Mild increased signal in the soft tissues at L4-5 involving the paravertebral soft tissues and ligaments. L5-S1: Mild disc bulging with a shallow central disc protrusion. Mild ligamentum flavum and facet arthritis. Bilateral small renal cysts. Paravertebral soft tissues are normal. MR/MR lumbar spine wo con* [id number] IMPRESSION: 1. No acute fracture or marrow edema. 2. Increased T2 signal in the paravertebral soft tissues and surrounding the f acet joints bilaterally at L4-5. Consider mild acute synovitis. 3. L3-4: Mild disc encroachment upon the ventral thecal sac and subarticular r ecesses. Small bilateral foraminal protrusions. Very mild encroachment upon the exiting L3 nerve roots. 4. L4-5: LEFT foraminal broad-based disc protrusion with annular fissures. Mil d disc contact on the traversing L5 nerve roots and the LEFT exiting L4 nerve r oot. 5. L5-S1: Shallow central disc protrusion.
== END 2025-03-27 07:58 | disposition home or self-care (01) ==
PROVIDERS: PCP Family Medicine; Visit Provider Family Medicine
DX: M51.26 Other intervertebral disc displacement, lumbar region (principal); M46.96 Unspecified inflammatory spondylopathy, lumbar region; R93.7 Abnormal findings on diagnostic imaging of other parts of musculoskeletal system; M51.A0 Intervertebral annulus fibrosus defect, lumbar region, unspecified size; M47.896 Other spondylosis, lumbar region; M51.369 Other intervertebral disc degeneration, lumbar region without mention of lumbar back pain or lower extremity pain; M24.28 Disorder of ligament, vertebrae; M48.061 Spinal stenosis, lumbar region without neurogenic claudication; M51.379 Other intervertebral disc degeneration, lumbosacral region without mention of lumbar back pain or lower extremity pain; M47.897 Other spondylosis, lumbosacral region; N28.1 Cyst of kidney, acquired
CPT/HCPCS: 72148

== ENCOUNTER 2025-05-01 08:38 | Outpatient (CLI) | payer OTHER, MEDICAID, SELFPAY ==
[2025-05-01 09:49] LABS: Estmated Average Glucose 103; Hemoglobin A1C 5.2 % (4.0-6.0)
[2025-05-01 09:51] LABS: Alanine Aminotransferase 40 U/L (0-33); Albumin Level 4.0 g/dL (3.5-5.2); Alkaline Phosphatase 227 U/L (35-105); Anion Gap 16.2 (5-19); Aspartate Amino Transferase 34 U/L (0-32); Blood Urea Nitrogen 20 mg/dL (6-20); Calcium 9.4 mg/dL (8.5-10.5); Carbon Dioxide 23 mmol/L (22-29); Chloride 107 mmol/L (98-107); Cholesterol 118 mg/dL (0-200); Globulin 3.4 g/dL (1.3-4.6); Glucose 86 mg/dL (65-115); HDL Cholesterol 45 mg/dL (60-100); Osmolality Calculated 296 mOsm/kg (285-295); Potassium 4.2 mmol/L (3.5-5.1); Sodium 142 mmol/L (136-145); Total Protein 7.4 g/dL (6.6-8.7); Triglycerides 89 mg/dL (0-150)
[2025-05-01 10:19] LABS: Creatinine Urine, Random 199 mg/dL (28-217); Microalbum Creatinine Ratio Ur 5 mg/dL (0-20)
== END 2025-05-01 08:39 | disposition home or self-care (01) ==
LOC: LAB 08:40
PROVIDERS: PCP Family Medicine; Visit Provider Internal Medicine
DX: R74.8 Abnormal levels of other serum enzymes (principal); I10 Essential (primary) hypertension; E78.2 Mixed hyperlipidemia; Z79.899 Other long term (current) drug therapy
CPT/HCPCS: 36415; 80053; 80061; 82044; 83036

== ENCOUNTER → 2025-05-07 13:40 | Outpatient (BNVA) | payer MEDICARE, OTHER, SELFPAY | PROVIDERS: PCP Family Medicine; Visit Provider Podiatrist Foot & Ankle Surgery | DX: M79.672 Pain in left foot (principal); M21.622 Bunionette of left foot; M20.42 Other hammer toe(s) (acquired), left foot | CPT/HCPCS: 73630; 99214 ==

== ENCOUNTER → 2025-05-08 09:27 | Outpatient (BNVA) | payer MEDICARE, MEDICAID, SELFPAY | PROVIDERS: PCP Family Medicine; Visit Provider Internal Medicine | DX: E11.9 Type 2 diabetes mellitus without complications (principal); R74.8 Abnormal levels of other serum enzymes; I10 Essential (primary) hypertension; E78.2 Mixed hyperlipidemia; Z79.899 Other long term (current) drug therapy | CPT/HCPCS: 99214 ==

== ENCOUNTER 2025-06-14 05:53 | Day surgery (SDC) | payer MEDICARE, MEDICAID, SELFPAY ==
[2025-06-14] VITALS (7 sets, daily range): BP systolic 92–124; BP diastolic 62–77; PULSE 63–86; RESP 12–18; TEMP 36.1–36.3; O2SAT 93–97; BMI 28.7
--- NOTE | 2025-06-14 06:30 | W.PM.OPSUD ---
Surgery/Procedure H&P Update DATE OF PROCEDURE: June 14, 2025 DATE H&P PERFORMED: 05/07/25 H&P UPDATE INFORMATION: I have reviewed H&P completed within last 30 days, I have examined patient prior to procedure, No changes to prior documentation and Risks and benefits of the procedure reviewed PREOP DIAGNOSIS: Left tailor's bunion, fifth hammertoe and tendon contracture. PLANNED PROCEDURE: Operation Date: 06/14/25 07:00 Proposed Procedures p Bunionectomy Tailors(Left) - Errol Godfrey DPM s Hammertoe Correction fifth toe(Left) - Errol Godfrey DPM s Toe Tenotomy left fifth toe(Left) - Errol Godfrey DPM
--- NOTE | 2025-06-14 06:30 | PM.OPSURHP ---
Providers/Chief Complaint Primary Care Provider: Amy Cleary DO Chief Complaint: M79.672 History of Present Illness Bernie Stone is a 49 year old female left foot pain associated with a tailor's bunion. The pain is hereditary and has been progressively worsening over time, primarily due to the bunion rubbing against footwear. The patient is considering surgical intervention as the pain has reached a point where it is significantly impacting her daily activities. The patient also reports a hammer toe contracture of the fifth toe, which is causing discomfort and cosmetic concern. The toe is rotated and deformed, contributing to the patient's overall foot discomfort. Wide supportive shoes orthotics padding and spacing has failed to alleviate her symptoms along with activity modifications and anti-inflammatories. Review of Systems General: Reports: 10 or more systems reviewed and unremarkable except in HPI and below Const: Denies: fever(s) or chills Eyes: Denies: change in vision Card: Denies: chest pain or palpitations Resp: Denies: dyspnea or productive cough GI: Denies: abdominal pain, nausea or vomiting : Denies: flank pain Musc: Reports: extremity pain, joint pain, joint stiffness, limited range of motion and deformity Skin/Breast: Reports: skin tenderness; Denies: rash Neuro: Reports: difficulty walking; Denies: numbness in extremities, sensory changes or frequent falls Psych: Denies: suicidal ideation [place]/Lymph: Denies: easy bruising Medications/Allergies Home Medications ?Medication ?Instructions ?Recorded ?Confirmed ?Last Taken ?Type tirzepatide 15 mg/0.5 mL 15 mg (0.5 mL) SUBCUT Q7D 1 month 03/19/25 06/14/25 06/06/25 Rx subcutaneous pen injector #2.5 mL (Mounjaro) atorvastatin 40 mg tablet 40 mg PO BEDTIME 05/07/25 06/14/25 06/12/25 History zolpidem 10 mg tablet (Ambien) 10 mg PO BEDTIME #30 tabs 05/21/25 06/14/25 06/12/25 Rx diazepam 5 mg tablet (Valium) 5 mg PO BID PRN anxiety #60 tabs 06/13/25 06/14/25 06/13/25 Rx lamotrigine 25 mg tablet (Lamictal) 50 mg (2 x 25 mg) PO .COMPLEX 30 06/13/25 06/14/25 06/13/25 Rx days #60 tabs Allergies Allergy/AdvReac Type Severity Reaction Status Date / Time benzoin Allergy Mild rash Verified 06/14/25 06:08 chlorhexidine Allergy ALGY-Rash Verified 06/14/25 06:08 PFSH PFSH: Medical History (Updated 06/14/25 @ 06:31 by Errol Godfrey DPM) Psychiatric care Bilateral renal stones Immunization counseling High risk medication use Bipolar disorder, current episode depressed, severe, with psychotic features Post-traumatic stress disorder, chronic Osteopenia Sarcoidosis Hypoglobulinemia Other specified disorders involving the immune mechanism, not elsewhere classified Osteoporosis Hypokalemia Left breast mass Calculus of left ureter Retained ureteral stent 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 Godfrey History of appendectomy History of cholecystectomy History of hysterectomy H/O bilateral mastectomy Family History Other Cancer Diabetes Hypertension Psychiatric illness Rheumatoid arthritis Stroke Denies family history of CAD (coronary artery disease) Systemic lupus erythematosus (SLE) in adult Social History Smoking and tobacco/nicotine status: never used tobacco/nicotine Quit status (tobacco/nicotine): has quit using Year quit tobacco: 10/25 PPD x 3 Years Second hand smoke exposure: Yes Alcohol intake: never Substance/Drug Use: never Lives independently: Yes Household members: spouse Marital status: Current occupational status: disabled Do you think of yourself as: Straight/Heterosexual Current gender identity: Female Dietary Habits: Caffeine: Yes Caffeine intake frequency: carbonated beverages Vital Signs Vitals Signs: Last Vital Signs Temp 97.4 F L 06/14/25 06:15 Pulse 86 06/14/25 06:15 Resp 18 06/14/25 06:15 BP 124/77 06/14/25 06:15 Pulse Ox 97 06/14/25 06:15 O2 Del Method Room Air 06/14/25 06:17 Weight: Weight last 48 hrs Weight 157 lb Physical Exam Narrative: EXAM NARRATIVE: Patient is alert and oriented ?3 and in no acute distress. The following is a focused right lower extremity exam. VASCULAR: Dorsalis pedis and posterior tibial arteries palpable +2. Capillary refill time less than 3 seconds to the distal hallux bilaterally. Calf is supple and nontender proximally and distally. Mild edema at the operative site consistent with postoperative course. NEUROLOGICAL: Protective sensation intact to light touch. DERMATOLOGICAL: Well-healed incision right foot tailor's bunionectomy site. MUSCULOSKELETAL: Left tailor's bunion and fifth hammertoe deformity with triplane component. Pain to palpation left fifth hammertoe and left tailor's bunion. CARDIOVASCULAR: S1, S2, normal rate, normal rhythm. Dorsalis pedis and posterior tibial arteries palpable. LUNGS: Clear to auscltation, no use of acessory muscles, no crackles or wheezes. A&P Assessment and plan 1. Left foot pain: 2. Tailor's bunionette, left: 3. Hammertoe of left foot: 4. Contracture, left foot: Plan: X-ray left foot 3 views shows increased fourth metatarsal angle and left fifth hammertoe deformity taken 05/07/2025. The 49-year-old female with a history of hereditary tailor's bunion presents with left foot pain. The condition has been progressively worsening, and the patient is considering surgical intervention due to significant impact on daily activities. Additionally, the patient has a hammer toe contracture of the fifth toe, which is causing discomfort and cosmetic concern. The toe's rotation and deformity contribute to the patient's overall foot discomfort. 1. Tailor's Bunion Of The Left Foot The patient is considering surgical intervention for the tailor's bunion, which involves shaving the bump and fixating the bone with one or two small screws. The procedure is outpatient, with a recovery plan involving six weeks in a boot followed by a gradual transition to regular footwear. 2. Hammer Toe Contracture Of The Fifth Toe Surgical correction of the hammer toe contracture is an option, involving de-rotation and straightening of the toe. The procedure can be performed concurrently with the bunion surgery to address both issues simultaneously. The decision to proceed with surgical intervention for the tailor's bunion and hammer toe contra I reviewed at length with the patient, the risks, potential complications, benefits, alternatives, expectations, and typical outcomes associated with the surgery. The risks and potential complications were explained in detail, including but not limited to infection, wound dehiscence or soft tissue complications, bleeding and hematoma, chronic edema, neuritis or nerve damage producing numbness or chronic pain, CRPS, failure to relieve pain or worsening pain, thick / painful / unsightly scar, limited motion / stiffness, malposition, delayed union, malunion, or nonunion, fracture, reaction to implants, anesthetic complications, venous thromboembolism, and deformity recurrence. I discussed the notion of no regrets with the patient as it pertains to complications and outcomes. The patient seemed to understand the nature of the proposed care and required convalescence. They asked appropriate questions, answered to their satisfaction. They are aware no guarantees can be made as to a satisfactory outcome and they understand there may be other possible unforeseen complications or outcomes not listed here that will be treated accordingly if they arise. There were no written or implied guarantees given to the patient. They gave informed consent to proceed. Cture is based on the patient's reported pain and functional limitations. The surgical plan involves less hardware and allows for immediate weight-bearing in a boot, aiming for pain reduction and correction of deformity. Planning on left tailor's bunionectomy and left fifth hammertoe correction outpatient scheduled June 21, 2025 local darrell MANZO supine, 45 minutes. PDMP PDMP Reviewed: Not Reviewed Coding Level of Care Code Acute Code for [facility] Fwd Diagnoses Left foot pain M79.672 Tailor's bunionette, left M21.622 Hammertoe of left foot M20.42 Contracture, left foot M24.575
--- NOTE | 2025-06-14 06:42 | ANES.PREANE2 ---
Pre-Anesthetic Assessment Height/Weight: Height 1.57 m Weight 71.214 kg Temp Pulse Resp BP Pulse Ox O2 Del Method 97.4 F L 86 18 124/77 97 Room Air 06/14/25 06:15 06/14/25 06:15 06/14/25 06:15 06/14/25 06:15 06/14/25 06:15 06/14/25 06:17 Preop Diagnosis: Left tailor's bunion, fifth hammertoe and tendon contracture. Operation Date: 06/14/25 07:00 Proposed Procedures p Bunionectomy Tailors(Left) - Errol Godfrey DPM s Hammertoe Correction fifth toe(Left) - LOIDA Mathew Toe Tenotomy left fifth toe(Left) - Errol Godfrey DPM Familial anesthetic complications: None Was Beta Kezia taken within 24 hours: N/A Was Clonidine taken within 24 hours: N/A Last intake: Intake Last Liquid Date 06/13/25 Last Liquid Time 21:00 Last Solid Date 06/13/25 Last Solid Time 20:00 Social No alcohol and No tobacco Exam alert, oriented x 3, clear to auscultation bilaterally and regular rate & rhythm Airway Mallampati: Class II Dentition: full Metabolic Diabetes Mellitus Musc/skel sarcoidosis Anesthetic Plan ASA status: 2 Anesthesia: MAC Risk of > 500 ml blood loss (7ml/kg in children): No Medications/Allergies Home Medications ?Medication ?Instructions ?Recorded ?Confirmed ?Last Taken ?Type tirzepatide 15 mg/0.5 mL 15 mg (0.5 mL) SUBCUT Q7D 1 month 03/19/25 06/14/25 06/06/25 Rx subcutaneous pen injector #2.5 mL (Mounjaro) atorvastatin 40 mg tablet 40 mg PO BEDTIME 05/07/25 06/14/25 06/12/25 History zolpidem 10 mg tablet (Ambien) 10 mg PO BEDTIME #30 tabs 05/21/25 06/14/25 06/12/25 Rx diazepam 5 mg tablet (Valium) 5 mg PO BID PRN anxiety #60 tabs 06/13/25 06/14/25 06/13/25 Rx lamotrigine 25 mg tablet (Lamictal) 50 mg (2 x 25 mg) PO .COMPLEX 30 0806/14/25 06/13/25 Rx days #60 tabs hydrocodone 10 mg-acetaminophen 1 tab PO Q6H PRN pain 7 days #28 06/14/25 Unknown Rx 325 mg tablet tabs Allergies Allergy/AdvReac Type Severity Reaction Status Date / Time benzoin Allergy Mild rash Verified 06/14/25 06:08 chlorhexidine Allergy ALGY-Rash Verified 06/14/25 06:08 Current Medications Generic Name Dose Route Start Last Admin Trade Name Freq PRN Reason Stop Dose Admin Sodium Chloride 1,000 mls @ 30 mls/hr 06/14/25 06:15 06/14/25 06:37 Sodium Chloride 0.9% IV 06/15/25 06:14 30 mls/hr .Q24H KATY Administration PFSH Anesthesia Medical History (Updated 06/14/25 @ 06:31 by Errol Godfrey DPM) Psychiatric care Bilateral renal stones Immunization counseling High risk medication use Bipolar disorder, current episode depressed, severe, with psychotic features Post-traumatic stress disorder, chronic Osteopenia Sarcoidosis Hypoglobulinemia Other specified disorders involving the immune mechanism, not elsewhere classified Osteoporosis Hypokalemia Left breast mass Calculus of left ureter Retained ureteral stent 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 Godfrey History of appendectomy History of cholecystectomy History of hysterectomy H/O bilateral mastectomy Family History Other Cancer Diabetes Hypertension Psychiatric illness Rheumatoid arthritis Stroke Denies family history of CAD (coronary artery disease) Systemic lupus erythematosus (SLE) in adult Social History Smoking and tobacco/nicotine status: never used tobacco/nicotine Quit status (tobacco/nicotine): has quit using Year quit tobacco: 1994 - 10/25 PPD x 3 Years Second hand smoke exposure: Yes Alcohol intake: never Substance/Drug Use: never Lives independently: Yes Household members: spouse Marital status: Current occupational status: disabled Do you think of yourself as: Straight/Heterosexual Current gender identity: Female Data Anesthesia Cardiac Studies: Stress Echocardiogram 07/16/20
--- NOTE | 2025-06-14 06:51 | P.OP_ITS ---
Operative Report Date of procedure: June 14, 2025 Pre-op diagnosis: Left foot pain M79.672 Tailor's bunion of left foot M21.622 Hammertoe of left foot M20.42 Post-op diagnosis: Left foot pain M79.672 Tailor's bunion of left foot M21.622 Hammertoe of left foot M20.42 Procedure done: 1) left tailor's bunionectomy. CPT code 05657. 2) left fifth hammertoe correction. CPT code 61142. 3) tenotomy left fifth toe. CPT code 94503 Implants: 3-0 Vicryl, 4-0 nylon, Pandora headless 2.0 mm partially-threaded cannulated screw 18 mm in length. Specimens removed/disposition: None Pathology: None Surgeon: Errol Godfrey DPM Sales Engagement Executive: Christopher Estimated blood loss: 2 25 Complications: No complications Brief History: X-ray left foot 3 views shows increased fourth metatarsal angle and left fifth hammertoe deformity taken 05/07/2025. The 49-year-old female with a history of hereditary tailor's bunion presents with left foot pain. The condition has been progressively worsening, and the patient is considering surgical intervention due to significant impact on daily activities. Additionally, the patient has a hammer toe contracture of the fifth toe, which is causing discomfort and cosmetic concern. The toe's rotation and deformity contribute to the patient's overall foot discomfort. 1. Tailor's Bunion Of The Left Foot The patient is considering surgical intervention for the tailor's bunion, which involves shaving the bump and fixating the bone with one or two small screws. The procedure is outpatient, with a recovery plan involving six weeks in a boot followed by a gradual transition to regular footwear. 2. Hammer Toe Contracture Of The Fifth Toe Surgical correction of the hammer toe contracture is an option, involving de- rotation and straightening of the toe. The procedure can be performed concurrently with the bunion surgery to address both issues simultaneously. The decision to proceed with surgical intervention for the tailor's bunion and hammer toe contra I reviewed at length with the patient, the risks, potential complications, benefits, alternatives, expectations, and typical outcomes associated with the surgery. The risks and potential complications were explained in detail, including but not limited to infection, wound dehiscence or soft tissue complications, bleeding and hematoma, chronic edema, neuritis or nerve damage producing numbness or chronic pain, CRPS, failure to relieve pain or worsening pain, thick / painful / unsightly scar, limited motion / stiffness, malposition, delayed union, malunion, or nonunion, fracture, reaction to implants, anesthetic complications, venous thromboembolism, and deformity recurrence. I discussed the notion of no regrets with the patient as it pertains to complications and outcomes. The patient seemed to understand the nature of the proposed care and required convalescence. They asked appropriate questions, answered to their satisfaction. They are aware no guarantees can be made as to a satisfactory outcome and they understand there may be other possible unforeseen complications or outcomes not listed here that will be treated accordingly if they arise. There were no written or implied guarantees given to the patient. They gave informed consent to proceed. Cture is based on the patient's reported pain and functional limitations. The surgical plan involves less hardware and allows for immediate weight-bearing in a boot, aiming for pain reduction and correction of deformity. Procedure: Under mild sedation the patient was brought to the operating room and remained on the gurney in supine position. A timeout was performed. Anesthesia was then administered by the anesthesia service. Local anesthesia injected by myself consisting of 20 cc of 0.5% Marcaine plain in a left reverse Sandoval block fashion followed by 20 cc of Exparel infiltrated subcutaneously proximal to the operative site left foot. Well-padded pneumatic tourniquet applied to the left ankle. The left lower extremity was scrubbed, prepped and draped utilizing normal aseptic technique. Left foot and ankle were then exanguinated with Esmarch bandage and tourniquet inflated to 250 mmHg. Attention was directed to the left foot with noted tailor's bunion and fifth hammertoe contracture. Incision was made over the left dorsal lateral aspect of the left fifth ray encompassing the fifth toe and fifth metatarsal through skin with a #15 blade with dissection carried down to the layer of joint capsule and periosteum of the fifth metatarsal head, lateral eminence was transected followed by oblique osteotomy oriented from distal lateral to proximal medial and the head of the fifth metatarsal was shifted into an anatomically corrected position medially and fixated utilizing standard AO technique with a Pandora 2 mm screw with excellent bony apposition and compression noted. Remaining lateral shelf was transected and all rough edges smoothed. Incision was irrigated with copious amounts of sterile saline solution. The left fifth toe hammertoe contracture was then held rectus under traction and a 18-gauge needle utilized to perform a tenotomy of the flexor digitorum longus and brevis tendons within the sulcus of the left fifth toe with an audible and physical release appreciated once transected improving the sagittal plane contracture of the left fifth toe. The incision was irrigated with saline solution. Attention was then directed to the transverse plane deformity hammertoe contracture of the left fifth toe which was corrected utilizing 3-0 Vicryl at collateral ligaments and metatarsal phalangeal joint of the lateral aspect of the left fifth metatarsal phalangeal joint with direct repair successfully reducing the transverse plane component of the hammertoe deformity. The incisions were irrigated skin solution and closed with 3-0 Vicryl and 4-0 nylon and dressed with Xeroform, 4 x 4 gauze, Kerlix and Rios wrap followed by application of a cam boot to the left lower extremity. Tourniquet was deflated and a prompt hyperemic response is noted to the distal digits of the left foot. Patient tolerated procedure and anesthesia well and was transferred to the PACU with vital signs stable vascular status intact. Following a period of postoperative monitoring she will be discharged home without home care instructions and scheduled follow-up.
[2025-06-14] MEDS: ceFAZolin 2,000 mg SDV 2000 MG IVP (06:55)
[2025-06-14] MEDS: BUPivacaine 0.5% INJ 30 mL XX (07:15)
[2025-06-14] MEDS: BUPivacaine liposome 13.3 mg/mL SDV 20 mL 266 MG INFILTRATI (07:15)
[2025-06-14] MEDS: tranexamic acid 1,000 mg/10mL SDV 1000 MG IV (07:19)
--- NOTE | 2025-06-14 07:39 | P.BOP_ITS ---
Date of Procedure: 01/06/24 Surgeon: Errol Godfrey DPM Furnace Puncher(s): Catie Trinh Procedure(s) performed: Left fifth hammertoe correction, left fifth toe flexor tenotomy, left tailor's bunionectomy. Findings of the procedure(s): None Estimated blood loss: 2 mL Specimen(s) removed: No specimens Post-operative diagnosis: Left fifth hammertoe, left tailor's bunion, left foot tendon contracture.
--- NOTE | 2025-06-14 08:35 | ANE.PACU2 ---
Inpatient post-anesthesia follow up: Airway intact: Yes Vital signs: Temperature 96.9 F Pulse Rate 63 Respiratory Rate 16 Blood Pressure 111/76 Pulse Oximetry 95 Oxygen Delivery Me thod Room Air Oxygen Flow Rate Fraction of Inspir ed Oxygen Hydration adequate: Yes Nausea and vomiting: No Pain level: 1 Mental status: Baseline
== END 2025-06-14 08:35 | disposition home or self-care (01) ==
PROVIDERS: PCP Family Medicine; Visit Provider Podiatrist Foot & Ankle Surgery
PROC: 0QBP0ZZ Excision of Left Metatarsal, Open Approach (ICD-10-PCS; CPT 28110; principal; 2025-06-14 07:00)
PROC: (CPT 28285; 2025-06-14 07:00)
PROC: (CPT 28308; 2025-06-14 07:00)
DX: M21.622 Bunionette of left foot (principal); M20.42 Other hammer toe(s) (acquired), left foot; F31.5 Bipolar disorder, current episode depressed, severe, with psychotic features; F43.12 Post-traumatic stress disorder, chronic; E21.3 Hyperparathyroidism, unspecified; K21.9 Gastro-esophageal reflux disease without esophagitis; Z87.891 Personal history of nicotine dependence; E11.9 Type 2 diabetes mellitus without complications
CPT/HCPCS: 28308; 28285; 28011; 36416; 76000; 82962; C1713; J0666; J0690; J2704; J3490; J7030; J9999

== ENCOUNTER → 2025-06-17 13:26 | Outpatient (BNVA) | payer MEDICARE, MEDICAID, SELFPAY | PROVIDERS: PCP Family Medicine; Visit Provider Podiatrist Foot & Ankle Surgery | DX: M79.672 Pain in left foot (principal); M21.622 Bunionette of left foot; M20.42 Other hammer toe(s) (acquired), left foot | CPT/HCPCS: 99024 ==

== ENCOUNTER → 2025-06-27 14:10 | Outpatient (BNVA) | payer OTHER, MEDICAID, SELFPAY | PROVIDERS: PCP Family Medicine; Visit Provider Podiatrist Foot & Ankle Surgery | DX: Z98.890 Other specified postprocedural states (principal); M79.672 Pain in left foot; M21.622 Bunionette of left foot; M20.42 Other hammer toe(s) (acquired), left foot | CPT/HCPCS: 73630; 99024 ==

== ENCOUNTER → 2025-07-25 14:03 | Outpatient (BNVA) | payer OTHER, MEDICAID, SELFPAY | PROVIDERS: PCP Family Medicine; Visit Provider Podiatrist Foot & Ankle Surgery | DX: M79.672 Pain in left foot (principal); M20.42 Other hammer toe(s) (acquired), left foot; Z98.890 Other specified postprocedural states; M21.622 Bunionette of left foot | CPT/HCPCS: 73630; 99024 ==

== ENCOUNTER 2025-07-31 09:51 | Outpatient (CLI) | payer OTHER, MEDICAID, SELFPAY ==
[2025-07-31 11:29] LABS: Hematocrit 41.5 % (36-47); Hemoglobin 14.00 g/dL (11.27-16.99); Mean Corpuscular HGB Conc 33.7 g/dL (30-55); Mean Corpuscular Hemoglobin 28.3 pg (27-33); Mean Corpuscular Volume 84.0 fl (85-98); Nucleated Red Blood Cells % 0 %; Platelet Count 276 10^3/cmm (157-399); Red Blood Count 4.94 10^6/uL (3.85-5.65); White Blood Count 6.85 10^3/uL (3.29-11.43)
[2025-07-31 11:52] LABS: Alanine Aminotransferase 31 U/L (0-33); Albumin Level 4.2 g/dL (3.5-5.2); Alkaline Phosphatase 214 U/L (35-105); Anion Gap 14.4 (5-19); Aspartate Amino Transferase 34 U/L (0-32); Blood Urea Nitrogen 25 mg/dL (6-20); Calcium 9.6 mg/dL (8.5-10.5); Carbon Dioxide 24 mmol/L (22-29); Chloride 107 mmol/L (98-107); Globulin 3.7 g/dL (1.3-4.6); Glucose 78 mg/dL (65-115); Osmolality Calculated 295 mOsm/kg (285-295); Potassium 4.4 mmol/L (3.5-5.1); Sodium 141 mmol/L (136-145); Total Protein 7.9 g/dL (6.6-8.7)
== END 2025-07-31 09:52 | disposition home or self-care (01) ==
LOC: LAB 09:54
PROVIDERS: PCP Family Medicine; Visit Provider Podiatrist Foot & Ankle Surgery
DX: Z98.890 Other specified postprocedural states (principal)
CPT/HCPCS: 36415; 80053; 85025; 85651; 86140

== ENCOUNTER → 2025-08-22 13:20 | Outpatient (BNVA) | payer MEDICARE, MEDICAID, SELFPAY | PROVIDERS: PCP Family Medicine; Visit Provider Podiatrist Foot & Ankle Surgery | DX: M21.622 Bunionette of left foot (principal); M20.42 Other hammer toe(s) (acquired), left foot | CPT/HCPCS: 73630; 99213 ==

== ENCOUNTER 2025-08-24 13:51 | Emergency (ER) | payer OTHER, MEDICAID, SELFPAY ==
--- OUTSIDE RECORDS SUMMARY | 2025-08-24 13:56 | XMS_ITS | Encounter Summary ---
Author Organization [facility] Address [address] [place] [address] Care Team Providers Care Chief Engineer Waterworks Name Role Phone Christi Jack MD Primary Care Provider [phone] Encounter Details Date Type Department Care Team (Late st Contact Info) Description 03/16/2010 Ancillary Orders [facility] [address] [address] Buddy Ruff MD [address] [place], [place] [id number] Lump or Mass in Breast Social History Tobacco Use Types Packs/Day Years Used Date Smoking Tobacco: Never Assessed Comments Unknown Sex and Gender Information Value Date Recorded Sex Assigned at Not on file Legal Sex Female 3:32 AM [employer] Gender Identity Not on file Sexual Orientation Not on file documented as of this encounter Plan of Treatment Scheduled Orders Name Type Priority Associated Diagnoses Orde r Schedule MAMMO BREAST US BIOPSY RIGHT Imaging Routine Lump or Mass in Breast 1 Occurrences starting 03/16/2010 until 03/16/2011 MAMMO BREAST US BIOPSY LEFT Imaging Routine Lump or Mass in Breast 1 Occurrences starting 03/16/2010 until 03/16/2011 documented as of this encounter Results * MAMMO DIGITAL DIAG BILAT (03/26/2010 8:49 AM CDT) Anatomical Region Laterality Modality Breast Bilateral Mammography Impressions 03/29/2010 6:45 AM CDT : Bilateral diagnostic mammogram and directed bilateral breast ultrasound were performed today. The patient has several probably benign nodules noted on the left. Because of the multiple benign biopsies which have been performed on the left since the baseline study of 02/12/2009, I would recommend that we simply continue to observe these nodules sonographically to assess stability. Regarding the patient's family history, I believe she would be considered a candidate for screening MRI because of the early onset of breast cancer in her relatives, as described above. However, clinical correlation is recommended. The patient was given a result/recommendation letter. Narrative 03/29/2010 6:45 AM CDT BILATERAL DIAGNOSTIC MAMMOGRAM AND BILATERAL BREAST ULTRASOUND: HISTORY: This 34-year-old female presented to an outside facility for a baseline screening mammogram on 02/12/2009. At that time, several well-defined nodules were identified mammographically and sonographically. According to reports, the patient had a core biopsy performed at the 2 o'clock position on the left and in the subareolar region on the left. The pathology results of the core biopsy at 2 o'clock was atypia, and therefore the patient was recommended to undergo needle localization and excisional biopsy of that area. She subsequently also had a needle localization and excisional biopsy of a solid nodule identified at the 9 o'clock position on the ultrasound. The pathology of both of those biopsies were benign. On 09/29/2009, a left mammogram was performed. Several of the previously noted, well-defined nodules persisted. There was evidence of surgical changes, and when re-evaluation was carried out sonographically, there was an area of concern at the 6 o'clock position. A needle localization and excisional biopsy were performed, and that was benign as well. Recent clinical examination suggested palpable lumps at the 4 o'clock and 6 o'clock positions on the right and palpable lumps at the 7 o'clock, 12 o'clock, and two palpable lumps at the 3 o'clock position on the left. On 02/19/2010, the patient had a bilateral diagnostic mammogram and bilateral breast ultrasound, and MRI was recommended. MAMMOGRAM: We obtained CC and lateral views bilaterally along with magnification views on the left. Scar markers indicate the previous benign biopsy sites. There are also tissue marker clips present from the previous biopsies on the left. There continue to be several very well-defined nodules identified mammographically. Further evaluation sonographically is recommended. On the right, there is a moderate degree of parenchymal tissue. I do not feel that there has been any significant interval change when today's examination was compared to the patient's baseline study of 02/12/2009. However, because of the reported palpable lumps identified on recent examination, further evaluation sonographically is recommended. This digital mammogram was also analyzed by the Computer Aided Detection System (CAD), [employer], Version 8.3. BILATERAL BREAST ULTRASOUND: On the left at the 5:30-1 location, there is a bilobed, very well-defined nodule which has been noted on prior outside ultrasound. I do not feel that there has been any interval change, and continued observation is recommended. That nodule is measuring 16.0 x 12.1 x 12.1 mm in the transverse, AP, and longitudinal dimensions. At the 2-2 location, there is a very well-defined nodule measuring 7.6 x 5.6 x 8.4 mm in the transverse, AP, and longitudinal dimensions, and this too appears to be stable with the prior outside examination. Just adjacent to that are two small collections of fluid. When comparison is made with the prior examination, one of the larger nodules was the object of excisional biopsy, and I believe the finding at the 2-3 location is postoperative in nature. There is also some linear fluid collection in this vicinity as well. When scanning medially at the 9:30 location, there is a patch of perhaps fibrocystic changes, perhaps surgical changes. Again, no suspicious findings were noted. Scanning was then carried out at my direction at the 10 to 11 o'clock position as well as the 7 to 8 o'clock position because of possible palpable findings, and these areas were unremarkable. There is some minimal nodularity noted on the left in the subareolar region. I would simply recommend a left breast ultrasound be performed in six months to assess stability of the probably benign nodules. Right breast ultrasound was carried out over the areas of palpable concern noted on recent clinical breast examination at the 4 and 6 o'clock locations. These areas were unremarkable. I did examine the patient, and no suspicious palpable findings were identified. The patient's family history, however, is that a maternal aunt was diagnosed with breast cancer in her 30s, and her maternal grandmother was diagnosed with breast cancer in her 50s. The patient does not maintain communication with her mother, and therefore the health status of her mother is unknown. I feel that the patient would be considered a candidate for screening MRI because of the family history. We discussed the pros and cons of breast MRI, and I referred her back to her primary care physician for further discussion. Procedure Note Hiwot Ibanez MD - 03/29/2010 BILATERAL DIAGNOSTIC MAMMOGRAM AND BILATERAL BREAST ULTRASOUND: HISTORY: This 34-year-old female presented to an outside facility for abaseline screening mammogram on 02/12/2009. At that time, severalwell-defined nodules were identified mammographically and sonographically.According to reports, the patient had a core biopsy performed at the 2o'clock position on the left and in the subareolar region on the left.The pathology results of the core biopsy at 2 o'clock was atypia, andtherefore the patient was recommended to undergo needle localization andexcisional biopsy of that area. She subsequently also had a needlelocalization and excisional biopsy of a solid nodule identified at the 9o'clock position on the ultrasound. The pathology of both of thosebiopsies were benign. On 09/29/2009, a left mammogram was performed.Several of the previously noted, well-defined nodules persisted. Therewas evidence of surgical changes, and when re-evaluation was carried outsonographically, there was an area of concern at the 6 o'clock position.A needle localization and excisional biopsy were performed, and that wasbenign as well. Recent clinical examination suggested palpable lumps at the 4 o'clock and6 o'clock positions on the right and palpable lumps at the 7 o'clock, 12o'clock, and two palpable lumps at the 3 o'clock position on the left. On02/19/2010, the patient had a bilateral diagnostic mammogram and bilateralbreast ultrasound, and MRI was recommended. MAMMOGRAM: We obtained CC and lateral views bilaterally along with magnificationviews on the left. Scar markers indicate the previous benign biopsysites. There are also tissue marker clips present from the previousbiopsies on the left. There continue to be several very well-definednodules identified mammographically. Further evaluation sonographicallyis recommended. On the right, there is a moderate degree of parenchymal tissue. I do notfeel that there has been any significant interval change when today'sexamination was compared to the patient's baseline study of 02/12/2009.However, because of the reported palpable lumps identified on recentexamination, further evaluation sonographically is recommended. This digital mammogram was also analyzed by the Computer Aided DetectionSystem (CAD), [employer], Version 8.3. BILATERAL BREAST ULTRASOUND: On the left at the 5:30-1 location, there is a bilobed, very well-definednodule which has been noted on prior outside ultrasound. I do not feelthat there has been any interval change, and continued observation isrecommended. That nodule is measuring 16.0 x 12.1 x 12.1 mm in thetransverse, AP, and longitudinal dimensions. At the 2-2 location, thereis a very well-defined nodule measuring 7.6 x 5.6 x 8.4 mm in thetransverse, AP, and longitudinal dimensions, and this too appears to bestable with the prior outside examination. Just adjacent to that are twosmall collections of fluid. When comparison is made with the priorexamination, one of the larger nodules was the object of excisionalbiopsy, and I believe the finding at the 2-3 location is postoperative innature. There is also some linear fluid collection in this vicinity aswell. When scanning medially at the 9:30 location, there is a patch ofperhaps fibrocystic changes, perhaps surgical changes. Again, nosuspicious findings were noted. Scanning was then carried out at mydirection at the 10 to 11 o'clock position as well as the 7 to 8 o'clockposition because of possible palpable findings, and these areas wereunremarkable. There is some minimal nodularity noted on the left in thesubareolar region. I would simply recommend a left breast ultrasound beperformed in six months to assess stability of the probably benignnodules. Right breast ultrasound was carried out over the areas of palpable concernnoted on recent clinical breast examination at the 4 and 6 o'clocklocations. These areas were unremarkable. I did examine the patient, andno suspicious palpable findings were identified. The patient's family history, however, is that a maternal aunt wasdiagnosed with breast cancer in her 30s, and her maternal grandmother wasdiagnosed with breast cancer in her 50s. The patient does not maintaincommunication with her mother, and therefore the health status of hermother is unknown. I feel that the patient would be considered acandidate for screening MRI because of the family history. We discussedthe pros and cons of breast MRI, and I referred her back to her primarycare physician for further discussion. IMPRESSION: Bilateral diagnostic mammogram and directed bilateral breast ultrasoundwere performed today. The patient has several probably benign nodulesnoted on the left. Because of the multiple benign biopsies which havebeen performed on the left since the baseline study of 02/12/2009, I wouldrecommend that we simply continue to observe these nodules sonographicallyto assess stability. Regarding the patient's family history, I believe she would be considereda candidate for screening MRI because of the early onset of breast cancerin her relatives, as described above. However, clinical correlation isrecommended. The patient was given a result/recommendation letter. us External Provider [facility] MAMMO ORDERABLES Final Res ult documented in this encounter Visit Diagnoses Diagnosis Lump or mass in breast Lump or mass in breast documented in this encounter Care Teams Chief Engineer Waterworks Relationship Specialty Start Date End Date Christi Jack MD [address] [place] [id number] PCP - General Family Practice 10/13/10 documented as of this encounter
--- OUTSIDE RECORDS SUMMARY | 2025-08-24 13:56 | XMS_ITS | Encounter Summary ---
Author Organization [facility] Address [address] [place] [address] Care Team Providers Care Personnel Research Psychologist Name Role Phone Christi Jack MD Primary Care Provider +1- [phone] Encounter Details Date Type Department Care Team (Latest Contact Info) Description 06/30/2005 Outpatient Historical [facility] Family Medicine [address] [phone] Shree Doss, CHATA NO ADDRESS ON FILE HERPES ZOSTER NOS (Primary Dx) Social History Tobacco Use Types Packs/Day Years Used Date Smoking Tobacco: Never Assessed Comments Unknown Sex and Gender Information Value Date Recorded Sex Assigned at Not on file Legal Sex Female 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
--- OUTSIDE RECORDS SUMMARY | 2025-08-24 13:56 | XMS_ITS | Encounter Summary ---
Author Organization [facility] Address [address] [place] [address] Care Team Providers Care Fish Butcher Name Role Phone Christi Jack MD Primary Care Provider +1- [phone] Encounter Details Date Type Department Care Team (Latest Contact Info) Description 04/21/2005 Outpatient Historical [facility] Family Medicine [address] [phone] Shree Doss PA NO ADDRESS ON FILE SYNCOPE AND COLLAPSE (Primary Dx); ACUTE STRESS REACT NOS; HYPOGLYCEMIA NOS Social History Tobacco Use Types Packs/Day Years Used Date Smoking Tobacco: Never Assessed Comments Unknown Sex and Gender Information Value Date Recorded Sex Assigned at Not on file Legal Sex Female 3:32 AM LEADITE MAN Gender Identity Not on file Sexual Orientation Not on file documented as of this encounter Plan of Treatment Not on file documented as of this encounter Visit Diagnoses Diagnosis Syncope and collapse- Primary Unspecified acute reaction to stress Hypoglycemia, unspecified documented in this encounter Care Teams Fish Butcher Relationship Specialty Start Date End Date Christi Jack MD [address] [place] [address] PCP - General Family Practice 10/13/10 documented as of this encounter
--- OUTSIDE RECORDS SUMMARY | 2025-08-24 13:56 | XMS_ITS | Clinical Summary ---
Author Organization [facility] Address [address] [place]: [place] [address] Care Team Providers Care Sheet Metal Erector Name Role Phone Christi Jack MD Primary Care Provider +1- [phone] Allergies Active Allergy Reactions Criticality Noted Date Comments Benzoin Rash,Swelling Low 10/13/2010 Chlorhexidine Hives,Itching,Rash High 12/06/2019 Medications prazosin (MINIPRESS) 2 mg capsule Take 2 mg by mouth daily at bedtime. Take two capsules daily at bedtime 0 Active venlafaxine (EFFEXOR XR) 150 mg Extended Release 24 hour capsule Take 150 mg by mouth daily. 0 Active budesonide-formot Aman (Symbicort) 80-4.5 mcg/actuation HFA Aerosol Inhaler Take 2 Puffs by inhalation 2 times daily. 0 Active cholecalciferol, vitamin D3, (D3-2000 ORAL) Take by mouth. 0 Active busPIRone (BUSPAR) 15 mg Tablet Take 15 mg by mouth 3 times daily. 0 Active celecoxib (CeleBREX) 200 mg capsule Take 200 mg by mouth daily. 0 Active venlafaxine (EFFEXOR XR) 150 mg Extended Release 24 hour capsule Take 150 mg by mouth daily. 5 Active zolpidem (AMBIEN) 10 mg tablet Take 10 mg by mouth daily at bedtime. 0 Active busPIRone (BUSPAR) 15 mg Tablet Take 15 mg by mouth 3 times daily. 0 Active hydroCHLOROthiazi de (MICROZIDE) 12.5 mg capsuleIndication s:Lower extremity edema,Essential hypertension TAKE 1 CAPSULE BY MOUTH EVERY DAY 90 Capsule 0 1 Active prazosin (MINIPRESS) 2 mg capsule Take 4 mg by mouth daily at bedtime. 0 Active lisinopriL (PRINIVIL) 20 mg tabletIndications :Essential hypertension TAKE 1 TABLET BY MOUTH EVERY DAY 30 Tablet 0 1 Active Active Problems Problem Noted Date Diagnosed Date Asthma 02/04/2020 Back pain at L4-L5 level 11/10/2016 Arthritis involving multiple sites 12/11/2015 Elevated alkaline phosphatase level 09/06/2013 Sarcoidosis 09/06/2013 Overview (02/19/2021): Diagnosed 11/04 mediastinal lymph node Bx [place], [place] Abdominal pain, generalized 09/06/2013 Depression 09/06/2013 Lump or mass in breast 10/13/2010 Resolved Problems Problem Noted Date Diagnosed Date Resolved Date Total bilirubin, elevated 09/06/2013 Immunizations Immunization Administration Dates Next Due Influenza Seasonal Unspecified Formulation IM ,08/04/2005 Family History Medical History Relation Name Comments Breast Cancer Maternal Grandmother 50 Cancer Mother Breast Cancer Other mat aunt late 30'x Cancer Other mat aunt aunt Cancer Sister Relation Name Status Comments Maternal Grandmother Alive Mother Other mat aunt Alive Sister Social History Tobacco Use Types Packs/Day Years Used Date Smoking Tobacco: Former Comments:Quit smoking: quit 15 years ago Alcohol Use Standard Drinks/Week Comments No 0 (1 standard drink = 0.6 oz pur e alcohol) Comments Unknown Sex and Gender Information Value Date Recorded Sex Assigned at Not on file Legal Sex Female 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 Gender Identity Not on file Sexual Orientation Not on file Last Filed Vital Signs Vital Sign Reading Time Taken Comments Blood Pressure 150/100 03/13/2020 1:42 PM CDT Pulse 94 03/13/2020 1:42 PM CDT Temperature 36.1 C (97 F) 03/13/2020 1:42 PM CDT Respiratory Rate - - Oxygen Saturation - - Inhaled Oxygen Concentration - - Weight 93.4 kg (206 lb) 03/13/2020 1:42 PM CDT Height 157.5 cm (5' 2 ) 03/13/2020 1:42 PM CDT Body Mass Index 37.68 03/13/2020 1:42 PM CDT Plan of Treatment Health Maintenance Due Date Last Done Comments DTAP/TDAP/TD VACCINES (1 - Tdap) 1993 HEPATITIS B VACCINES (1 of 3 - 19+ 3-dose series) 1993 HPV/Cotest (21-29) 1995 CERVICAL CANCER SCREENING 2004 HPV/Cotest (30-65) 2004 PAP SMEAR 2004 BREAST CANCER SCREENING 2014 08/14/20 10, 03/26/2010, 02/19/2010, Additional history exists COLORECTAL SCREENING 2019 Colorectal Cancer Screening 2019 FIT-DNA Q 3 years 2019 FIT/FOBT Q 1 year 2019 Flex Sig/CT Colonography Q 5 years 2019 ZOSTER VACCINE (1 of 2) 2024 INFLUENZA VACCINE (#1) 2025 12/14/2019, 2004 Medical Devices Implanted Type Area Hog Trader Device Identifier Shelf Expiration Date Model / Serial / Lot Log [id number] - Mesh Bard Inguinal Hernia - 1 - Mesh Marlex Sheet 2x12in [id number] Implanted:Qty: 1 on 12/16/2010 Mesh N/A: Abdomen CR [employer] 08/24/2015 [id number] / / [id number] Log [id number] - Mesh Bard Inguinal Hernia - 1 - Mesh Marlex Sheet 2x12in [id number] Implanted:Qty: 1 on 12/16/2010 Mesh N/A: Abdomen CR [employer] 05/24/2015 [id number] / / [id number] Procedures Procedure Name Priority Date/Time Associated Diagnosis Comments MAMMOGRAM REPORT Routine 08/14/2010 from Last 3 Months or Most Recently Relevant to Health Maintenance Results * MAMMOGRAM REPORT (08/14/2010) us Abstract Spg Provider MAMMO ORDERABLES Final Res ult INTERFACE SYSTEM Refer to clinic/hospital department from Last 3 Months or Most Recently Relevant to Health Maintenance Care Teams Sheet Metal Erector Relationship Specialty Start Date End Date Christi Jack MD [address] [place] [address] PCP - General Family Practice 10/13/10
--- OUTSIDE RECORDS SUMMARY | 2025-08-24 13:56 | XMS_ITS | Encounter Summary ---
Author Organization [facility] Address [address] [place] [address] Care Team Providers Care Manager Business Systems Name Role Phone Christi Jack MD Primary Care Provider +1- [phone] Encounter Details Date Type Department Care Team (Latest Contact Info) Description 07/26/2006 Outpatient Historical [facility] Family Medicine- [address] [place] [address] Shree Doss PA NO ADDRESS ON FILE Routine Gynecological Examination (Primary Dx); Fluid Overload; Abnormal Weight Gain Social History Tobacco Use Types Packs/Day Years Used Date Smoking Tobacco: Never Assessed Comments Unknown Sex and Gender Information Value Date Recorded Sex Assigned at Not on file 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
--- OUTSIDE RECORDS SUMMARY | 2025-08-24 13:56 | XMS_ITS | Encounter Summary ---
Author Organization [facility] Address [address] [place] [address] Care Team Providers Care Fisheries Technical Officer Name Role Phone Christi Jack MD Primary Care Provider +1- [phone] Encounter Details Date Type Department Care Team (Late st Contact Info) Description 02/15/2005 Outpatient Historical [facility] Zaire Arellano MD [address] [place] [address] Social History Tobacco Use Types Packs/Day Years Used Date Smoking Tobacco: Never Assessed Comments Unknown Sex and Gender Information Value Date Recorded Sex Assigned at Not on file 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
--- OUTSIDE RECORDS SUMMARY | 2025-08-24 13:56 | XMS_ITS | Encounter Summary ---
Author Organization [facility] Address [address] [place] [address] Care Team Providers Care Inspector Watch Train Name Role Phone Christi Jack MD Primary Care Provider +1- [phone] Encounter Details Date Type Department Care Team (Latest Contact Info) Description 07/26/2006 Outpatient Historical [facility] Family Medicine- [address] [place] [address] Shree Doss, [place] NO ADDRESS ON FILE Screening for Malignant Neoplasm of the Cervix (Primary Dx) Social History Tobacco Use Types Packs/Day Years Used Date Smoking Tobacco: Never Assessed Comments Unknown Sex and Gender Information Value Date Recorded Sex Assigned at Not on file 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
--- OUTSIDE RECORDS SUMMARY | 2025-08-24 13:56 | XMS_ITS | Encounter Summary ---
Author Organization [facility] Address [address] [place] [address] Care Team Providers Care Software Product Specialist Name Role Phone Christi Jack MD Primary Care Provider +1- [phone] Encounter Details Date Type Department Care Team (Latest Contact Info) Description 11/23/2005 Outpatient Historical [facility] Family Medicine- [place] [address] [place] [phone] Shree Doss PA NO ADDRESS ON FILE NONINFECT VAG LEUKORRHEA (Primary Dx); BIPOLAR - MOST RECENT EPISODE UNSPECIFIED (CMS/HCC) Social History Tobacco Use Types Packs/Day Years Used Date Smoking Tobacco: Never Assessed Comments Unknown Sex and Gender Information Value Date Recorded Sex Assigned at Not on file 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 Female 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
--- OUTSIDE RECORDS SUMMARY | 2025-08-24 13:56 | XMS_ITS | Clinical Summary ---
Author Organization [facility] Address [address] [place] [address] Phone Care Team Providers Care Packing Supervisor Name Role Phone Christi Jack MD Primary Care Provider +1- [phone] Allergies Active Allergy Reactions Criticality Noted Date Comments Benzoin Rash,Swelling Low 10/13/2010 Chlorhexidine Hives,Itching,Rash High 12/06/2019 Medications prazosin (MINIPRESS) 2 mg capsule Take 2 mg by mouth daily at bedtime. Take two capsules daily at bedtime Active busPIRone (BUSPAR) 15 mg Tablet Take 15 mg by mouth 3 times daily. Active venlafaxine (EFFEXOR XR) 150 mg Extended Release 24 hour capsule Take 150 mg by mouth daily. Active cholecalciferol, vitamin D3, (D3-1999 ORAL) Take by mouth. Active Symbicort 80-4.5 mcg/actuation HFA Aerosol Inhaler Take 2 Puffs by inhalation 2 times daily. 0 Active celecoxib (CeleBREX) 200 mg capsule Take 200 mg by mouth daily. 0 Active zolpidem (AMBIEN) 10 mg tablet Take 10 mg by mouth daily at bedtime. 0 Active busPIRone (BUSPAR) 15 mg Tablet Take 15 mg by mouth 3 times daily. 0 Active prazosin (MINIPRESS) 2 mg capsule Take 4 mg by mouth daily at bedtime. 0 Active venlafaxine (EFFEXOR XR) 150 mg Extended Release 24 hour capsule Take 150 mg by mouth daily. 5 Active hydroCHLOROthiazi de (MICROZIDE) 12.5 mg capsuleIndication s:Lower extremity edema,Essential hypertension TAKE 1 CAPSULE BY MOUTH EVERY DAY 90 Capsule 1 Active lisinopriL (PRINIVIL) 20 mg tabletIndications :Essential hypertension TAKE 1 TABLET BY MOUTH EVERY DAY 30 Tablet 1 Active Active Problems Problem Noted Date Diagnosed Date Asthma 02/04/2020 Back pain at L4-L5 level 11/10/2016 Arthritis involving multiple sites 12/11/2015 Sarcoidosis 09/06/2013 Overview (09/06/2013): Diagnosed 11/04 mediastinal lymph node Bx [place], [place] Elevated alkaline phosphatase level 09/06/2013 Abdominal pain, generalized 09/06/2013 Depression 09/06/2013 Lump [...] Packs/Day Years Used Date Smoking Tobacco: Former Cigarettes Comments:quit 15 years ago Alcohol Use Standard Drinks/Week Comments No 0 (1 standard drink = 0.6 oz pur e alcohol) Comments No Sex and Gender Information Value Date Recorded Sex Assigned at Not on file 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 Gender Identity Not on file Sexual Orientation Not on file Last Filed Vital Signs Vital Sign Reading Time Taken Comments Blood Pressure 150/100 03/13/2020 1:42 PM CDT Pulse 94 03/13/2020 1:42 PM CDT Temperature 36.1 C (97 F) 03/13/2020 1:42 PM CDT Respiratory Rate 18 12/20/2010 11:15 AM INTERNET CAFE MANAGER Oxygen Saturation 96% 03/13/2020 1:42 PM CDT Inhaled Oxygen Concentration - - Weight 93.4 kg (206 lb) 03/13/2020 1:42 PM CDT Height 157.5 cm (5' 2 ) 03/13/2020 1:42 PM CDT Body Mass Index 37.68 03/13/2020 1:42 PM CDT Plan of Treatment Health Maintenance Due Date Last Done Comments DTAP/TDAP/TD VACCINES (1 - Tdap) 1993 HEPATITIS B VACCINES (1 of 3 - 19+ 3-dose series) 1993 BREAST CANCER SCREENING 2014 08/14/20 10, 03/26/2010, 02/19/2010, Additional history exists COLORECTAL SCREENING 2019 Colorectal Cancer Screening 2019 FIT-DNA Q 3 years 2019 FIT/FOBT Q 1 year 2019 Flex Sig/CT Colonography Q 5 years 2019 ZOSTER VACCINE (1 of 2) 2024 INFLUENZA VACCINE (#1) 2025 12/14/2019, 2004 Medical Devices Implanted Type Area Purchase Request Editor Device Identifier Shelf Expiration Date Model / Serial / Lot Log [id number] - Mesh Bard Inguinal Hernia - 1 - Mesh Marlex Sheet 2x12in [id number] Implanted:Qty: 1 on 12/16/2010 at [facility] Mesh N/A: Abdomen CR [employer] 08/24/2015 [id number] / / [id number] Log [id number] - Mesh Bard Inguinal Hernia - 1 - Mesh Marlex Sheet 2x12in [id number] Implanted:Qty: 1 on 12/16/2010 at [facility] Mesh N/A: Abdomen CR [employer] 05/24/2015 [id number] / / [id number] Procedures Procedure Name Priority Date/Time Associated Diagnosis Comments MAMMOGRAM REPORT Routine 08/14/2010 from Last 3 Months or Most Recently Relevant to Health Maintenance Results * MAMMOGRAM REPORT (08/14/2010) us Abstract Spg Provider MAMMO ORDERABLES Final Res ult EXTERNAL RADIOLOGY from Last 3 Months or Most Recently Relevant to Health Maintenance Insurance MEDICARE PART A AND B MEDICAID [place] Advance Directives For more information, please contact: [phone] * Full Code (Latest Code Status on File) Date Activated Date Inactivated Comments 12/19/2010 9:44 AM 12/20/2010 4:27 PM * Full Code Date Activated Date Inactivated Comments 12/16/2010 9:11 PM 12/19/2010 9:44 AM * Full Code Date Activated Date Inactivated Comments 12/16/2010 6:26 AM 12/16/2010 9:11 PM * Full Code Date Activated Date Inactivated Comments 12/16/2010 5:04 AM 12/16/2010 6:26 AM Care Teams Packing Supervisor Relationship Specialty Start Date End Date Christi Jack MD [address] [place] [address] PCP - General Family Practice 10/13/10
--- OUTSIDE RECORDS SUMMARY | 2025-08-24 13:56 | XMS_ITS | Encounter Summary ---
Author Organization [facility] Address [address] [place] [address] Care Team Providers Care Tool And Die Maker Apprentice Name Role Phone Christi Jack MD Primary Care Provider +1- [phone] Encounter Details Date Type Department Care Team (Latest Contact Info) Description 08/31/2005 Outpatient Historical [facility] Family Medicine- [address] [place] [phone] Shree Doss PA NO ADDRESS ON FILE DEPRESSIVE DISORDER NEC (Primary Dx); NONPSYCHOTIC MENTAL DISORDER NOS Social History Tobacco Use Types Packs/Day Years Used Date Smoking Tobacco: Never Assessed Comments Unknown Sex and Gender Information Value Date Recorded Sex Assigned at Not on file Legal Sex Female 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
--- OUTSIDE RECORDS SUMMARY | 2025-08-24 13:56 | XMS_ITS | Encounter Summary ---
Author Organization [facility] Address [address] [place] [address] Care Team Providers Care Music Autographer Name Role Phone Christi Jack MD Primary Care Provider +1- [phone] Encounter Details Date Type Department Care Team (Latest Contact Info) Description 08/04/2005 Outpatient Historical [facility] Medicine- [address] [phone] Shree Doss, [place] NO ADDRESS ON FILE SCREENING MAL NEOP-CERVIX (Primary Dx) Social History Tobacco Use Types Packs/Day Years Used Date Smoking Tobacco: Never Assessed Comments Unknown Sex and Gender Information Value Date Recorded Sex Assigned at Not on file Legal Sex Female 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
--- OUTSIDE RECORDS SUMMARY | 2025-08-24 13:56 | XMS_ITS | Encounter Summary ---
Author Organization [facility] Address [address] [place] [address] Care Team Providers Care Materials Associate Name Role Phone Christi Jack MD Primary Care Provider +1- [phone] Encounter Details Date Type Department Care Team (Late st Contact Info) Description 04/14/2005 Outpatient Historical [facility] Jacques Cage, DO [address] [place] [address] Social History Tobacco Use Types Packs/Day Years Used Date Smoking Tobacco: Never Assessed Comments Unknown Sex and Gender Information Value Date Recorded Sex Assigned at Not on file Legal 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 [facility] has changed the methodology for TSH, and with this change the reference range has changed from 0.49-4.67 to 0.35-5.5 uIU/ml. 04/14/2005 11:2 0 AM CDT us Jacques Cage DO CHEMISTRY ORDERABLES Final Result INTERFACE SYSTEM Refer to clinic/hospital department documented in this encounter Visit Diagnoses Not on filedocumented in this encounter Care Teams Materials Associate Relationship Specialty Start Date End Date Christi Jack MD [address] [place] [address] PCP - General Family Practice 10/13/10 documented as of this encounter
--- OUTSIDE RECORDS SUMMARY | 2025-08-24 13:56 | XMS_ITS | Encounter Summary ---
Author Organization [facility] Address [address] [place] [address] Care Team Providers Care Grain Broker Name Role Phone Christi Jack MD Primary Care Provider +1- [phone] Encounter Details Date Type Department Care Team (Latest Contact Info) Description 12/29/2005 Outpatient Historical [facility] Family Medicine [address] [phone] Shree Doss, CHATA NO ADDRESS ON FILE Fluid Overload (Primary Dx); Unspecified Backache; Cervicalgia Social History Tobacco Use Types Packs/Day Years Used Date Smoking Tobacco: Never Assessed Comments Unknown Sex and Gender Information Value Date Recorded Sex Assigned at Not on file Legal Sex Female 3:32 AM MANAGER PRIVATE Gender Identity Not on file Sexual Orientation Not on file documented as of this encounter Plan of Treatment Not on file documented as of this encounter Visit Diagnoses Diagnosis Fluid overload- Primary Backache, unspecified Cervicalgia documented in this encounter Care Teams Grain Broker Relationship Specialty Start Date End Date Christi Jack MD [address] [place] [address] PCP - General Family Practice 10/13/10 documented as of this encounter
--- OUTSIDE RECORDS SUMMARY | 2025-08-24 13:56 | XMS_ITS | Encounter Summary ---
Author Organization [facility] Address [address] [place] [address] Care Team Providers Care Paleontological Helper Name Role Phone Christi Jack MD Primary Care Provider +1- [phone] Encounter Details Date Type Department Care Team (Latest Contact Info) Description 06/02/2005 Outpatient Historical [facility] Family Medicine [place] [address] [facility] [address] [place] [phone] Shree Doss, [place] NO ADDRESS ON FILE Dermatitis due to plant (Primary Dx); DEPRESSIVE DISORDER NEC Social History Tobacco Use Types Packs/Day Years Used Date Smoking Tobacco: Never Assessed Comments Unknown Sex and Gender Information Value Date Recorded Sex Assigned at Not on file Legal Sex Female 3:32 AM OPERATIONS BOARDMAN Gender Identity Not on file Sexual Orientation Not on file documented as of this encounter Plan of Treatment Not on file documented as of this encounter Visit Diagnoses Diagnosis Dermatitis due to plant- Primary Contact dermatitis and other eczema due to plants (except food) Depressive disorder, not elsewhere classified documented in this encounter Care Teams Paleontological Helper Relationship Specialty Start Date End Date Christi Jack MD [address] [place] [address] PCP - General Family Practice 10/13/10 documented as of this encounter
--- OUTSIDE RECORDS SUMMARY | 2025-08-24 13:56 | XMS_ITS | Encounter Summary ---
Author Organization [facility] Address [address] [place] [address] Care Team Providers Care Flatwork Presser Name Role Phone Christi Jack MD Primary Care Provider [phone]- [phone] Encounter Details Date Type Department Care Team (Latest Contact Info) Description 04/13/2005 Outpatient Historical [facility] Family Medicine- [address] [place] [phone] Shree Doss [place] NO ADDRESS ON FILE HYPOGLYCEMIA NOS (Primary Dx); DEPRESSIVE DISORDER NEC; CHEST PAIN NOS; DYSURIA Social History Tobacco Use Types Packs/Day Years Used Date Smoking Tobacco: Never Assessed Comments Unknown Sex and Gender Information Value Date Recorded Sex Assigned at Not on file 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
--- OUTSIDE RECORDS SUMMARY | 2025-08-24 13:56 | XMS_ITS | Encounter Summary ---
Author Organization [facility] Address [address] [place] [address] Care Team Providers Care Topper Press Operator Name Role Phone Christi Jack MD Primary Care Provider +1- [phone] Encounter Details Date Type Department Care Team (Late st Contact Info) Description 03/26/[address] 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 Procedure Note Hiwot Ibanez MD - 03/29/2010 For full report, please see diagnostic mammogram of 03/26/2010. us External Provider [facility] MAMMO ORDERABLES Final Res ult documented in this encounter Visit Diagnoses Diagnosis Lump or mass in breast Lump or mass in breast documented in this encounter Care Teams Topper Press Operator Relationship Specialty Start Date End Date Christi Jack MD [address] [place] [phone] PCP - General Family Practice 10/13/10 documented as of this encounter
--- OUTSIDE RECORDS SUMMARY | 2025-08-24 13:56 | XMS_ITS | Encounter Summary ---
Author Organization [facility] Address [address] [place] [address] Care Team Providers Care Judicial Clerk Name Role Phone Christi Jack MD Primary Care Provider +1- [phone] Encounter Details Date Type Department Care Team (Latest Contact Info) Description 03/24/2005 Outpatient Historical [facility] Family Medicine [place] [address] [facility] [address] [place] [phone] Shree Doss, [place] NO ADDRESS ON FILE Dermatitis due to plant (Primary Dx); DEPRESSIVE DISORDER NEC; TENOSYNOV HAND/WRIST NEC Social History Tobacco Use Types Packs/Day Years Used Date Smoking Tobacco: Never Assessed Comments Unknown Sex and Gender Information Value Date Recorded Sex Assigned at Not on file 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
--- OUTSIDE RECORDS SUMMARY | 2025-08-24 13:56 | XMS_ITS | Encounter Summary ---
Author Organization [facility] Address [address] [place] [address] Care Team Providers Care House Servant Name Role Phone Christi Jack MD Primary Care Provider +1- [phone] Encounter Details Date Type Department Care Team (Latest Contact Info) Description 05/04/2006 Outpatient Historical [facility] Family Medicine [address] [phone] Shree Doss, [place] NO ADDRESS ON FILE Abnormal Weight Gain (Primary Dx); Edema; Other Acne Social History Tobacco Use Types Packs/Day Years Used Date Smoking Tobacco: Never Assessed Comments Unknown Sex and Gender Information Value Date Recorded Sex Assigned at Not on file 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
--- OUTSIDE RECORDS SUMMARY | 2025-08-24 13:56 | XMS_ITS | Encounter Summary ---
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 (Primary Dx); LOSS OF WEIGHT; CONTRACEPTIVE MANGMT NOS; Vaccine for influenza Social History Tobacco Use Types Packs/Day Years Used Date Smoking Tobacco: Never Assessed Comments Unknown Sex and Gender Information Value Date Recorded Sex Assigned at Not on file 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
[2025-08-24 14:07] VITALS: BP 130/95; PULSE 64; RESP 18; TEMP 36.4; O2SAT 95; BMI 23.2
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
[2025-08-24 15:37] LABS: Hematocrit 44.3 % (36-47); Hemoglobin 15.10 g/dL (11.27-16.99); Mean Corpuscular HGB Conc 34.1 g/dL (30-55); Mean Corpuscular Hemoglobin 28.4 pg (27-33); Mean Corpuscular Volume 83.3 fl (85-98); Nucleated Red Blood Cells % 0 %; Platelet Count 295 10^3/cmm (157-399); Red Blood Count 5.32 10^6/uL (3.85-5.65); White Blood Count 8.04 10^3/uL (3.29-11.43)
[2025-08-24 15:58] LABS: Alanine Aminotransferase 51 U/L (0-33); Albumin Level 4.4 g/dL (3.5-5.2); Alkaline Phosphatase 243 U/L (35-105); Anion Gap 16.8 (5-19); Aspartate Amino Transferase 54 U/L (0-32); Blood Urea Nitrogen 9 mg/dL (6-20); Calcium 9.9 mg/dL (8.5-10.5); Carbon Dioxide 25 mmol/L (22-29); Chloride 101 mmol/L (98-107); Creatinine Clr Calc Pharmacy 61.9938; Globulin 3.8 g/dL (1.3-4.6); Glucose 81 mg/dL (65-115); Osmolality Calculated 286 mOsm/kg (285-295); Potassium 3.8 mmol/L (3.5-5.1); Sodium 139 mmol/L (136-145); Total Protein 8.2 g/dL (6.6-8.7)
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
[2025-08-24 16:14] VITALS: BP 140/102; PULSE 62; RESP 16; O2SAT 98
== END 2025-08-24 16:15 | disposition home or self-care (01) ==
PROVIDERS: Emergency Provider Family Medicine; PCP Family Medicine
DX: M54.2 Cervicalgia (principal); I10 Essential (primary) hypertension; Z87.891 Personal history of nicotine dependence
CPT/HCPCS: 36415; 70450; 71045; 72040; 80053; 85025; 99284

== ENCOUNTER → 2025-09-23 09:54 | Outpatient (BNVA) | payer MEDICARE, MEDICAID, SELFPAY | PROVIDERS: PCP Family Medicine; Visit Provider Podiatrist Foot & Ankle Surgery | DX: Z98.890 Other specified postprocedural states (principal); M21.622 Bunionette of left foot; M20.42 Other hammer toe(s) (acquired), left foot | CPT/HCPCS: 73630; 99213 ==